=== PATIENT | male | born 1935 | race Caucasian/White ===

== ENCOUNTER → 2016-10-31 | Outpatient (REF) ==
[~2016-10-31] MED LIST: ALBU17IN INH; ALBU17IN2 INH; AMLO10TA2 PO; ATEN50TA2 PO; Aranesp SC; CELE20TA PO; CITA20TA4 PO; CITA40TA4 PO; DOXY100C PO; FLOM5CAP PO; LEVA750T PO; LEVO112T2 PO; LEVO200T4 PO; LIPI20TA PO; NAME21CA PO; NYST-6 TOP; NYST100024 TOP; PANT40TA2 PO; PERIDEX RINSE MT; POTA10TA16 PO; POTA25TA4 PO; POTA75TA2 PO; PROTPAK PO; SAVICAP PO; SENN1TAB2 PO; SERT-141 PO; SIMV40TA2 PO; TRAM37.53 PO; TYLE325T5 PO; XANA0.5T PO
== END ==
LOC: SKLAB4 10:06
PROVIDERS: ATTEND Internal Medicine
DX: R50.9 Fever, unspecified (principal); J02.9 Acute pharyngitis, unspecified

== ENCOUNTER → 2016-11-04 | Outpatient (REF) | payer MEDICARE, MEDICAID ==
[~2016-11-04] MED LIST changes: +DULC10SU2 PR; +ENEM1ENE4 PR; +ENSULIQ64 PO; +FEVE650S3 PR; +GUAIDM5UD PO; +MILKSUS PO; +MIRT1TAB PO; +SENN8.6T54 PO
--- NOTE | 2016-11-04 10:20 | REP ---
Portable chest x-ray: Semi-erect AP view. History: Fever and cough. Comparison study: September 24, 2016. Findings: The lungs are exposed at a relatively low inspiratory level similar to the prior study. No infiltrate is seen. Pleural angles are sharp. Mild cardiomegaly is observed. Pulmonary vasculature is not increased. Impression: No acute disease. Signed by Jose Maria Norman MD 11/04/2016 10:24 A
== END ==
LOC: SKLAB3 08:48
PROVIDERS: ATTEND Internal Medicine
DX: R50.9 Fever, unspecified (principal); R05 Cough

== ENCOUNTER 2016-11-07 17:01 | Inpatient (IN) | payer MEDICARE, MEDICAID ==
[~2016-11-07] VITALS: Ht 182.9 cm; Wt 76.4 kg
[~2016-11-07 17:01] MED LIST changes: -DULC10SU2 PR; -ENEM1ENE4 PR; -ENSULIQ64 PO; -FEVE650S3 PR; -GUAIDM5UD PO; -MILKSUS PO; -MIRT1TAB PO; -SENN8.6T54 PO
[2016-11-07 17:50] LABS: BASO % 0.1 % (0.0-1.0); EOS # 0.1 K/mm3 (0.0-0.50); EOS % 0.4 % (0.0-3.0); LARGE UNSTAINED CELL # 0.1 K/mm3 (0.0-0.4); LARGE UNSTAINED CELL % 0.9 % (0.0-4.0); LYMPH # 1.1 K/mm3 (1.5-4.5); LYMPH % 7.4 % (24.0-44.0); MEAN CORPUSCULAR HEMOGLOBIN 29.7 pg (27.0-33.0); MEAN CORPUSCULAR VOLUME 93.1 fl (80.0-96.0); MONO # 0.3 K/mm3 (0.0-0.8); NEUTROPHILS # 13.3 K/mm3 (1.8-7.7); NEUTROPHILS % 89.2 % (36.0-66.0); PLATELET COUNT, AUTOMATED 297 k/mm3 (150-450); WHITE BLOOD COUNT 14.9 K/mm3 (4.0-10.0)
[2016-11-07 18:01] LABS: CALCIUM LEVEL 8.6 MG/DL (8.8-10.2); CREATININE FOR GFR 1.83 MG/DL (0.70-1.30); POTASSIUM SERUM 3.7 MEQ/L (3.5-5.1)
[2016-11-07] MEDS ORDERED: ONDANSETRON 4MG/2ML VIAL (J2405) IV PRN (19:45)
--- NOTE | 2016-11-07 19:46 | REP ---
AP portable chest: 11/07/2016: Comparison: 11/04/2016, 09/24/2016. Clinical history dyspnea. Findings. Lungs are quite hypoinflated, even more so than the previous studies. Elevation of the right diaphragm compared to the left is seen. There is basilar atelectatic change along the right diaphragm. The heart size is difficult to evaluate it appears grossly unchanged from previous study and I suspect some cardiomegaly. The aorta is tortuous. The airway is intact. There are right upper quadrant clips from prior cholecystectomy. Degenerative changes are seen in the spine and shoulders. Impression: 1. Cardiomegaly without demetrius edema. 2. Low lung volumes with some atelectatic changes along the elevated right diaphragm. No definite effusion, visible infiltrate or other acute finding. Very limited portable semi-erect chest. Signed by Hieu Nolen MD 11/07/2016 08:07 P
[2016-11-07] MEDS ORDERED: FUROSEMIDE 40 MG/4 ML VIAL (J1940) As Ordered ONE (19:55)
[2016-11-07] MEDS ORDERED: MIRT1TAB PO (19:58)
[2016-11-07] MEDS ORDERED: ENSULIQ64 PO (19:58)
[2016-11-07] MEDS ORDERED: GUAIDM5UD PO (19:58)
[2016-11-07] MEDS ORDERED: AMLO10TA2 PO (20:04)
[2016-11-07] MEDS ORDERED: ENEM1ENE4 PR (20:04)
[2016-11-07] MEDS ORDERED: DULC10SU2 PR (20:04)
[2016-11-07] MEDS ORDERED: TYLE325T5 PO (20:04)
[2016-11-07] MEDS ORDERED: SENN8.6T54 PO (20:04)
[2016-11-07] MEDS ORDERED: FEVE650S3 PR (20:04)
[2016-11-07] MEDS ORDERED: MILKSUS PO (20:04)
[2016-11-07] MEDS: SENOKOT S TAB PO SCH (21:00)
[2016-11-07] MEDS ORDERED: LevoFLOXacin 250 MG in APPROPRIATE DILUENT 1 EA IV SCH (22:00)
--- NOTE | 2016-11-07 22:19 | HPE ---
DATE OF ADMISSION: 11/07/2016 PRIMARY CARE PROVIDER: Milana Luevano DO CHIEF COMPLAINT: Patient presented from [facility] for increased shortness of breath, hypoxia, cough, and lethargy. PAST MEDICAL HISTORY: 1. Hypertension. 2. Hyperlipidemia. 3. Hypothyroidism. 4. Multiple myeloma, status post donor bone transplant in 1998. 5. History of chronic urinary retention, has chronic indwelling Martin for 1 year. 6. Gastroesophageal reflux disease (GERD). 7. 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 10. Compression vertebral fractures with bilateral lower extremity weakness. 11. History of aspiration. 12. Recurrent dehydration. 13. Esophageal dysmotility. He has a percutaneous endoscopic gastrostomy (PEG) tube in place. 14. Osteoarthritis. 15. History of chronic kidney disease stage 3. 16. Dementia. 17. Hypothyroidism. 18. History of multiple falls and inability to walk. HISTORY OF PRESENT ILLNESS: This is an 81-year-old male from [facility] who has been there for 1 month after prolonged hospitalization from August to September here where he was treated for urinary tract infection, vertebral fracture, dehydration, acute kidney injury, who had been having cough for the past 4 days and also an episode of temperature of 101.5 about 4 days ago. The patient was getting cough syrup. He had a chest x-ray done 4 days ago, which did not reveal any abnormalities; however, this morning, he was noted to be hypoxic, requiring oxygen, when at baseline he does not require any. He was also lethargic and complained of shortness of breath and was having congested cough and so was sent to the emergency room for evaluation. In the emergency department, the patient was afebrile. Was oxygenating at 89 to 90% on room air. His chest x-ray showed chronically elevated right hemidiaphragm. Cardiomegaly without any edema with small lung volumes and some atelectatic changes, but x-ray was very limited in the study. The patient was also noted to have a sodium of 155 with a creatinine of 1.8, which is elevated from baseline. The patient had a BNP of 1300. The patient was diagnosed with hyponatremia, dehydration, acute kidney injury. Because of her elevated BNP, there was concern for congestive heart failure (CHF) in view of the diastolic dysfunction, and so he was also given a dose of Lasix in the emergency room. Subsequently, the patient was admitted to the hospitalist service for dehydration, metabolic encephalopathy, hyponatremia, and acute kidney injury. The patient's UA and urine culture have been ordered, but the results are not available. The patient has a white count of 14.9, there is no definite source of infection found at this point. PAST SURGICAL HISTORY: 1. Cholecystectomy 30 years ago. SOCIAL HISTORY: The patient does not smoke. Does not use recreational drugs. No history of alcohol abuse. ALLERGIES: PENICILLIN. FAMILY HISTORY: HOME MEDICATIONS: - Tylenol 650 mg per rectum every four hours as needed - Tylenol 650 mg by mouth every four hours as needed - amlodipine 10 mg daily - atenolol 75 mg daily - bisacodyl 10 mg per rectum daily as needed - Colace and Senna one tablet by mouth twice a day - Enema one daily as needed for constipation - Ensure Life liquid one twice a day - dextromethorphan 10 mL syrup every six hours as needed - Synthroid 225 mcg by mouth daily - memantine 21 mg by mouth daily - milk of magnesia 30 mL by mouth daily as needed for constipation - mirtazapine 7.5 mg at bedtime - pantoprazole 40 mg by mouth daily - sertraline 150 mg by mouth twice a day - SAVision one capsule by mouth twice a day REVIEW OF SYSTEMS: The patient is very lethargic at this point. Responds only to when in pain and then he does wake up a little bit and answers "yes," no further history can be elicited from the patient, most of the history came from review of chart and from , who is present at the bedside. The patient had an episode of fever four days ago at 101.5 maximum temperature (t-max). Since then, he has had no fever. However, he has been having cough with some expectoration going on for the past 4 days . This morning, he has been noted to be very lethargic. No history of any diarrhea or dehydration. No history of any chest pain. PHYSICAL EXAMINATION: VITAL SIGNS: Blood pressure 118/66, pulse 64, respiratory rate 20, temperature 97.8, pulse oximetry 97% on room air. GENERAL: The patient is drowsy, responding to pain and vigorous shaking. HEENT: Normocephalic, atraumatic. Dry mucous membranes. Anicteric eyes. CHEST: Coarse breath sounds present bilaterally. Decreased breath sounds on the right base. CARDIOVASCULAR: S1, S2 regular. No rub, murmur, or gallop. ABDOMEN: Soft, nontender. Bowel sounds present. Has PEG tube in place. EXTREMITIES: No edema. GENITOURINARY: The patient has a chronic indwelling Martin. LABORATORY DATA: WBC 14.9, hemoglobin 10.5, platelets 297. Sodium 155, potassium 3.7, chloride 114, bicarbonate 33, BUN 73, creatinine 1.83, glucose 166, calcium 8.6. Troponin 0.32. BNP 1300. Chest x-ray shows cardiomegaly without demetrius edema, lower lung volumes with some atelectatic changes, along with elevated right hemidiaphragm. There is no effusion or infiltrates, or any other acute findings. Very limited study. ASSESSMENT AND PLAN: This is an 81-year-old male who has been admitted to the hospitalist service for metabolic encephalopathy, hypernatremia, acute kidney injury, and dehydration. PLAN: 1. For metabolic encephalopathy, probably due to hypernatremia, we will manage hypernatremia with 5% dextrose and free water through PEG tube. 2. Hypernatremia. Possibly due to dehydration and inadequate free water intake. We will give Efudex dose and free water through PEG tube. 3. Acute kidney injury due to prerenal causes, mostly dehydration. WE will hydrate the patient. 4. Leukocytosis. Could be reactive; however, cannot rule out any underlying source of infection, either in the urine. In view of his chronic indwelling Martin, may have a urinary tract infection (UTI) or may have some infiltrates in the retrocardiac area, so we will get a CT of the chest done. If UA or CT chest is suggestive of infection, we will start the patient on antibiotic. 5. Hypothyroidism. We will continue with Synthroid. 6. Hypertension. We will continue with amlodipine and atenolol with hold parameters. 7. Dementia. We will hold sertraline, mirtazapine, and memantine at present until the patient is more awake and back to his baseline mental status. 8. Deep vein thrombosis (DVT) prophylaxis has been ordered. 9. For gastrointestinal prophylaxis, we will continue with pantoprazole. 10. Feeding. We will continue with tube feeding with free water supplementation. 11. Elevated troponin. Could be due to acute renal failure; however, we will repeat cardiac enzymes two more sets.
--- NOTE | 2016-11-08 00:20 | REPUSA ---
CLINICAL STATEMENT: Rule out pneumonia TECHNIQUE: CT of the chest was performed without intravenous contrast by obtaining contiguous axial s lices from level of the thyroid gland to level of the kidneys. Post imaging 3-D technique processing was utilized and multiplanar reformats were obtained in coronal and sagittal projections. COMPARISON: CT chest 11.06.15 FINDINGS: Lower neck: Visualized thyroid gland unremarkable. No mass or suspicious cystic lesion. Lungs / airways / pleura: There are bilateral pulmonary opacities appearing more subsegmental atelect asis in the lower lobes toward the bases, whereas more infiltrating consolidative-like opacities in t he posterior right upper and superior right lower lobes. Central and visualized peripheral airways ar e patent. Mediastinum: No mass or suspicious cystic lesion. Heart normal in size with mitral valve prosthesis a nd coronary no pericardial effusion. Thoracic aorta and pulmonary trunk normal in caliber. Lymph nodes: No enlarged adenopathy. Upper abdomen: Status post cholecystectomy. Osseous structures/Soft tissues/thoracic wall: Thoracic arthrosis with severe T6, T12 and L2 (with gaspar rrounding area) compression deformities with sclerotic changes. Multilevel moderate degenerative felix ges of the cervical and thoracic spine with disc space narrowing. No soft tissue abnormality or herni a. Line/devices: None. IMPRESSION: 1. Posterior right upper and superior right lower lobe infiltrate and consolidative opacities would b e consistent with clinical suspicion of pneumonia. 2. There are severe T6, T12 and L2 compression deformities which may be chronic although in the setti ng of recent trauma or tenderness MRI thoracic spine can be obtained for better evaluation for acute fracture.
[2016-11-08 00:59] VITALS: BP 135/71
[2016-11-08] MEDS: D5W 1,000 ML IV SCH ×2 (01:15→11:40)
--- NOTE | 2016-11-08 01:21 | EDDOCDS ---
Physician Documentation [facility] Name: Saúl Cormier Age: 81 yrs Sex: Male : 1935 Arrival Date: 11/07/2016 Time: 17:01 Bed Admit Hold Private MD: Milana Luevano E Disposition: 11/07/16 19:46 Hospitalization ordered by Lourdes Rich for Inpatient Admission. Preliminary diagnosis is Shortness of breath - Rule Out Congestive Heart Failure. - Bed requested for 4 [place]. - Status is Inpatient Admission. cz - Condition is Stable. - Problem is new. - Symptoms are unchanged. Historical: - Allergies: PENICILLINS (Rash); - Home Meds: 1. mirtazapine 7.5 mg Oral tab once daily 2. Namenda XR 21 mg oral CSpX 1 cap once daily 3. Protonix 40 mg Oral TbEC 1 tab once daily 4. Atenolol 75 mg Oral once daily 5. Sertraline 150 mg daily 6. Norvasc 10 mg Oral tab 1 tab once daily 7. Senna Plus oral tab daily 8. Levothyroxine 334 mcg Oral once daily - PMHx: Hypercholesterolemia; Hypertension; Hypothyroidism; kidney failure; Multiple Myeloma; - PSHx: Unable to obtain; - Social history: Smoking status: Patient states former smoker of tobacco. No barriers to communication noted, The patient speaks fluent Lao. - Family history: Not pertinent. - : The pt / caregiver states he / she is not on anticoagulants. Home medication list is obtained from the patient. - Exposure Risk Screening:: None identified. Vital Signs: 11/07 17:17 BP 120 / 71; Pulse 66; Resp 20; Temp 97.8(TE); Pulse Ox 90% on R/A; Weight 89.81 kg / jmk 198 lbs; Height 6 ft. (182.88 cm); 19:01 BP 119 / 69 (auto/); jp6 19:02 Pulse 62 MON; Pulse Ox 96% ; jp6 19:16 BP 130 / 74 (auto/); jp6 19:17 Pulse 62 MON; jp6 19:23 Pulse 64 MON; Pulse Ox 97% ; jp6 19:31 BP 118 / 66 (auto/); jp6 19:32 Pulse 64 MON; Pulse Ox 97% ; jp6 19:44 Pulse 62 MON; Pulse Ox 97% ; jp6 19:46 BP 131 / 70 (auto/); jp6 20:01 BP 116 / 70 (auto/); jp6 20:02 Pulse 70 MON; Pulse Ox 98% ; jp6 20:16 BP 110 / 68 (auto/); jp6 20:16 Pulse 62 MON; Pulse Ox 99% ; jp6 20:31 BP 111 / 66 (auto/); jp6 20:32 Pulse 64 MON; jp6 20:46 BP 117 / 66 (auto/); jp6 20:47 Pulse 62 MON; jp6 21:01 BP 113 / 64 (auto/); jp6 21:02 Pulse 66 MON; jp6 21:16 BP 110 / 63 (auto/); jp6 21:19 Pulse 64 MON; Pulse Ox 98% ; jp6 21:46 BP 120 / 71 (auto/); jp6 21:46 Pulse 66 MON; Pulse Ox 96% ; jp6 22:01 BP 109 / 56 (auto/); jp6 22:02 Pulse 64 MON; Pulse Ox 96% ; jp6 22:16 BP 112 / 57 (auto/); jp6 22:16 Pulse 68 MON; Pulse Ox 98% ; jp6 22:31 BP 111 / 59 (auto/); jp6 22:32 Pulse 70 MON; jp6 22:46 BP 107 / 59 (auto/); jp6 22:47 Pulse 70 MON; jp6 22:57 Pulse 70 MON; Pulse Ox 96% ; jp6 23:01 BP 118 / 66 (auto/); jp6 23:02 Pulse 74 MON; Pulse Ox 97% ; jp6 23:11 Pulse 66 MON; Pulse Ox 96% ; jp6 23:16 BP 117 / 71 (auto/); jp6 23:31 BP 101 / 59 (auto/); jp6 23:32 Pulse 66 MON; jp6 23:46 BP 99 / 57 (auto/); jp6 23:47 Pulse 64 MON; jp6 11/08 00:01 BP 102 / 62 (auto/); jp6 00:02 Pulse 62 MON; jp6 00:16 BP 118 / 64 (auto/); jp6 00:16 Pulse 66 MON; jp6 11/07 17:17 Body Mass Index 26.85 (89.81 kg, 182.88 cm) nat MDM: 11/07 17:40 Financial registration complete. gjb 17:44 Billboard Poster/Pulse Ox/q 30 min VS ordered. br1 17:44 IV Saline Lock ordered. br1 17:44 Rhythm Strip to chart ordered. br1 17:44 Undress patient appropriately for examination ordered. br1 17:45 B-Type Natiuretic Peptide Ordered. EDMS 17:45 Basic Metabolic Profile Ordered. EDMS 17:45 CBC with Diff Ordered. EDMS 17:46 Cardiac Injury Profile Ordered. EDMS 17:46 Troponin Ordered. EDMS 17:46 -Influenza A&B Rapid Antigen - Nose Ordered. EDMS 17:46 ECG WITH READING ER PHYS+CARDIAG ordered. EDMS 17:47 [facility] Payment Agreement was scanned into [employer] and attached to record. gjb 18:16 Chest, 1 View Ordered. EDMS 19:30 BED REQUEST+ADM ordered. EDMS 19:32 B-Type Natiuretic Peptide Reviewed. br1 19:32 Basic Metabolic Profile Reviewed. br1 19:32 CBC with Diff Reviewed. br1 19:32 Cardiac Injury Profile Reviewed. br1 19:32 Troponin Reviewed. br1 19:32 -Influenza A&B Rapid Antigen - Nose Reviewed. br1 19:41 Furosemide 40 mg IVP once ordered. br1 21:07 CARDIAC MARKER PANEL Ordered. EDMS 21:07 CARDIAC MARKER PANEL Ordered. EDMS 21:08 Admission / Observation Status ordered. EDMS 21:08 NPO DIET ordered. EDMS 21:11 CBC WITH DIFFERENTIAL Ordered. EDMS 21:11 BASIC METABOLIC PROFILE Ordered. EDMS 21:19 URINALYSIS Ordered. EDMS 21:19 URINE CULTURE Ordered. EDMS 21:29 CT Chest without contrast Ordered. EDMS 21:34 CARDIAC MARKER PANEL Ordered. EDMS Administered Medications: 20:00 Drug: Furosemide 40 mg [furosemide 10 mg/mL injection solution (4 mL)] Route: IVP; jp6 Site: left antecubital; Signatures: Dispatcher [employer] EDMS Julien Mccrary RN RN jmk Zecher, Calvin, RN RN cz Lopresti, Mary-Elizabeth, Head P[employer] Unit ml3 Loki George MD MD br1 Smitha Wilkinson Jessica RN jp6 The chart was reviewed and I authenticate all verbal orders and agree with the evaluation and treatment provided.Corrections: (The following items were deleted from the chart) 18:38 17:46 Chest, 2 view (PA\E\Lat)+XR ordered. EDMS EDMS :18 21:11 ARTERIAL BLOOD GAS ordered. EDMS EDMS 21:34 21:07 CARDIAC MARKER PANEL ordered. EDMS EDMS Attachments: 17:47 [facility] Payment Agreement gjb [email or web address]
--- NOTE | 2016-11-08 01:21 | EDDOCDS ---
Nurse's Notes [facility] Name: Saúl Cormier Age: 81 yrs Sex: Male : 1935 Arrival Date: 11/07/2016 Time: 17:01 Bed Admit Hold Private MD: Milana Luevano E Diagnosis: Shortness of breath-Rule Out Congestive Heart Failure Presentation: 11/07 17:12 Presenting complaint: Patient states: SOB onset this am. congested cough. without pain. [facility] Adult Sepsis Screening: The patient does not have new or worsening altered mentation. Patient has a respiratory rate of greater than or equal to 22 (1 point). Systolic blood pressure is greater than 100. Patient has a qSOFA score of 1- Negative Sepsis Screen. Suicide/Homicide risk assessment- the patient denies having any suicidal and/or homicidal ideations and does not present with any other emotional, behavioral or mental health complaints. Status: retired. Transition of care: patient was received from. 17:12 Acuity: RACHEL Level 3 [facility] 17:12 Method Of Arrival: Ambulance [facility] Triage Assessment: 17:14 General: Appears debilitated male with congested cough. alert, but poor historian. resp jmk labored and demonstrates work of breathing. Feeding tube intact to mid abd. Martin patent with cloudy urine.. Pain: Denies pain. Respiratory: Onset: The symptoms/episode began/occurred this morning, Breath sounds are coarse bilaterally. in left posterior lower lobe and right posterior lower lobe. GI: Abdomen is flat, non- distended feeding tube noted to mid abd. Historical: - Allergies: PENICILLINS (Rash); - Home Meds: 1. mirtazapine 7.5 mg Oral tab once daily 2. Namenda XR 21 mg oral CSpX 1 cap once daily 3. Protonix 40 mg Oral TbEC 1 tab once daily 4. Atenolol 75 mg Oral once daily 5. Sertraline 150 mg daily 6. Norvasc 10 mg Oral tab 1 tab once daily 7. Senna Plus oral tab daily 8. Levothyroxine 334 mcg Oral once daily - PMHx: Hypercholesterolemia; Hypertension; Hypothyroidism; kidney failure; Multiple Myeloma; - PSHx: Unable to obtain; - Social history: Smoking status: Patient states former smoker of tobacco. No barriers to communication noted, The patient speaks fluent French. - Family history: Not pertinent. - : The pt / caregiver states he / she is not on anticoagulants. Home medication list is obtained from the patient. - Exposure Risk Screening:: None identified. Screenin:32 Screening information is obtained from the patient. Fall risk: At risk due to prior [facility] history of falls. Assistance ADL's: Requires assistance with meal preparation, this assistance is provided by residence staff, bathing, assistance is provided by residence staff, dressing, assistance is provided by residence staff, toileting, assistance is provided by residence staff, ambulation, assistance is provided by residence staff, housework, assistance is provided by residence staff, medication administration, assistance is provided by residence staff. Abuse/DV Screen: The patient / caregiver reports he/she is: not in a situation that causes fear, pain or injury. Nutritional screening: No deficits noted. Advance Directives: Currently, there is no health care proxy. There is no active DNR order. There is no living will. 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 Advance directive information has not previously been placed in an [facility] medical record. home support is adequate. Assessment: 18:09 General: Appears appears debilitated. lips dry. resting with eyes closed resp regular jmk and is mouth breathing. does rouse to verbal stimuli. maintaining sat of 97% with 4 l NC.. 19:34 General: Appears in no apparent distress, comfortable, to be sleeping. Behavior is jp6 appropriate for age, cooperative. Pain: Denies pain. Neurological: No deficits noted. Level of Consciousness is obeys commands, Oriented to person. EENT: No deficits noted. Cardiovascular: Capillary refill < 3 seconds Heart tones S1 S2 present Rhythm is sinus rhythm No ectopy. Respiratory: Airway is patent Respiratory effort is even, unlabored, Breath sounds with rales inspiratory expiratory bilaterally. in right middle lobe, left lower lobe, right lower lobe, left posterior lower lobe, right posterior middle lobe and right posterior lower lobe Breath sounds with rhonchi. GI: Abdomen is flat, non- distended Bowel sounds present X 4 quads. : Martin in place Urine is cloudy. Derm: Skin is pink, warm & dry. Musculoskeletal: No deficits noted. 20:30 Reassessment: Critical care time stopped, patient has stabilized. Patient denies pain jp6 at this time. Neurological: Level of Consciousness is obeys commands, Oriented to person. Cardiovascular: Rhythm is sinus rhythm No ectopy. Respiratory: Breath sounds with rales Breath sounds with rhonchi inspiratory expiratory bilaterally. in right middle lobe, left lower lobe, right lower lobe, left posterior lower lobe, right posterior middle lobe and right posterior lower lobe. Derm: Skin is pink, warm & dry. 21:30 Reassessment: Patient appears in no apparent distress at this time. Patient denies pain jp6 at this time. General: Appears comfortable, to be sleeping. Behavior is cooperative. Neurological: Level of Consciousness is obeys commands. Cardiovascular: Rhythm is sinus rhythm No ectopy. Derm: Skin is pink, warm & dry. 22:34 Reassessment: Patient appears in no apparent distress at this time. Patient denies pain jp6 at this time. General: Behavior is appropriate for age, cooperative. Pain: Denies pain. Neurological: Level of Consciousness is obeys commands, Oriented to person. EENT: No deficits noted. Cardiovascular: Rhythm is sinus rhythm No ectopy. Respiratory: Airway is patent Respiratory effort is even, unlabored, Breath sounds with rhonchi inspiratory expiratory bilaterally. Derm: Skin is pink, warm & dry. 23:30 Reassessment: Patient appears in no apparent distress at this time. pt appears to be jp6 sleeping.Turned and repositioned.Martin catheter is patent and drng. Feeding is going at 30ml/hr.. 11/08 00:17 Reassessment: Patient appears in no apparent distress at this time. General: Appears to jp6 be sleeping. Neurological: No deficits noted. Cardiovascular: Rhythm is sinus rhythm No ectopy. Respiratory: Airway is patent Respiratory effort is even, unlabored. Derm: Skin is pink, warm & dry. Vital Signs: 11/07 17:17 BP 120 / 71; Pulse 66; Resp 20; Temp 97.8(TE); Pulse Ox 90% on R/A; Weight 89.81 kg; [facility] Height 6 ft. (182.88 cm); 19:01 BP 119 / 69 (auto/); jp6 19:02 Pulse 62 MON; Pulse Ox 96% ; jp6 19:16 BP 130 / 74 (auto/); jp6 19:17 Pulse 62 MON; jp6 19:23 Pulse 64 MON; Pulse Ox 97% ; jp6 19:31 BP 118 / 66 (auto/); jp6 19:32 Pulse 64 MON; Pulse Ox 97% ; jp6 19:44 Pulse 62 MON; Pulse Ox 97% ; jp6 19:46 BP 131 / 70 (auto/); jp6 20:01 BP 116 / 70 (auto/); jp6 20:02 Pulse 70 MON; Pulse Ox 98% ; jp6 20:16 BP 110 / 68 (auto/); jp6 20:16 Pulse 62 MON; Pulse Ox 99% ; jp6 20:31 BP 111 / 66 (auto/); jp6 20:32 Pulse 64 MON; jp6 20:46 BP 117 / 66 (auto/); jp6 20:47 Pulse 62 MON; jp6 21:01 BP 113 / 64 (auto/); jp6 21:02 Pulse 66 MON; jp6 21:16 BP 110 / 63 (auto/); jp6 21:19 Pulse 64 MON; Pulse Ox 98% ; jp6 21:46 BP 120 / 71 (auto/); jp6 21:46 Pulse 66 MON; Pulse Ox 96% ; jp6 22:01 BP 109 / 56 (auto/); jp6 22:02 Pulse 64 MON; Pulse Ox 96% ; jp6 22:16 BP 112 / 57 (auto/); jp6 22:16 Pulse 68 MON; Pulse Ox 98% ; jp6 22:31 BP 111 / 59 (auto/); jp6 22:32 Pulse 70 MON; jp6 22:46 BP 107 / 59 (auto/); jp6 22:47 Pulse 70 MON; jp6 22:57 Pulse 70 MON; Pulse Ox 96% ; jp6 23:01 BP 118 / 66 (auto/); jp6 23:02 Pulse 74 MON; Pulse Ox 97% ; jp6 23:11 Pulse 66 MON; Pulse Ox 96% ; jp6 23:16 BP 117 / 71 (auto/); jp6 23:31 BP 101 / 59 (auto/); jp6 23:32 Pulse 66 MON; jp6 23:46 BP 99 / 57 (auto/); jp6 23:47 Pulse 64 MON; jp6 11/08 00:01 BP 102 / 62 (auto/); jp6 00:02 Pulse 62 MON; jp6 00:16 BP 118 / 64 (auto/); jp6 00:16 Pulse 66 MON; jp6 11/07 17:17 Body Mass Index 26.85 (89.81 kg, 182.88 cm) [facility] Vitals: 11/07 17:17 Log In Time N/A - ambulance arrival. [facility] ED Course: 17:02 Patient visited by Carrie Shannon, External Grinder Tool. lbd 17:02 Milana Luevano is Private Physician. lbd 17:02 Patient moved to Waiting lbd 17:03 Patient moved to 5 lbd 17:06 Loki George MD is Attending Physician. br1 17:13 Triage Initiated jmk 17:32 quality assurance monitor on. Pulse ox on. jmk 17:32 Maintain field IV. Gauge & site: 18 lac. jmk 17:34 Patient visited by Loki George MD. br1 17:47 [facility] Payment Agreement was scanned into [facility] and attached to record. gjb 17:48 B-Type Natiuretic Peptide Sent. jmk 17:48 Basic Metabolic Profile Sent. jmk 17:48 CBC with Diff Sent. jmk 17:48 Cardiac Injury Profile Sent. jmk 17:48 Troponin Sent. jmk 17:50 Patient visited by Dina Segovia PCA. jlf 17:50 Patient visited by Dina Segovia PCA. jlf 17:50 EKG done. (by ED staff). Reviewed by Loki George MD. jlf 18:11 -Influenza A&B Rapid Antigen - Nose Sent. jmk 19:08 Bibi Montero,RN is Primary Nurse. jp6 19:08 Patient visited by Bibi Montero,RN. jp6 19:32 The patient / caregiver is instructed regarding the plan of care and ED course. jp6 19:32 O2 via nasal cannula \T\ 4L/min. jp6 19:46 Lourdes Rich is Hospitalizing Provider. br1 20:02 Patient moved to Admit Hold cz 20:25 Chest, 1 View Returned. EDMS 21:44 Turned to right side. Cleaned of incontinence. Linen changed. arlen 21:45 Patient visited by Belinda Thomas PCA. arlen 22:32 No procedures done that require assistance. jp6 11/08 00:40 CT Chest without contrast Returned. EDMS Administered Medications: 11/07 20:00 Drug: Furosemide 40 mg [furosemide 10 mg/mL injection solution (4 mL)] Route: IVP; jp6 Site: left antecubital; Order Results: Lab Order: B-Type Natiuretic Peptide; SPEC'M 11/07/16 17:23 Test: BRAIN NATRIURETIC PEPTIDE; Value: 1300; Range: <100; Abnormal: Above high normal; Units: PG/ML; Status: F Lab Order: Basic Metabolic Profile; SPEC'M 11/07/16 17:23 Test: GLUCOSE, FASTING; Value: 166; Range: 83-110; Abnormal: Above high normal; Units: MG/DL; Status: F Test: BLOOD UREA NITROGEN; Value: 73; Range: 7-18; Abnormal: Above high normal; Units: MG/DL; Status: F Test: CREATININE FOR GFR; Value: 1.83; Range: 0.70-1.30; Abnormal: Above high normal; Units: MG/DL; Status: F Test: GLOMERULAR FILTRATION RATE; Value: 38.0; Range: >35; Status: F Test: SODIUM LEVEL; Value: 155; Range: 136-145; Abnormal: Above high normal; Units: MEQ/L; Status: F Test: POTASSIUM SERUM; Value: 3.7; Range: 3.5-5.1; Units: MEQ/L; Status: F Test: CHLORIDE LEVEL; Value: 114; Range: 98-107; Abnormal: Above high normal; Units: MEQ/L; Status: F Test: CARBON DIOXIDE LEVEL; Value: 33; Range: 21-32; Abnormal: Above high normal; Units: MEQ/L; Status: F Test: ANION GAP; Value: 8; Range: 8-16; Units: MEQ/L; Status: F Test: CALCIUM LEVEL; Value: 8.6; Range: 8.8-10.2; Abnormal: Below low normal; Units: MG/DL; Status: F Test Note: ; Units are mL/min/1.73 m2 Chronic Kidney Disease Staging per NKF: Stage I & II GFR >=60 Normal to Mildly Decreased Stage III GFR 30-59 Moderately Decreased Stage IV GFR 15-29 Severely Decreased Stage V GFR <15 Very Little GFR Left ESRD GFR <15 on SKIVER HEEL TAP Lab Order: CBC with Diff; SPEC'M 11/07/16 17:23 Test: WHITE BLOOD COUNT; Value: 14.9; Range: 4.0-10.0; Abnormal: Above high normal; Units: K/mm3; Status: F Test: RED BLOOD COUNT; Value: 3.52; Range: 4.30-6.10; Abnormal: Below low normal; Units: M/mm3; Status: F Test: HEMOGLOBIN; Value: 10.5; Range: 14.0-18.0; Abnormal: Below low normal; Units: g/dl; Status: F Test: HEMATOCRIT; Value: 32.7; Range: 42.0-52.0; Abnormal: Below low normal; Units: %; Status: F Test: MEAN CORPUSCULAR VOLUME; Value: 93.1; Range: 80.0-96.0; Units: fl; Status: F Test: MEAN CORPUSCULAR HEMOGLOBIN; Value: 29.7; Range: 27.0-33.0; Units: pg; Status: F Test: MEAN CORPUSCULAR HGB CONC; Value: 32.0; Range: 32.0-36.5; Units: g/dl; Status: F Test: RED CELL DISTRIBUTION WIDTH; Value: 14.0; Range: 11.5-14.5; Units: %; Status: F Test: PLATELET COUNT, AUTOMATED; Value: 297; Range: 150-450; Units: k/mm3; Status: F Test: NEUTROPHILS %; Value: 89.2; Range: 36.0-66.0; Abnormal: Above high normal; Units: %; Status: F Test: LYMPH %; Value: 7.4; Range: 24.0-44.0; Abnormal: Below low normal; Units: %; Status: F Test: MONO %; Value: 2.0; Range: 0.0-5.0; Units: %; Status: F Test: EOS %; Value: 0.4; Range: 0.0-3.0; Units: %; Status: F Test: BASO %; Value: 0.1; Range: 0.0-1.0; Units: %; Status: F Test: LARGE UNSTAINED CELL %; Value: 0.9; Range: 0.0-4.0; Units: %; Status: F Test: NEUTROPHILS #; Value: 13.3; Range: 1.8-7.7; Abnormal: Above high normal; Units: K/mm3; Status: F Test: LYMPH #; Value: 1.1; Range: 1.5-4.5; Abnormal: Below low normal; Units: K/mm3; Status: F Test: MONO #; Value: 0.3; Range: 0.0-0.8; Units: K/mm3; Status: F Test: EOS #; Value: 0.1; Range: 0.0-0.50; Units: K/mm3; Status: F Test: BASO #; Value: 0.0; Range: 0.0-0.2; Units: K/mm3; Status: F Test: LARGE UNSTAINED CELL #; Value: 0.1; Range: 0.0-0.4; Units: K/mm3; Status: F Lab Order: Cardiac Injury Profile; SPEC'M 11/07/16 17:23 Test: CPK CREATINE PHOSPHOKINASE; Value: 36; Range: 39-308; Abnormal: Below low normal; Units: U/L; Status: F Test: CK-MB VALUE MASS; Value: 1.0; Range: 0.0-3.6; Units: NG/ML; Status: F Test: MB/CK RELATIVE INDEX; Value: 2.77; Range: < OR =4; Status: F Test Note: ; DIAGNOSIS CRITERIA MMB ng/ml Relative Index (RI) NON-AMI < or = 5 N/A GOODE [place]ONE > 5 < or = 4 AMI > 5 > 4 Lab Order: Troponin; SPEC'M 11/07/16 17:23 Test: TROPONIN I; Value: 0.32; Range: < 0.10; Abnormal: Above high normal; Units: NG/ML; Status: F Test Note: ; Troponin I Reference Interval for [place] LOCI: 99th Percentile= 0.00-0.045 ng/ml Risk Stratification: <= 0.10 ng/ml Decreased Risk for Adverse Clinical Events. 0.10-1.50 ng/ml Increased Risk for Adverse Clinical Events. Evaluation of additional criterion and/or repeat testing in 2-6 hours is suggested to rule out myocardial damage. >= 1.50 ng/ml Indicative of Myocardial Injury. Lab Order: -Influenza A&B Rapid Antigen - Nose; SPEC'M 11/07/16 18:08 Test: INFLUENZA A RAPID SCR by ICA; Value: INFLUENZA A RESULTS NEGATIVE; Status: F Test: INFLUENZA A RAPID SCR by ICA; Value: Comments:; Status: F Test: INFLUENZA B RAPID SCR by ICA; Value: INFLUENZA B RESULTS NEGATIVE; Status: F Test Note: ; The Influenza test is a direct rapid immunoassay for the qualitative detection of Influenza viral antigen. Cell culture (Viral Culture) testing should be considered to confirm NEGATIVE results and to assist in detecting other viruses that can provide similar clinical symptoms. Please contact the lab within 24 hours ([phone]) if confirmatory testing is desired. Lab Order: CARDIAC MARKER PANEL; SPEC'M 11/07/16 21:21 Test: CPK CREATINE PHOSPHOKINASE; Value: 32; Range: 39-308; Abnormal: Below low normal; Units: U/L; Status: F Test: CK-MB VALUE MASS; Value: 1.0; Range: 0.0-3.6; Units: NG/ML; Status: F Test: MB/CK RELATIVE INDEX; Value: 3.12; Range: < OR =4; Status: F Test: TROPONIN I; Value: 0.35; Range: < 0.10; Abnormal: Above high normal; Units: NG/ML; Status: F Test Note: ; DIAGNOSIS CRITERIA MMB ng/ml Relative Index (RI) NON-AMI < or = 5 N/A GOODE ZONE > 5 < or = 4 AMI > 5 > 4 Lab Order: URINALYSIS; SPEC'M 11/07/16 22:04 Test: APPEARANCE, URINE; Value: HAZY; Range: CLEAR; Status: F Test: COLOR, URINE; Value: YELLOW; Range: YELLOW; Status: F Test: PH,URINE; Value: 5.0; Range: 5.0-9.0; Units: UNITS; Status: F Test: SPECIFIC GRAVITY URINE AUTO; Value: 1.010; Range: 1.002-1.035; Status: F Test: PROTEIN, URINE AUTO; Value: NEGATIVE; Range: NEGATIVE; Units: mg/dL; Status: F Test: GLUCOSE, URINE (UA) AUTO; Value: NEGATIVE; Range: NEGATIVE; Units: mg/dL; Status: F Test: KETONE, URINE AUTO; Value: NEGATIVE; Range: NEGATIVE; Units: mg/dL; Status: F Test: UROBILINOGEN, URINE AUTO; Value: 0.2; Range: 0.0-2.0; Units: mg/dL; Status: F Test: BILIRUBIN, URINE AUTO; Value: NEGATIVE; Range: NEGATIVE; Status: F Test: NITRITE, URINE AUTO; Value: POSITIVE; Range: NEGATIVE; Status: F Test: LEUKOCYTE ESTERASE, URINE AUTO; Value: 2+; Range: NEGATIVE; Abnormal: Above high normal; Status: F Test: BLOOD, URINE BLOOD; Value: 1+; Range: NEGATIVE; Abnormal: Above high normal; Status: F Test: WBC, URINE AUTO; Value: 12; Range: 0-3; Abnormal: Above high normal; Units: /HPF; Status: F Test: RBC, URINE AUTO; Value: 8; Range: 0-3; Abnormal: Above high normal; Units: /HPF; Status: F Test: BACTERIA, URINE AUTO; Value: 1+; Range: NEGATIVE; Abnormal: Above high normal; Status: F Test: SQUAMOUS EPITHELIAL CELL UR AU; Value: 0; Range: 0-6; Units: /HPF; Status: F Test: MUCUS, URINE; Value: SMALL; Range: NEGATIVE; Status: F Test: HYALINE CAST, URINE AUTO; Value: 17; Range: 0-1; Units: /LPF; Status: F Test: AMORPHOUS SEDIMENT; Value: SMALL; Range: NEGATIVE; Abnormal: Above high normal; Status: F Radiology Order: Chest, 1 View Test: Chest, 1 View REASON FOR EXAMINATION: Shortness of Breath; AP portable chest: 11/07/2016:; ; Comparison: 11/04/2016, 09/24/2016.; ; Clinical history dyspnea.; ; Findings. Lungs are quite hypoinflated, even more so than the previous studies.; Elevation of the right diaphragm compared to the left is seen. There is basilar; atelectatic change along the right diaphragm. The heart size is difficult to; evaluate it appears grossly unchanged from previous study and I suspect some; cardiomegaly. The aorta is tortuous. The airway is intact. There are right; upper quadrant clips from prior cholecystectomy. Degenerative changes are seen; in the spine and shoulders.; ; Impression:; ; 1. Cardiomegaly without demetrius edema.; ; 2. Low lung volumes with some atelectatic changes along the elevated right; diaphragm. No definite effusion, visible infiltrate or other acute finding.; Very limited portable semi-erect chest.; ; ; ; ; Signed by; Hieu Nolen MD 11/07/2016 08:07 P; Radiology Order: CT Chest without contrast Test: CT Chest without contrast REASON FOR EXAMINATION: evaluate for pneumonia; ; CLINICAL STATEMENT: Rule out pneumonia; TECHNIQUE: CT of the chest was performed without intravenous contrast by obtaining contiguous axial s; lices from level of the thyroid gland to level of the kidneys. Post imaging 3-D technique processing; was utilized and multiplanar reformats were obtained in coronal and sagittal projections.; COMPARISON: CT chest 11.06.15; FINDINGS:; Lower neck: Visualized thyroid gland unremarkable. No mass or suspicious cystic lesion.; Lungs / airways / pleura: There are bilateral pulmonary opacities appearing more subsegmental atelect; asis in the lower lobes toward the bases, whereas more infiltrating consolidative-like opacities in t; he posterior right upper and superior right lower lobes. Central and visualized peripheral airways ar; e patent.; Mediastinum: No mass or suspicious cystic lesion. Heart normal in size with mitral valve prosthesis a; nd coronary no pericardial effusion. Thoracic aorta and pulmonary trunk normal in caliber.; Lymph nodes: No enlarged adenopathy.; Upper abdomen: Status post cholecystectomy.; Osseous structures/Soft tissues/thoracic wall: Thoracic arthrosis with severe T6, T12 and L2 (with gaspar; rrounding area) compression deformities with sclerotic changes. Multilevel moderate degenerative felix; ges of the cervical and thoracic spine with disc space narrowing. No soft tissue abnormality or herni; a.; Line/devices: None.; IMPRESSION:; 1. Posterior right upper and superior right lower lobe infiltrate and consolidative opacities would b; e consistent with clinical suspicion of pneumonia.; 2. There are severe T6, T12 and L2 compression deformities which may be chronic although in the setti; ng of recent trauma or tenderness MRI thoracic spine can be obtained for better evaluation for acute; fracture.; ; Outcome: 19:46 Decision to Hospitalize by Provider. br1 11/08 00:36 Discharge Assessment: Patient confused, Oriented to person, Patient unable to repeat 3 jp6 named objects, Patient able to independently bathe himself/herself with little or no assistance, to independently dress himself/herself with little or no assistance, to independently attend to toileting needs with little or no assistance, patient administered narcotics - no. The following High Risk Discharge criteria are identified: None. Admitted to Med/Surg accompanied by tech, via stretcher, with oxygen, with chart. Condition: unchanged. CT Study completed. Admission hand-off: Report Faxed Fax receipt verified by 4 juanito. Property :Personal belongings accompany Pt. 01:20 Patient left the ED. cz Signatures: Dispatcher [employer] EDMS Carrie Shannon, External Grinder Tool Unit lbd Julien Mccrary,RN RN Hema Bello, PANKAJ RN cz Loki George MD MD br1 Belinda Thomas, WIND TURBINE SHEET METAL WORKER WIND TURBINE SHEET METAL WORKER Dina Jimenez, WIND TURBINE SHEET METAL WORKER WIND TURBINE SHEET METAL WORKER Smitha Granados Jessica,RN RN jp6 [email or web address]
[2016-11-08] MEDS: VANCOMYCIN HCL 750 MG, VIAL MATE ADAPTER 1 EACH in D5W 250 ML IV SCH ×2 (03:18→11:40)
--- NOTE | 2016-11-08 04:41 | PHACANCOPD ---
PHARMACY VANCOMYCIN DOSING Pt Demographics Demographics Patient Age:81 , Weight:77.500 , Gender: male Adjusted Body Weight Date: 11/08/16, Adjusted Body Weight: [77.5] KgACTUAL WT Vancomycin Vancomycin indication: HCAP Vancomycin Target Ranges: 15-20 mcg/ml Vancomycin Load Y/N: No Load Dose Date Time Vancomycin Load Dose: Date: Time: Vancomycin Dose Date: 11/08/16. Current Vancomycin Dose: [750MG IV Q12H] Intermittent Dosing?: No Labs Labs Laboratory Tests 11/07/16 17:23 Calcium Level 8.6 L, Total Creatine Kinase 36 L, Red Blood Count 3.52 L, Mean Corpuscular Volume 93.1, Mean Corpuscular Hemoglobin 29.7, Mean Corpuscular Hemoglobin Concent 32.0, Red Cell Distribution Width 14.0, Neutrophils (%) (Auto ) 89.2 H, Lymphocytes (%) (Auto) 7.4 L, Monocytes (%) (Auto) 2.0, Eosinophils (% ) (Auto) 0.4, Basophils (%) (Auto) 0.1, Neutrophils # (Auto) 13.3 H, Lymphocytes # (Auto) 1.1 L, Monocytes # (Auto) 0.3, Eosinophils # (Auto) 0.1, Basophils # (Auto) 0.0 Micro Microbiology 11/07/16 Influenza Virus Type A Antigen - Final, Complete 11/07/16 Influenza Virus Type B Antigen - Final, Complete 11/07/16 Urine Culture, Received Pending Creatinine Clearance Date:11/08/16. Creatinine Clearance: [34.7].CALCULATED Pending Labs TROUGH ORDERED FOR 11/08@2300 Assessment and Plan Maintaining Current Dose?: Yes Reason for dose change: No Dose Change Pharmacist Note Pharmacist Note Date: 11/08/16. Pharmacist note:pATIENT W/POSSIBLE HCAP :treating w/meropenem 1 gm iv q12h& Vancomycin 750mg iv q12h(ist trough ordered for tonight @2300) Patient crcl=34.7 Will continue to monitor DENISE [facility] Nov 08, 2016 04:40
[2016-11-08 06:00] VITALS: BP 127/64
[2016-11-08] MEDS: LEVOTHYROXINE 0.112 MG TAB (112 MCG) PO SCH (06:12)
[2016-11-08 06:19] LABS: BASO % 0.1 % (0.0-1.0); EOS % 0.2 % (0.0-3.0); LARGE UNSTAINED CELL # 0.1 K/mm3 (0.0-0.4); LARGE UNSTAINED CELL % 0.4 % (0.0-4.0); LYMPH # 0.4 K/mm3 (1.5-4.5); MEAN CORPUSCULAR HEMOGLOBIN 29.8 pg (27.0-33.0); MEAN CORPUSCULAR HGB CONC 31.7 g/dl (32.0-36.5); MONO # 0.3 K/mm3 (0.0-0.8); MONO % 1.7 % (0.0-5.0); NEUTROPHILS # 19.5 K/mm3 (1.8-7.7); NEUTROPHILS % 95.7 % (36.0-66.0); PLATELET COUNT, AUTOMATED 270 k/mm3 (150-450); RED CELL DISTRIBUTION WIDTH 14.2 % (11.5-14.5); WHITE BLOOD COUNT 20.3 K/mm3 (4.0-10.0)
[2016-11-08 06:26] LABS: CALCIUM LEVEL 8.3 MG/DL (8.8-10.2); CREATININE FOR GFR 1.96 MG/DL (0.70-1.30); GLOMERULAR FILTRATION RATE 35.1 (>35); POTASSIUM SERUM 3.6 MEQ/L (3.5-5.1)
[2016-11-08] MEDS ORDERED: ENOXAPARIN 30 MG/0.3 ML SYR (J1650) SC SCH (09:00)
[2016-11-08] MEDS: amLODIPine 10 MG TAB PO SCH (09:00)
[2016-11-08] MEDS ORDERED: PANTOPRAZOLE 40MG TAB (PROTONIX) PO SCH (09:00)
[2016-11-08] MEDS: MEROPENEM INJ 1 GM in D5W MINI-BAG PLUS 100 ML IV SCH ×2 (09:10→20:05)
[2016-11-08] MEDS: SENOKOT S TAB PO SCH ×2 (09:12→20:05)
[2016-11-08] MEDS: ATENOLOL 50 MG TAB PO SCH (09:13)
[2016-11-08 14:00] VITALS: BP 113/62
[2016-11-08 15:29] VITALS: BP 120/68
[2016-11-08] MEDS: D5W/0.9% SODIUM CHLORIDE 1,000 ML IV SCH (15:34)
--- NOTE | 2016-11-08 16:13 | IPN ---
DATE: 11/08/2016 SUBJECTIVE: Today, the patient tells me that he was having some shortness of breath but he feels as though it is improving. He denies chest pain, lightheadedness, dizziness, nausea or vomiting. Other than feeling a little bit short of breath, he has no specific complaints other than increased chronic back pain. OBJECTIVE: VITAL SIGNS: Temperature 96.8, pulse 78, respiratory rate 20, blood pressure 127/64, oxygen saturation 96% on three liters nasal cannula. The patient has no oxygen requirement at his baseline. GENERAL: He is a frail, elderly, man laying flat in bed at a 60 degree angle. He does not appear to be in any acute distress. HEENT: Chronic facial asymmetry. Very dry mucous membranes. CARDIOVASCULAR: S1, S2, regular. RESPIRATORY: Actually somewhat wheezy. I do not appreciate any rales. He is actually moving air quite well. ABDOMEN: Percutaneous endoscopic gastrostomy (PEG) tube is in place, clean, dry and intact. There is no tenderness. Bowel sounds are present. EXTREMITIES: No clubbing, cyanosis, or edema. LABORATORY STUDIES: WBC 20.3 up from 14.9, hemoglobin 10.2, hematocrit 31.9. Chemistry panel: Sodium 149 improved from 155, potassium 3.6, chloride 109 down from 114, bicarbonate 31, BUN 75 up slightly from 73, creatinine 1.6 up from 1.8. The patient's baseline appears to be 1.3. The patient had several sets of cardiac enzymes which were all fairly similar at 0.32, 0.35, 0.33, 0.31. The patient has a BNP initially at the time presentation which was 1300. He received some D5 and this has dropped to 542. A urinalysis is not impressive for infection. Urine culture and blood cultures are pending. A flu swab and respiratory panel are both negative. The patient did have a CT scan of his chest which reveals posterior right upper and superior right lower infiltrate and consolidative opacities consistent with pneumonia. There are severe T6, T12, and L2 compression deformities which may be chronic. ASSESSMENT AND PLAN: This is an 81-year-old man who presented from skilled-nursing facility for increased shortness of breath, cough, and lethargy. He reportedly did have a temperature several days ago. PROBLEM LIST: 1. Shortness of breath, hypoxia, cough, and concerning CT scan findings suspicious for healthcare-associated pneumonia. The patient has been started on levofloxacin and vancomycin. At this time, his oxygen requirement has not increased and he appears to be fairly stable. His respiratory status appears to be fairly stable. I will check a methicillin-resistant Staphylococcus aureus (MRSA) screen of his nares, followup his cultures, and narrow antibiotic spectrum as appropriate. I do have concern for a possible aspiration pneumonia. There was also some suggestion that the patient's hypoxia may be related to congestive heart failure (CHF) but clinically the patient does not have distended jugular veins. He does not have rales. He does not have any peripheral edema. His brain natriuretic peptide (BNP) was elevated. However, this decreased with actually D5 administration without essentially any diuresis. Given the patient's elevated blood urea nitrogen (BUN), acute kidney injury and his significant dehydration on examination, I am actually more concerned that he is hypovolemic in the setting of sepsis, and as such I will provide him with D5 normal saline at 75 mL an hour and continue to monitor his renal function, trend his BNP, and evaluate him clinically on a daily basis. Respiratory and flu swab have both been negative. 2. Duncan stools. After my visit with the patient, staff did call and inform me that the patient did have some dark duncan stools. I will check an occult stool for blood. I will hold his pharmacological deep vein thrombosis (DVT) prophylaxis. He has already been started on some gentle IV fluids and we will trend his hemoglobin and hematocrit. I will type and screen him. In the event that it is positive for blood, he may require a gastroenterology evaluation. I will also start him on a proton pump inhibitor (PPI) IV twice a day and discontinue his oral Protonix. I will also place him nothing by mouth for the time being. 3. Hypernatremia, secondary to dehydration, improving with free water administration. 4. Acute kidney injury. As outlined above, possibly secondary to prerenal azotemia. Given his elevated BUN and his very dry mucous membranes, I will provide him with gentle normal saline with D5 and reevaluate his renal function in the morning. 5. Leukocytosis, likely secondary to pneumonia, potentially healthcare-associated versus aspiration given his history. His respiratory status appears to have stabilized for the moment. 6. Hypothyroidism. Continue with Synthroid. 7. Hypertension. He is atenolol with holding parameters. 8. Dementia. The patient is normally on sertraline, mirtazapine, and amantadine. All three of these are being held at the present time. The patient was reportedly somewhat altered at the time of arrival. At the present time when I am examining him, he is aware of the year, the month, and where he is and why he is there. I would recommend restarting in the near future. 9. History of esophageal dysmotility and inability to tolerate enough fluids by mouth. The patient is status post a percutaneous endoscopic gastrostomy (PEG) tube during his last hospitalization. 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 11. Chronic urinary retention. The patient has a suprapubic catheter and it does not seem as though he is experiencing signs or symptoms related to an active urinary tract infection at this time. 12. Troponinemia, possibly related to renal disease. It appears to be relatively stable without any trend. However, during his last admission, he did not have this. We will continue to monitor and trend it closely. He may warrant ischemic workup at some point in the outpatient setting. Should he have any acute symptoms, I would certainly repeat an EKG and cardiac enzymes. 13. DVT prophylaxis. Sequentials and thromboembolic-deterrent stockings (TEDS). No pharmacological agents secondary to possible ongoing bleeding. DISPOSITION: The patient's clinical status remains guarded at this time given his multitude of comorbidities and presentation. His is a DO NOT RESUSCITATE (DNR).
[2016-11-08 16:28] LABS: CALCIUM LEVEL 8.2 MG/DL (8.8-10.2); CREATININE FOR GFR 1.85 MG/DL (0.70-1.30); GLOMERULAR FILTRATION RATE 37.5 (>35); POTASSIUM SERUM 3.9 MEQ/L (3.5-5.1)
[2016-11-08] MEDS: PANTOPRAZOLE 40MG INJ (PROTONIX) (C9113) IV SCH ×2 (16:41→20:05)
[2016-11-08] MEDS: PERCOCET 5MG/325MG TAB PO PRN (18:27)
[2016-11-08 21:10] VITALS: BP 93/54
[2016-11-08] MEDS: NYSTATIN 100,000 UNITS/GM TOPICAL PWD 15 GM TOP SCH (22:02)
[2016-11-09] MEDS: VANCOMYCIN HCL 750 MG, VIAL MATE ADAPTER 1 EACH in D5W 250 ML IV SCH (00:55)
[2016-11-09] MEDS: D5W/0.9% SODIUM CHLORIDE 1,000 ML IV SCH (00:56)
--- NOTE | 2016-11-09 03:54 | PHACANCOPD ---
PHARMACY VANCOMYCIN DOSING Pt Demographics Demographics Patient Age:81 , Weight:77.500 , Gender: male Adjusted Body Weight Date: 11/08/16, Adjusted Body Weight: [77.5] KgACTUAL WT Vancomycin Vancomycin indication: HCAP Vancomycin Target Ranges: 15-20 mcg/ml Vancomycin Load Y/N: No Load Dose Date Time Vancomycin Load Dose: Date: Time: Vancomycin Dose Date: 11/08/16. Current Vancomycin Dose: [750MG IV Q12H] Intermittent Dosing?: No Labs Micro Microbiology 11/08/16 Blood Culture, Received Pending 11/08/16 Blood Culture, Received Pending 11/08/16 Stool Occult Blood (SKY) - Final, Complete 11/08/16 Gastrointestinal Tract Panel (PCR) - Final, Complete Enteroaggregative E.coli Clostridium Difficile A/B 11/08/16 MRSA Screen, Received Pending 11/08/16 Respiratory Virus Panel (PCR) (SKY) - Final, Complete 11/07/16 Influenza Virus Type A Antigen - Final, Complete 11/07/16 Influenza Virus Type B Antigen - Final, Complete 11/07/16 Urine Culture, Received Pending Creatinine Clearance Date:11/08/16. Creatinine Clearance: [34.7].CALCULATED Pending Labs TROUGH ORDERED FOR 11/08@2300=18.5 Assessment and Plan Maintaining Current Dose?: No Reason for dose change: Other Pharmacist Note Pharmacist Note Date: 11/09/16. Pharmacist note:11/08 Vancomycin trough reported as 18.5:scr has not improved greatly(CRCL still near 34)tROUGH IS APPROPRIATE AT 18.5 However to prevent additional accumulation,will adjust regimen to 1 Gram IV Q24H@1800: will continue to monitor Date: 11/08/16. Pharmacist note:pATIENT W/POSSIBLE HCAP :treating w/meropenem 1 gm iv q12h& Vancomycin 750mg iv q12h(ist trough ordered for tonight @2300) Patient crcl=34.7 Will continue to monitor DENISE OLIVIER PHARMACY Nov 09, 2016 03:53
[2016-11-09 05:49] LABS: BASO % 0.1 % (0.0-1.0); EOS # 0.1 K/mm3 (0.0-0.50); EOS % 0.9 % (0.0-3.0); LARGE UNSTAINED CELL # 0.1 K/mm3 (0.0-0.4); LARGE UNSTAINED CELL % 0.5 % (0.0-4.0); LYMPH % 6.7 % (24.0-44.0); MEAN CORPUSCULAR HEMOGLOBIN 29.5 pg (27.0-33.0); MEAN CORPUSCULAR HGB CONC 31.2 g/dl (32.0-36.5); MEAN CORPUSCULAR VOLUME 94.4 fl (80.0-96.0); MONO # 0.3 K/mm3 (0.0-0.8); MONO % 1.8 % (0.0-5.0); NEUTROPHILS # 13.5 K/mm3 (1.8-7.7); PLATELET COUNT, AUTOMATED 294 k/mm3 (150-450); RED CELL DISTRIBUTION WIDTH 14.1 % (11.5-14.5)
[2016-11-09 05:50] VITALS: BP 132/73
[2016-11-09 06:10] LABS: CREATININE FOR GFR 1.64 MG/DL (0.70-1.30); GLOMERULAR FILTRATION RATE 43.1 (>35); POTASSIUM SERUM 3.6 MEQ/L (3.5-5.1)
[2016-11-09] MEDS: LEVOTHYROXINE 0.112 MG TAB (112 MCG) PO SCH (06:14)
--- NOTE | 2016-11-09 07:14 | ECGEPIP ---
Stationary ECG Study [place] - ED Test Date: 2016-11-07 Pat Name: KIARA ROLLINS Department: Room: [place] [address] Gender: M Management Technician: sarah : 1935 Requested By: DORIE Jiménez Order Number: [id number] Reading MD: Adriana Maynard Measurements Intervals [place] Rate: 63 P: 13 WA: 133 QRS: -9 QRSD: 134 T: -19 QT: 480 QTc: 494 Interpretive Statements SINUS RHYTHM RIGHT BUNDLE BRANCH BLOCK SIMILAR 09/09/16 Electronically Signed On 11-09-2016 7:13:46 EST by Adriana Maynard
[2016-11-09] MEDS: metroNIDAZOLE 500 MG in APPROPRIATE DILUENT 1 EA IV SCH ×3 (07:56→21:45)
[2016-11-09] MEDS: amLODIPine 10 MG TAB PO SCH (09:00)
[2016-11-09] MEDS: MEROPENEM INJ 1 GM in D5W MINI-BAG PLUS 100 ML IV SCH ×2 (10:02→19:50)
[2016-11-09] MEDS: SENOKOT S TAB PO SCH ×2 (10:03→22:12)
[2016-11-09] MEDS: ATENOLOL 50 MG TAB PO SCH (10:03)
[2016-11-09] MEDS: D5W 1,000 ML IV SCH ×2 (10:03→21:45)
[2016-11-09] MEDS: NYSTATIN 100,000 UNITS/GM TOPICAL PWD 15 GM TOP SCH ×2 (10:04→21:45)
[2016-11-09] MEDS: PANTOPRAZOLE 40MG INJ (PROTONIX) (C9113) IV SCH ×2 (10:04→21:45)
--- NOTE | 2016-11-09 11:40 | IPNPDOC ---
Date of Service/Time 11/09/16 Progress Note SUBJECTIVE: The patient is feeling better he has very little pain in the perirectal anal area he does not know if he is having any further episodes of diarrhea or blood in his stool he tells me that his breathing was main complaint when he presented to the hospital and this is actually feeling somewhat better today OBJECTIVE: PHYSICAL EXAMINATION: VITAL SIGNS: 90% on 3 L nasal cannula otherwise Please see below. GENERAL: Frail elderly man lying in bed and 60 angle with chronic jaw deformity he is resting peacefully in no acute distress HEENT: Pupils are round reactive to light he has dry mucous membranes elevation central venous pressure CARDIOVASCULAR: Is 1 S2 regular. RESPIRATORY: Scattered rales diminished breath sounds at the bases bilaterally. ABDOMINAL: Sounds are present PEG tube is in place EXTREMITIES: Clubbing cyanosis or edema, on examination the patient's rectum and appears to be external hemorrhoids which are mildly bleeding. LABORATORY DATA: Downtrending leukocytosis mild acute anemia hemoglobin 8.6 down from 10.1 yesterday, hypernatremia sodium 149 up from 146 yesterday, improved renal function decreased BUN and creatinine, persistent troponin anemia , downtrending BNP otherwise Please see below. MICROBIOLOGY: Blood cultures from the 12th her negative urine culture from the 11th is pending a flu swab from the 11th is negative as is a respiratory PCR panel, GI PCR panel from the 12th is positive for Escherichia coli and C. difficile occult stool for blood is positive otherwise Please see below. IMAGING: [CT chest revealed posterior right upper and superior right lower lobe infiltrative consolidative opacities consistent with pneumonia as well as severe T6 T12 and L2 compression deformities which may be chronic] DVT prophylaxis ordered?: [Sequentials and teds no pharmacological agents secondary to rectal bleeding] ASSESSMENT AND PLAN: This is a [81]-year-old male with healthcare associated pneumonia C. difficile colitis/Escherichia coli colitis with rectal bleeding. Problem #1 healthcare associated pneumonia the patient has hypoxia cough reportedly a fever at his correction associated with concerning findings on CT he is currently on broad-spectrum antibiotics we'll continue to follow his cultures and they're spectrum as appropriate there is also possibility of aspiration pneumonia given his history of aspiration and esophageal dysmotility is why he is PEG tube. I do not Feel that the patient is having any dyspnea related to congestive heart failure fact appears quite dry and dehydrated the patient did receive normal saline yesterday with D5 and his renal function is improving his BNP is downtrending with improvement in his renal function and actual administration of IV fluids Problem #2 C. difficile and Escherichia coli colitis: The patient was started on IV Flagyl. Have significant leukocytosis and acute kidney injury for moderate -to-severe C. difficile infection his Escherichia coli is likely self-limited. However she may be having his GI bleeding secondary to this we'll continue to monitor his stools and output and hopes that he begins to slow nightly he is on appropriate therapy. Patient is currently on a PPI IV twice a day, will continue to monitor his H&H is somewhat downtrending today and asked that she' ll transfuse him 2 units of PRBCs of leuko-reduced irradiated blood base of his previous history of a bone marrow transplant for multiple myeloma he continues to be nothing by mouth and we are holding his tube feeds Problem #3 hypernatremia: Secondary to dehydration the patient was improving with free water restriction he was switched to D5 normal saline acute kidney injury overextending switch him back to D5 and continue to monitor daily Problem #4 acute kidney injury likely prerenal azotemia given his very dry exam is elevated BUN at this time I will hold off any further normal saline as the patient received 2 units of PRBCs today we will continue with D5 ministration continue to monitor his improving renal function. Problem #5 hypothyroidism: Continue with Synthroid Problem #6 hypertension continue with atenolol and holding parameters Problem #7 dementia: The patient normally on sertraline mirtazapine and Namenda these were held as the patient was reportedly confused at times presentation at the present time he has not been confused is not diffuse yesterday either I suspect what we are able to resume feeding the patient we can restart these medications Problem #8 esophageal dysmotility: The patient cannot take in enough fluids by mouth in addition to his dysmotility and as such he had a PEG tube placed during his last hospitalization for the time being he is nothing by mouth and we are holding tube feeds and will restart nutrition as soon as possible Problem #9 osteoporosis of the jaw: Chronic stable Problem #10 chronic urinary retention: The patient has a chronic suprapubic catheter is having any signs or symptoms of urinary tract infection at this time Problem #11 troponin anemia: Likely related to renal disease he's not had this in the past however multiple subsequent checked thus far to his hospitalization they all remain stable Problem #12 history of multiple myeloma: Continue outpatient follow-up DISPOSITION: The patient's clinical status remains guarded at this time given his multitude of comorbidities and presentation. His is a DO NOT RESUSCITATE (DNR). VS, I&O, 24H, Fishbone VS, I&O, 24H, Fishbone Vital Signs Date Time Temp Pulse Resp B/P Pulse Ox O2 Delivery O2 Flow Rate FiO2 11/09/16 09:00 80 130/72 11/09/16 05:50 97.9 24 90 Nasal Cannula 3.0 I&O- Last 24 Hours up to 6 AM 11/09/16 05:59 Intake Total 1732 ml Output Total 1475 ml Balance 257 ml Laboratory Tests 2 11/08/16 11:47: Creatine Kinase MB 1.0, Creatine Kinase MB Relative Index 3.84, Total Creatine Kinase 26L, Troponin I 0.31H 11/08/16 15:43: Anion Gap 7L, Blood Urea Nitrogen 75H, Creatinine 1.85H, Sodium Level 146H, Potassium Level 3.9, Chloride Level 105, Carbon Dioxide Level 34H, Calcium Level 8.2L, Glomerular Filtration Rate 37.5 11/08/16 22:50: Vancomycin Level Trough 18.6 11/09/16 05:32: Troponin I 0.30H, Anion Gap 6L, Blood Urea Nitrogen 65H, Creatinine 1.64H, Sodium Level 149H, Potassium Level 3.6, Chloride Level 110H, Carbon Dioxide Level 33H, Calcium Level 8.0L, Glomerular Filtration Rate 43.1, B-Type Natriuretic Peptide 351H, White Blood Count 15.0H, Red Blood Count 2.91L, Hemoglobin 8.6L, Hematocrit 27.5L, Mean Corpuscular Volume 94.4, Mean Corpuscular Hemoglobin 29.5, Mean Corpuscular Hemoglobin Concent 31.2L, Red Cell Distribution Width 14.1, Platelet Count 294, Neutrophils (%) (Auto) 90.0H, Lymphocytes (%) (Auto) 6.7L, Monocytes (%) (Auto) 1.8, Eosinophils (%) (Auto) 0.9, Basophils (%) (Auto) 0.1, Neutrophils # (Auto) 13.5H, Lymphocytes # (Auto) 1.0L, Monocytes # (Auto) 0.3, Eosinophils # (Auto) 0.1, Basophils # (Auto) 0.0, Large Unclassified Cells # 0.1, Large Unclassified Cells % 0.5 Laboratory Tests 11/08/16 15:43 Calcium Level 8.2 L 11/09/16 05:32 Calcium Level 8.0 L, Red Blood Count 2.91 L, Mean Corpuscular Volume 94.4, Mean Corpuscular Hemoglobin 29.5, Mean Corpuscular Hemoglobin Concent 31.2 L, Red Cell Distribution Width 14.1, Neutrophils (%) (Auto) 90.0 H, Lymphocytes (%) ( Auto) 6.7 L, Monocytes (%) (Auto) 1.8, Eosinophils (%) (Auto) 0.9, Basophils (% ) (Auto) 0.1, Neutrophils # (Auto) 13.5 H, Lymphocytes # (Auto) 1.0 L, Monocytes # (Auto) 0.3, Eosinophils # (Auto) 0.1, Basophils # (Auto) 0.0 Microbiology 11/08/16 Blood Culture - Preliminary, Resulted No growth after 24 hours . All specim... 11/08/16 Blood Culture - Preliminary, Resulted No growth after 24 hours . All specim... 11/08/16 Stool Occult Blood (SKY) - Final, Complete 11/08/16 Gastrointestinal Tract Panel (PCR) - Final, Complete Enteroaggregative E.coli Clostridium Difficile A/B 11/08/16 MRSA Screen, Received Pending 11/08/16 Respiratory Virus Panel (PCR) (SKY) - Final, Complete 11/07/16 Influenza Virus Type A Antigen - Final, Complete 11/07/16 Influenza Virus Type B Antigen - Final, Complete 11/07/16 Urine Culture, Received Pending RASTA ARDON MD Nov 09, 2016 11:40
[2016-11-09 14:00] VITALS: BP 99/58
[2016-11-09] MEDS: VANCOMYCIN HCL 1,000 MG, VIAL MATE ADAPTER 1 EACH in D5W 250 ML IV SCH (17:55)
[2016-11-09 20:25] VITALS: BP 135/66
--- NOTE | 2016-11-10 02:21 | EDDOCDS ---
Nurse's Notes [facility] Name: Saúl Cormier Age: 81 yrs Sex: Male : 1935 Arrival Date: 11/07/2016 Time: 17:01 Bed Admit Hold Private MD: Milana Luevano E Diagnosis: Shortness of breath-Rule Out Congestive Heart Failure Presentation: 11/07 17:12 Presenting complaint: Patient states: SOB onset this am. congested cough. without pain. [facility] Adult Sepsis Screening: The patient does not have new or worsening altered mentation. Patient has a respiratory rate of greater than or equal to 22 (1 point). Systolic blood pressure is greater than 100. Patient has a qSOFA score of 1- Negative Sepsis Screen. Suicide/Homicide risk assessment- the patient denies having any suicidal and/or homicidal ideations and does not present with any other emotional, behavioral or mental health complaints. Status: retired. Transition of care: patient was received from. 17:12 Acuity: RACHEL Level 3 [facility] 17:12 Method Of Arrival: Ambulance [facility] Triage Assessment: 17:14 General: Appears debilitated male with congested cough. alert, but poor historian. resp jmk labored and demonstrates work of breathing. Feeding tube intact to mid abd. Martin patent with cloudy urine.. Pain: Denies pain. Respiratory: Onset: The symptoms/episode began/occurred this morning, Breath sounds are coarse bilaterally. in left posterior lower lobe and right posterior lower lobe. GI: Abdomen is flat, non- distended feeding tube noted to mid abd. Historical: - Allergies: PENICILLINS (Rash); - Home Meds: 1. mirtazapine 7.5 mg Oral tab once daily 2. Namenda XR 21 mg oral CSpX 1 cap once daily 3. Protonix 40 mg Oral TbEC 1 tab once daily 4. Atenolol 75 mg Oral once daily 5. Sertraline 150 mg daily 6. Norvasc 10 mg Oral tab 1 tab once daily 7. Senna Plus oral tab daily 8. Levothyroxine 334 mcg Oral once daily - PMHx: Hypercholesterolemia; Hypertension; Hypothyroidism; kidney failure; Multiple Myeloma; - PSHx: Unable to obtain; - Social history: Smoking status: Patient states former smoker of tobacco. No barriers to communication noted, The patient speaks fluent Spanish. - Family history: Not pertinent. - : The pt / caregiver states he / she is not on anticoagulants. Home medication list is obtained from the patient. - Exposure Risk Screening:: None identified. Screenin:32 Screening information is obtained from the patient. Fall risk: At risk due to prior [facility] history of falls. Assistance ADL's: Requires assistance with meal preparation, this assistance is provided by residence staff, bathing, assistance is provided by residence staff, dressing, assistance is provided by residence staff, toileting, assistance is provided by residence staff, ambulation, assistance is provided by residence staff, housework, assistance is provided by residence staff, medication administration, assistance is provided by residence staff. Abuse/DV Screen: The patient / caregiver reports he/she is: not in a situation that causes fear, pain or injury. Nutritional screening: No deficits noted. Advance Directives: Currently, there is no health care proxy. There is no active DNR order. There is no living will. There is no Power of Marine Superintendent. Advance directive information has not previously been placed in an [facility] medical record. home support is adequate. Assessment: 18:09 General: Appears appears debilitated. lips dry. resting with eyes closed resp regular jmk and is mouth breathing. does rouse to verbal stimuli. maintaining sat of 97% with 4 l NC.. 19:34 General: Appears in no apparent distress, comfortable, to be sleeping. Behavior is jp6 appropriate for age, cooperative. Pain: Denies pain. Neurological: No deficits noted. Level of Consciousness is obeys commands, Oriented to person. EENT: No deficits noted. Cardiovascular: Capillary refill < 3 seconds Heart tones S1 S2 present Rhythm is sinus rhythm No ectopy. Respiratory: Airway is patent Respiratory effort is even, unlabored, Breath sounds with rales inspiratory expiratory bilaterally. in right middle lobe, left lower lobe, right lower lobe, left posterior lower lobe, right posterior middle lobe and right posterior lower lobe Breath sounds with rhonchi. GI: Abdomen is flat, non- distended Bowel sounds present X 4 quads. : Martin in place Urine is cloudy. Derm: Skin is pink, warm & dry. Musculoskeletal: No deficits noted. 20:30 Reassessment: Critical care time stopped, patient has stabilized. Patient denies pain jp6 at this time. Neurological: Level of Consciousness is obeys commands, Oriented to person. Cardiovascular: Rhythm is sinus rhythm No ectopy. Respiratory: Breath sounds with rales Breath sounds with rhonchi inspiratory expiratory bilaterally. in right middle lobe, left lower lobe, right lower lobe, left posterior lower lobe, right posterior middle lobe and right posterior lower lobe. Derm: Skin is pink, warm & dry. 21:30 Reassessment: Patient appears in no apparent distress at this time. Patient denies pain jp6 at this time. General: Appears comfortable, to be sleeping. Behavior is cooperative. Neurological: Level of Consciousness is obeys commands. Cardiovascular: Rhythm is sinus rhythm No ectopy. Derm: Skin is pink, warm & dry. 22:34 Reassessment: Patient appears in no apparent distress at this time. Patient denies pain jp6 at this time. General: Behavior is appropriate for age, cooperative. Pain: Denies pain. Neurological: Level of Consciousness is obeys commands, Oriented to person. EENT: No deficits noted. Cardiovascular: Rhythm is sinus rhythm No ectopy. Respiratory: Airway is patent Respiratory effort is even, unlabored, Breath sounds with rhonchi inspiratory expiratory bilaterally. Derm: Skin is pink, warm & dry. 23:30 Reassessment: Patient appears in no apparent distress at this time. pt appears to be jp6 sleeping.Turned and repositioned.Martin catheter is patent and drng. Feeding is going at 30ml/hr.. 11/08 00:17 Reassessment: Patient appears in no apparent distress at this time. General: Appears to jp6 be sleeping. Neurological: No deficits noted. Cardiovascular: Rhythm is sinus rhythm No ectopy. Respiratory: Airway is patent Respiratory effort is even, unlabored. Derm: Skin is pink, warm & dry. Vital Signs: 11/07 17:17 BP 120 / 71; Pulse 66; Resp 20; Temp 97.8(TE); Pulse Ox 90% on R/A; Weight 89.81 kg; [facility] Height 6 ft. (182.88 cm); 19:01 BP 119 / 69 (auto/); jp6 19:02 Pulse 62 MON; Pulse Ox 96% ; jp6 19:16 BP 130 / 74 (auto/); jp6 19:17 Pulse 62 MON; jp6 19:23 Pulse 64 MON; Pulse Ox 97% ; jp6 19:31 BP 118 / 66 (auto/); jp6 19:32 Pulse 64 MON; Pulse Ox 97% ; jp6 19:44 Pulse 62 MON; Pulse Ox 97% ; jp6 19:46 BP 131 / 70 (auto/); jp6 20:01 BP 116 / 70 (auto/); jp6 20:02 Pulse 70 MON; Pulse Ox 98% ; jp6 20:16 BP 110 / 68 (auto/); jp6 20:16 Pulse 62 MON; Pulse Ox 99% ; jp6 20:31 BP 111 / 66 (auto/); jp6 20:32 Pulse 64 MON; jp6 20:46 BP 117 / 66 (auto/); jp6 20:47 Pulse 62 MON; jp6 21:01 BP 113 / 64 (auto/); jp6 21:02 Pulse 66 MON; jp6 21:16 BP 110 / 63 (auto/); jp6 21:19 Pulse 64 MON; Pulse Ox 98% ; jp6 21:46 BP 120 / 71 (auto/); jp6 21:46 Pulse 66 MON; Pulse Ox 96% ; jp6 22:01 BP 109 / 56 (auto/); jp6 22:02 Pulse 64 MON; Pulse Ox 96% ; jp6 22:16 BP 112 / 57 (auto/); jp6 22:16 Pulse 68 MON; Pulse Ox 98% ; jp6 22:31 BP 111 / 59 (auto/); jp6 22:32 Pulse 70 MON; jp6 22:46 BP 107 / 59 (auto/); jp6 22:47 Pulse 70 MON; jp6 22:57 Pulse 70 MON; Pulse Ox 96% ; jp6 23:01 BP 118 / 66 (auto/); jp6 23:02 Pulse 74 MON; Pulse Ox 97% ; jp6 23:11 Pulse 66 MON; Pulse Ox 96% ; jp6 23:16 BP 117 / 71 (auto/); jp6 23:31 BP 101 / 59 (auto/); jp6 23:32 Pulse 66 MON; jp6 23:46 BP 99 / 57 (auto/); jp6 23:47 Pulse 64 MON; jp6 11/08 00:01 BP 102 / 62 (auto/); jp6 00:02 Pulse 62 MON; jp6 00:16 BP 118 / 64 (auto/); jp6 00:16 Pulse 66 MON; jp6 11/07 17:17 Body Mass Index 26.85 (89.81 kg, 182.88 cm) [facility] Vitals: 11/07 17:17 Log In Time N/A - ambulance arrival. [facility] ED Course: 17:02 Patient visited by Carrie Shannon, Manager Business Operations. lbd 17:02 Milana Luevano is Private Physician. lbd 17:02 Patient moved to Waiting lbd 17:03 Patient moved to 5 lbd 17:06 Loki George MD is Attending Physician. br1 17:13 Triage Initiated jmk 17:32 full time paramedic on. Pulse ox on. jmk 17:32 Maintain field IV. Gauge & site: 18 lac. jmk 17:34 Patient visited by Loki George MD. br1 17:47 [facility] Payment Agreement was scanned into [employer] and attached to record. gjb 17:48 B-Type Natiuretic Peptide Sent. jmk 17:48 Basic Metabolic Profile Sent. jmk 17:48 CBC with Diff Sent. jmk 17:48 Cardiac Injury Profile Sent. jmk 17:48 Troponin Sent. jmk 17:50 Patient visited by Dina Segovia PCA. jlf 17:50 Patient visited by Dina Segovia PCA. jlf 17:50 EKG done. (by ED staff). Reviewed by Loki George MD. jlf 18:11 -Influenza A&B Rapid Antigen - Nose Sent. jmk 19:08 Bibi Montero,RN is Primary Nurse. jp6 19:08 Patient visited by Bibi Montero,RN. jp6 19:32 The patient / caregiver is instructed regarding the plan of care and ED course. jp6 19:32 O2 via nasal cannula \T\ 4L/min. jp6 19:46 Lourdes Rcih is Hospitalizing Provider. br1 20:02 Patient moved to Admit Hold cz 20:25 Chest, 1 View Returned. EDMS 21:44 Turned to right side. Cleaned of incontinence. Linen changed. arlen 21:45 Patient visited by Belinda Thomas PCA. arlen 22:32 No procedures done that require assistance. jp6 01 00:40 CT Chest without contrast Returned. EDMS 11:11 T-Sheet-- Draft Copy was scanned into [employer] and attached to record. gb 11:11 ECG/EKG was scanned into [employer] and attached to record. gb 11:11 Trend VS was scanned into [employer] and attached to record. gb Administered Medications: 11/07 20:00 Drug: Furosemide 40 mg [furosemide 10 mg/mL injection solution (4 mL)] Route: IVP; jp6 Site: left antecubital; Attachments: 11:11 Trend VS gb Order Results: Lab Order: B-Type Natiuretic Peptide; SPEC'M 11/07/16 17:23 Test: BRAIN NATRIURETIC PEPTIDE; Value: 1300; Range: <100; Abnormal: Above high normal; Units: PG/ML; Status: F Lab Order: Basic Metabolic Profile; SPEC'M 11/07/16 17:23 Test: GLUCOSE, FASTING; Value: 166; Range: 83-110; Abnormal: Above high normal; Units: MG/DL; Status: F Test: BLOOD UREA NITROGEN; Value: 73; Range: 7-18; Abnormal: Above high normal; Units: MG/DL; Status: F Test: CREATININE FOR GFR; Value: 1.83; Range: 0.70-1.30; Abnormal: Above high normal; Units: MG/DL; Status: F Test: GLOMERULAR FILTRATION RATE; Value: 38.0; Range: >35; Status: F Test: SODIUM LEVEL; Value: 155; Range: 136-145; Abnormal: Above high normal; Units: MEQ/L; Status: F Test: POTASSIUM SERUM; Value: 3.7; Range: 3.5-5.1; Units: MEQ/L; Status: F Test: CHLORIDE LEVEL; Value: 114; Range: 98-107; Abnormal: Above high normal; Units: MEQ/L; Status: F Test: CARBON DIOXIDE LEVEL; Value: 33; Range: 21-32; Abnormal: Above high normal; Units: MEQ/L; Status: F Test: ANION GAP; Value: 8; Range: 8-16; Units: MEQ/L; Status: F Test: CALCIUM LEVEL; Value: 8.6; Range: 8.8-10.2; Abnormal: Below low normal; Units: MG/DL; Status: F Test Note: ; Units are mL/min/1.73 m2 Chronic Kidney Disease Staging per NKF: Stage I & II GFR >=60 Normal to Mildly Decreased Stage III GFR 30-59 Moderately Decreased Stage IV GFR 15-29 Severely Decreased Stage V GFR <15 Very Little GFR Left ESRD GFR <15 on DRUG SAFETY PHYSICIAN Lab Order: CBC with Diff; SPEC'M 11/07/16 17:23 Test: WHITE BLOOD COUNT; Value: 14.9; Range: 4.0-10.0; Abnormal: Above high normal; Units: K/mm3; Status: F Test: RED BLOOD COUNT; Value: 3.52; Range: 4.30-6.10; Abnormal: Below low normal; Units: M/mm3; Status: F Test: HEMOGLOBIN; Value: 10.5; Range: 14.0-18.0; Abnormal: Below low normal; Units: g/dl; Status: F Test: HEMATOCRIT; Value: 32.7; Range: 42.0-52.0; Abnormal: Below low normal; Units: %; Status: F Test: MEAN CORPUSCULAR VOLUME; Value: 93.1; Range: 80.0-96.0; Units: fl; Status: F Test: MEAN CORPUSCULAR HEMOGLOBIN; Value: 29.7; Range: 27.0-33.0; Units: pg; Status: F Test: MEAN CORPUSCULAR HGB CONC; Value: 32.0; Range: 32.0-36.5; Units: g/dl; Status: F Test: RED CELL DISTRIBUTION WIDTH; Value: 14.0; Range: 11.5-14.5; Units: %; Status: F Test: PLATELET COUNT, AUTOMATED; Value: 297; Range: 150-450; Units: k/mm3; Status: F Test: NEUTROPHILS %; Value: 89.2; Range: 36.0-66.0; Abnormal: Above high normal; Units: %; Status: F Test: LYMPH %; Value: 7.4; Range: 24.0-44.0; Abnormal: Below low normal; Units: %; Status: F Test: MONO %; Value: 2.0; Range: 0.0-5.0; Units: %; Status: F Test: EOS %; Value: 0.4; Range: 0.0-3.0; Units: %; Status: F Test: BASO %; Value: 0.1; Range: 0.0-1.0; Units: %; Status: F Test: LARGE UNSTAINED CELL %; Value: 0.9; Range: 0.0-4.0; Units: %; Status: F Test: NEUTROPHILS #; Value: 13.3; Range: 1.8-7.7; Abnormal: Above high normal; Units: K/mm3; Status: F Test: LYMPH #; Value: 1.1; Range: 1.5-4.5; Abnormal: Below low normal; Units: K/mm3; Status: F Test: MONO #; Value: 0.3; Range: 0.0-0.8; Units: K/mm3; Status: F Test: EOS #; Value: 0.1; Range: 0.0-0.50; Units: K/mm3; Status: F Test: BASO #; Value: 0.0; Range: 0.0-0.2; Units: K/mm3; Status: F Test: LARGE UNSTAINED CELL #; Value: 0.1; Range: 0.0-0.4; Units: K/mm3; Status: F Lab Order: Cardiac Injury Profile; [facility]' 11/07/16 17:23 Test: CPK CREATINE PHOSPHOKINASE; Value: 36; Range: 39-308; Abnormal: Below low normal; Units: U/L; Status: F Test: CK-MB VALUE MASS; Value: 1.0; Range: 0.0-3.6; Units: NG/ML; Status: F Test: MB/CK RELATIVE INDEX; Value: 2.77; Range: < OR =4; Status: F Test Note: ; DIAGNOSIS CRITERIA MMB ng/ml Relative Index (RI) NON-AMI < or = 5 N/A GOODE ZONE > 5 < or = 4 AMI > 5 > 4 Lab Order: Troponin; SPEC'M 11/07/16 17:23 Test: TROPONIN I; Value: 0.32; Range: < 0.10; Abnormal: Above high normal; Units: NG/ML; Status: F Test Note: ; Troponin I Reference Interval for apiOmat LOCI: 99th Percentile= 0.00-0.045 ng/ml Risk Stratification: <= 0.10 ng/ml Decreased Risk for Adverse Clinical Events. 0.10-1.50 ng/ml Increased Risk for Adverse Clinical Events. Evaluation of additional criterion and/or repeat testing in 2-6 hours is suggested to rule out myocardial damage. >= 1.50 ng/ml Indicative of Myocardial Injury. Lab Order: -Influenza A&B Rapid Antigen - Nose; SPEC'M 11/07/16 18:08 Test: INFLUENZA A RAPID SCR by ICA; Value: INFLUENZA A RESULTS NEGATIVE; Status: F Test: INFLUENZA A RAPID SCR by ICA; Value: Comments:; Status: F Test: INFLUENZA B RAPID SCR by ICA; Value: INFLUENZA B RESULTS NEGATIVE; Status: F Test Note: ; The Influenza test is a direct rapid immunoassay for the qualitative detection of Influenza viral antigen. Cell culture (Viral Culture) testing should be considered to confirm NEGATIVE results and to assist in detecting other viruses that can provide similar clinical symptoms. Please contact the lab within 24 hours ([phone] if confirmatory testing is desired. Lab Order: CARDIAC MARKER PANEL; SPEC'M 11/07/16 21:21 Test: CPK CREATINE PHOSPHOKINASE; Value: 32; Range: 39-308; Abnormal: Below low normal; Units: U/L; Status: F Test: CK-MB VALUE MASS; Value: 1.0; Range: 0.0-3.6; Units: NG/ML; Status: F Test: MB/CK RELATIVE INDEX; Value: 3.12; Range: < OR =4; Status: F Test: TROPONIN I; Value: 0.35; Range: < 0.10; Abnormal: Above high normal; Units: NG/ML; Status: F Test Note: ; DIAGNOSIS CRITERIA MMB ng/ml Relative Index (RI) NON-AMI < or = 5 N/A GOODE ZONE > 5 < or = 4 AMI > 5 > 4 Lab Order: URINALYSIS; SPEC'M 11/07/16 22:04 Test: APPEARANCE, URINE; Value: HAZY; Range: CLEAR; Status: F Test: COLOR, URINE; Value: YELLOW; Range: YELLOW; Status: F Test: PH,URINE; Value: 5.0; Range: 5.0-9.0; Units: UNITS; Status: F Test: SPECIFIC GRAVITY URINE AUTO; Value: 1.010; Range: 1.002-1.035; Status: F Test: PROTEIN, URINE AUTO; Value: NEGATIVE; Range: NEGATIVE; Units: mg/dL; Status: F Test: GLUCOSE, URINE (UA) AUTO; Value: NEGATIVE; Range: NEGATIVE; Units: mg/dL; Status: F Test: KETONE, URINE AUTO; Value: NEGATIVE; Range: NEGATIVE; Units: mg/dL; Status: F Test: UROBILINOGEN, URINE AUTO; Value: 0.2; Range: 0.0-2.0; Units: mg/dL; Status: F Test: BILIRUBIN, URINE AUTO; Value: NEGATIVE; Range: NEGATIVE; Status: F Test: NITRITE, URINE AUTO; Value: POSITIVE; Range: NEGATIVE; Status: F Test: LEUKOCYTE ESTERASE, URINE AUTO; Value: 2+; Range: NEGATIVE; Abnormal: Above high normal; Status: F Test: BLOOD, URINE BLOOD; Value: 1+; Range: NEGATIVE; Abnormal: Above high normal; Status: F Test: WBC, URINE AUTO; Value: 12; Range: 0-3; Abnormal: Above high normal; Units: /HPF; Status: F Test: RBC, URINE AUTO; Value: 8; Range: 0-3; Abnormal: Above high normal; Units: /HPF; Status: F Test: BACTERIA, URINE AUTO; Value: 1+; Range: NEGATIVE; Abnormal: Above high normal; Status: F Test: SQUAMOUS EPITHELIAL CELL UR AU; Value: 0; Range: 0-6; Units: /HPF; Status: F Test: MUCUS, URINE; Value: SMALL; Range: NEGATIVE; Status: F Test: HYALINE CAST, URINE AUTO; Value: 17; Range: 0-1; Units: /LPF; Status: F Test: AMORPHOUS SEDIMENT; Value: SMALL; Range: NEGATIVE; Abnormal: Above high normal; Status: F Radiology Order: Chest, 1 View Test: Chest, 1 View REASON FOR EXAMINATION: Shortness of Breath; AP portable chest: 11/07/2016:; ; Comparison: 11/04/2016, 09/24/2016.; ; Clinical history dyspnea.; ; Findings. Lungs are quite hypoinflated, even more so than the previous studies.; Elevation of the right diaphragm compared to the left is seen. There is basilar; atelectatic change along the right diaphragm. The heart size is difficult to; evaluate it appears grossly unchanged from previous study and I suspect some; cardiomegaly. The aorta is tortuous. The airway is intact. There are right; upper quadrant clips from prior cholecystectomy. Degenerative changes are seen; in the spine and shoulders.; ; Impression:; ; 1. Cardiomegaly without demetrius edema.; ; 2. Low lung volumes with some atelectatic changes along the elevated right; diaphragm. No definite effusion, visible infiltrate or other acute finding.; Very limited portable semi-erect chest.; ; ; ; ; Signed by; Hieu Nolen MD 11/07/2016 08:07 P; Radiology Order: CT Chest without contrast Test: CT Chest without contrast REASON FOR EXAMINATION: evaluate for pneumonia; ; CLINICAL STATEMENT: Rule out pneumonia; TECHNIQUE: CT of the chest was performed without intravenous contrast by obtaining contiguous axial s; lices from level of the thyroid gland to level of the kidneys. Post imaging 3-D technique processing; was utilized and multiplanar reformats were obtained in coronal and sagittal projections.; COMPARISON: CT chest 11.06.15; FINDINGS:; Lower neck: Visualized thyroid gland unremarkable. No mass or suspicious cystic lesion.; Lungs / airways / pleura: There are bilateral pulmonary opacities appearing more subsegmental atelect; asis in the lower lobes toward the bases, whereas more infiltrating consolidative-like opacities in t; he posterior right upper and superior right lower lobes. Central and visualized peripheral airways ar; e patent.; Mediastinum: No mass or suspicious cystic lesion. Heart normal in size with mitral valve prosthesis a; nd coronary no pericardial effusion. Thoracic aorta and pulmonary trunk normal in caliber.; Lymph nodes: No enlarged adenopathy.; Upper abdomen: Status post cholecystectomy.; Osseous structures/Soft tissues/thoracic wall: Thoracic arthrosis with severe T6, T12 and L2 (with gaspar; rrounding area) compression deformities with sclerotic changes. Multilevel moderate degenerative felix; ges of the cervical and thoracic spine with disc space narrowing. No soft tissue abnormality or herni; a.; Line/devices: None.; IMPRESSION:; 1. Posterior right upper and superior right lower lobe infiltrate and consolidative opacities would b; e consistent with clinical suspicion of pneumonia.; 2. There are severe T6, T12 and L2 compression deformities which may be chronic although in the setti; ng of recent trauma or tenderness MRI thoracic spine can be obtained for better evaluation for acute; fracture.; ; Outcome: 11/07 19:46 Decision to Hospitalize by Provider. br1 01/12 00:36 Discharge Assessment: Patient confused, Oriented to person, Patient unable to repeat 3 jp6 named objects, Patient able to independently bathe himself/herself with little or no assistance, to independently dress himself/herself with little or no assistance, to independently attend to toileting needs with little or no assistance, patient administered narcotics - no. The following High Risk Discharge criteria are identified: None. Admitted to Med/Surg accompanied by tech, via stretcher, with oxygen, with chart. Condition: unchanged. CT Study completed. Admission hand-off: Report Faxed Fax receipt verified by 4 juanito. Property :Personal belongings accompany Pt. 01:20 Patient left the ED. cz Signatures: Dispatcher [employer] EDMS Carrie Shannon, Manager Business Operations Unit lbd Julien Mccrary,RN RN Hema Bello, PANKAJ RN [place], Reg Reg Loki Pena MD MD br1 Belinda Thomas, UMBRELLA TIPPER HAND UMBRELLA TIPPER HAND Dina Jimenez, UMBRELLA TIPPER HAND UMBRELLA TIPPER HAND Smitha Granados Jessica,RN RN jp6 Chart Complete STEPHANIE
--- NOTE | 2016-11-10 02:21 | EDDOCDS ---
Physician Documentation [facility] Name: Saúl Cormier Age: 81 yrs Sex: Male : 1935 Arrival Date: 11/07/2016 Time: 17:01 Bed Admit Hold Private MD: Milana Luevano E Disposition: 11/07/16 19:46 Hospitalization ordered by Lourdes Rich for Inpatient Admission. Preliminary diagnosis is Shortness of breath - Rule Out Congestive Heart Failure. - Bed requested for 4 [place]. - Status is Inpatient Admission. cz - Condition is Stable. - Problem is new. - Symptoms are unchanged. Historical: - Allergies: PENICILLINS (Rash); - Home Meds: 1. mirtazapine 7.5 mg Oral tab once daily 2. Namenda XR 21 mg oral CSpX 1 cap once daily 3. Protonix 40 mg Oral TbEC 1 tab once daily 4. Atenolol 75 mg Oral once daily 5. Sertraline 150 mg daily 6. Norvasc 10 mg Oral tab 1 tab once daily 7. Senna Plus oral tab daily 8. Levothyroxine 334 mcg Oral once daily - PMHx: Hypercholesterolemia; Hypertension; Hypothyroidism; kidney failure; Multiple Myeloma; - PSHx: Unable to obtain; - Social history: Smoking status: Patient states former smoker of tobacco. No barriers to communication noted, The patient speaks fluent Israeli. - Family history: Not pertinent. - : The pt / caregiver states he / she is not on anticoagulants. Home medication list is obtained from the patient. - Exposure Risk Screening:: None identified. Vital Signs: 11/07 17:17 BP 120 / 71; Pulse 66; Resp 20; Temp 97.8(TE); Pulse Ox 90% on R/A; Weight 89.81 kg / jmk 198 lbs; Height 6 ft. (182.88 cm); 19:01 BP 119 / 69 (auto/); jp6 19:02 Pulse 62 MON; Pulse Ox 96% ; jp6 19:16 BP 130 / 74 (auto/); jp6 19:17 Pulse 62 MON; jp6 19:23 Pulse 64 MON; Pulse Ox 97% ; jp6 19:31 BP 118 / 66 (auto/); jp6 19:32 Pulse 64 MON; Pulse Ox 97% ; jp6 19:44 Pulse 62 MON; Pulse Ox 97% ; jp6 19:46 BP 131 / 70 (auto/); jp6 20:01 BP 116 / 70 (auto/); jp6 20:02 Pulse 70 MON; Pulse Ox 98% ; jp6 20:16 BP 110 / 68 (auto/); jp6 20:16 Pulse 62 MON; Pulse Ox 99% ; jp6 20:31 BP 111 / 66 (auto/); jp6 20:32 Pulse 64 MON; jp6 20:46 BP 117 / 66 (auto/); jp6 20:47 Pulse 62 MON; jp6 21:01 BP 113 / 64 (auto/); jp6 21:02 Pulse 66 MON; jp6 21:16 BP 110 / 63 (auto/); jp6 21:19 Pulse 64 MON; Pulse Ox 98% ; jp6 21:46 BP 120 / 71 (auto/); jp6 21:46 Pulse 66 MON; Pulse Ox 96% ; jp6 22:01 BP 109 / 56 (auto/); jp6 22:02 Pulse 64 MON; Pulse Ox 96% ; jp6 22:16 BP 112 / 57 (auto/); jp6 22:16 Pulse 68 MON; Pulse Ox 98% ; jp6 22:31 BP 111 / 59 (auto/); jp6 22:32 Pulse 70 MON; jp6 22:46 BP 107 / 59 (auto/); jp6 22:47 Pulse 70 MON; jp6 22:57 Pulse 70 MON; Pulse Ox 96% ; jp6 23:01 BP 118 / 66 (auto/); jp6 23:02 Pulse 74 MON; Pulse Ox 97% ; jp6 23:11 Pulse 66 MON; Pulse Ox 96% ; jp6 23:16 BP 117 / 71 (auto/); jp6 23:31 BP 101 / 59 (auto/); jp6 23:32 Pulse 66 MON; jp6 23:46 BP 99 / 57 (auto/); jp6 23:47 Pulse 64 MON; jp6 11/08 00:01 BP 102 / 62 (auto/); jp6 00:02 Pulse 62 MON; jp6 00:16 BP 118 / 64 (auto/); jp6 00:16 Pulse 66 MON; jp6 11/07 17:17 Body Mass Index 26.85 (89.81 kg, 182.88 cm) nat MDM: 11/07 17:40 Financial registration complete. gjb 17:44 Gasket Supervisor/Pulse Ox/q 30 min VS ordered. br1 17:44 IV Saline Lock ordered. br1 17:44 Rhythm Strip to chart ordered. br1 17:44 Undress patient appropriately for examination ordered. br1 17:45 B-Type Natiuretic Peptide Ordered. EDMS 17:45 Basic Metabolic Profile Ordered. EDMS 17:45 CBC with Diff Ordered. EDMS 17:46 Cardiac Injury Profile Ordered. EDMS 17:46 Troponin Ordered. EDMS 17:46 -Influenza A&B Rapid Antigen - Nose Ordered. EDMS 17:46 ECG WITH READING ER PHYS+CARDIAG ordered. EDMS 17:47 [place] Payment Agreement was scanned into [employer] and attached to record. gjb 18:16 Chest, 1 View Ordered. EDMS 19:30 BED REQUEST+ADM ordered. EDMS 19:32 B-Type Natiuretic Peptide Reviewed. br1 19:32 Basic Metabolic Profile Reviewed. br1 19:32 CBC with Diff Reviewed. br1 19:32 Cardiac Injury Profile Reviewed. br1 19:32 Troponin Reviewed. br1 19:32 -Influenza A&B Rapid Antigen - Nose Reviewed. br1 19:41 Furosemide 40 mg IVP once ordered. br1 21:07 CARDIAC MARKER PANEL Ordered. EDMS 21:07 CARDIAC MARKER PANEL Ordered. EDMS 21:08 Admission / Observation Status ordered. EDMS 21:08 NPO DIET ordered. EDMS 21:11 CBC WITH DIFFERENTIAL Ordered. EDMS 21:11 BASIC METABOLIC PROFILE Ordered. EDMS 21:19 URINALYSIS Ordered. EDMS 21:19 URINE CULTURE Ordered. EDMS 21:29 CT Chest without contrast Ordered. EDMS 21:34 CARDIAC MARKER PANEL Ordered. EDMS 0112 11:11 T-Sheet-- Draft Copy was scanned into [employer] and attached to record. gb 11:11 ECG/EKG was scanned into [employer] and attached to record. gb 11:11 Trend VS was scanned into [employer] and attached to record. gb Administered Medications: 11/07 20:00 Drug: Furosemide 40 mg [furosemide 10 mg/mL injection solution (4 mL)] Route: IVP; jp6 Site: left antecubital; Signatures: Dispatcher [employer] EDMS Julien MccraryRN RN Hema Bello RN RN [place], Reg Reg gb Verna LewisTiffRizwana, Underwater Roboticist Unit ml3 Loki George MD MD br1 Smitha Wilkinson gjb Bibi Montero RN jp6 The chart was reviewed and I authenticate all verbal orders and agree with the evaluation and treatment provided.Corrections: (The following items were deleted from the chart) 18:38 17:46 Chest, 2 view (PA\E\Lat)+XR ordered. EDMS EDMS 21:18 21:11 ARTERIAL BLOOD GAS ordered. EDMS EDMS 21:34 21:07 CARDIAC MARKER PANEL ordered. EDMS EDMS Attachments: 17:47 [place] gjb 11/08 11:11 T-Sheet-- Draft Copy gb 11:11 ECG/EKG Chart Complete MTDD
--- NOTE | 2016-11-10 02:21 | EDDOCDS ---
Physician Documentation [facility] Name: Saúl Cormier Age: 81 yrs Sex: Male : 1935 Arrival Date: 11/07/2016 Time: 17:01 Bed Admit Hold Private MD: Milana Luevano E Disposition: 11/07/16 19:46 Hospitalization ordered by Lourdes Rich for Inpatient Admission. Preliminary diagnosis is Shortness of breath - Rule Out Congestive Heart Failure. - Bed requested for 4 [place]. - Status is Inpatient Admission. cz - Condition is Stable. - Problem is new. - Symptoms are unchanged. Historical: - Allergies: PENICILLINS (Rash); - Home Meds: 1. mirtazapine 7.5 mg Oral tab once daily 2. Namenda XR 21 mg oral CSpX 1 cap once daily 3. Protonix 40 mg Oral TbEC 1 tab once daily 4. Atenolol 75 mg Oral once daily 5. Sertraline 150 mg daily 6. Norvasc 10 mg Oral tab 1 tab once daily 7. Senna Plus oral tab daily 8. Levothyroxine 334 mcg Oral once daily - PMHx: Hypercholesterolemia; Hypertension; Hypothyroidism; kidney failure; Multiple Myeloma; - PSHx: Unable to obtain; - Social history: Smoking status: Patient states former smoker of tobacco. No barriers to communication noted, The patient speaks fluent Iraqi. - Family history: Not pertinent. - : The pt / caregiver states he / she is not on anticoagulants. Home medication list is obtained from the patient. - Exposure Risk Screening:: None identified. Vital Signs: 11/07 17:17 BP 120 / 71; Pulse 66; Resp 20; Temp 97.8(TE); Pulse Ox 90% on R/A; Weight 89.81 kg / jmk 198 lbs; Height 6 ft. (182.88 cm); 19:01 BP 119 / 69 (auto/); jp6 19:02 Pulse 62 MON; Pulse Ox 96% ; jp6 19:16 BP 130 / 74 (auto/); jp6 19:17 Pulse 62 MON; jp6 19:23 Pulse 64 MON; Pulse Ox 97% ; jp6 19:31 BP 118 / 66 (auto/); jp6 19:32 Pulse 64 MON; Pulse Ox 97% ; jp6 19:44 Pulse 62 MON; Pulse Ox 97% ; jp6 19:46 BP 131 / 70 (auto/); jp6 20:01 BP 116 / 70 (auto/); jp6 20:02 Pulse 70 MON; Pulse Ox 98% ; jp6 20:16 BP 110 / 68 (auto/); jp6 20:16 Pulse 62 MON; Pulse Ox 99% ; jp6 20:31 BP 111 / 66 (auto/); jp6 20:32 Pulse 64 MON; jp6 20:46 BP 117 / 66 (auto/); jp6 20:47 Pulse 62 MON; jp6 21:01 BP 113 / 64 (auto/); jp6 21:02 Pulse 66 MON; jp6 21:16 BP 110 / 63 (auto/); jp6 21:19 Pulse 64 MON; Pulse Ox 98% ; jp6 21:46 BP 120 / 71 (auto/); jp6 21:46 Pulse 66 MON; Pulse Ox 96% ; jp6 22:01 BP 109 / 56 (auto/); jp6 22:02 Pulse 64 MON; Pulse Ox 96% ; jp6 22:16 BP 112 / 57 (auto/); jp6 22:16 Pulse 68 MON; Pulse Ox 98% ; jp6 22:31 BP 111 / 59 (auto/); jp6 22:32 Pulse 70 MON; jp6 22:46 BP 107 / 59 (auto/); jp6 22:47 Pulse 70 MON; jp6 22:57 Pulse 70 MON; Pulse Ox 96% ; jp6 23:01 BP 118 / 66 (auto/); jp6 23:02 Pulse 74 MON; Pulse Ox 97% ; jp6 23:11 Pulse 66 MON; Pulse Ox 96% ; jp6 23:16 BP 117 / 71 (auto/); jp6 23:31 BP 101 / 59 (auto/); jp6 23:32 Pulse 66 MON; jp6 23:46 BP 99 / 57 (auto/); jp6 23:47 Pulse 64 MON; jp6 11/08 00:01 BP 102 / 62 (auto/); jp6 00:02 Pulse 62 MON; jp6 00:16 BP 118 / 64 (auto/); jp6 00:16 Pulse 66 MON; jp6 11/07 17:17 Body Mass Index 26.85 (89.81 kg, 182.88 cm) nat MDM: 11/07 17:40 Financial registration complete. gjb 17:44 Nozzleman/Pulse Ox/q 30 min VS ordered. br1 17:44 IV Saline Lock ordered. br1 17:44 Rhythm Strip to chart ordered. br1 17:44 Undress patient appropriately for examination ordered. br1 17:45 B-Type Natiuretic Peptide Ordered. EDMS 17:45 Basic Metabolic Profile Ordered. EDMS 17:45 CBC with Diff Ordered. EDMS 17:46 Cardiac Injury Profile Ordered. EDMS 17:46 Troponin Ordered. EDMS 17:46 -Influenza A&B Rapid Antigen - Nose Ordered. EDMS 17:46 ECG WITH READING ER PHYS+CARDIAG ordered. EDMS 17:47 [facility] Payment Agreement was scanned into [employer] and attached to record. gjb 18:16 Chest, 1 View Ordered. EDMS 19:30 BED REQUEST+ADM ordered. EDMS 19:32 B-Type Natiuretic Peptide Reviewed. br1 19:32 Basic Metabolic Profile Reviewed. br1 19:32 CBC with Diff Reviewed. br1 19:32 Cardiac Injury Profile Reviewed. br1 19:32 Troponin Reviewed. br1 19:32 -Influenza A&B Rapid Antigen - Nose Reviewed. br1 19:41 Furosemide 40 mg IVP once ordered. br1 21:07 CARDIAC MARKER PANEL Ordered. EDMS 21:07 CARDIAC MARKER PANEL Ordered. EDMS 21:08 Admission / Observation Status ordered. EDMS 21:08 NPO DIET ordered. EDMS 21:11 CBC WITH DIFFERENTIAL Ordered. EDMS 21:11 BASIC METABOLIC PROFILE Ordered. EDMS 21:19 URINALYSIS Ordered. EDMS 21:19 URINE CULTURE Ordered. EDMS 21:29 CT Chest without contrast Ordered. EDMS 21:34 CARDIAC MARKER PANEL Ordered. EDMS 0112 11:11 T-Sheet-- Draft Copy was scanned into [employer] and attached to record. gb 11:11 ECG/EKG was scanned into [employer] and attached to record. gb 11:11 Trend VS was scanned into [employer] and attached to record. gb Administered Medications: 11/07 20:00 Drug: Furosemide 40 mg [furosemide 10 mg/mL injection solution (4 mL)] Route: IVP; jp6 Site: left antecubital; Signatures: Dispatcher [employer] EDMS Julien MccraryRN RN Hema Bello RN RN [place], Reg Reg gb Verna LewisTiffRizwana, Family Specialist Unit ml3 Loki George MD MD br1 Smitha Wilkinson gjb Bibi Montero RN jp6 The chart was reviewed and I authenticate all verbal orders and agree with the evaluation and treatment provided.Corrections: (The following items were deleted from the chart) 18:38 17:46 Chest, 2 view (PA\E\Lat)+XR ordered. EDMS EDMS 21:18 21:11 ARTERIAL BLOOD GAS ordered. EDMS EDMS 21:34 21:07 CARDIAC MARKER PANEL ordered. EDMS EDMS Attachments: 17:47 [facility] [place] Payment Agreement gjb 11/08 11:11 T-Sheet-- Draft Copy gb 11:11 ECG/EKG Chart Complete MTDD
[2016-11-10] MEDS: metroNIDAZOLE 500 MG in APPROPRIATE DILUENT 1 EA IV SCH ×3 (05:51→21:11)
[2016-11-10] MEDS: LEVOTHYROXINE 0.112 MG TAB (112 MCG) PO SCH (05:51)
[2016-11-10 05:55] VITALS: BP 144/72
[2016-11-10 06:49] LABS: BASO % 0.1 % (0.0-1.0); EOS # 0.3 K/mm3 (0.0-0.50); EOS % 2.4 % (0.0-3.0); LARGE UNSTAINED CELL # 0.1 K/mm3 (0.0-0.4); LARGE UNSTAINED CELL % 0.7 % (0.0-4.0); LYMPH # 0.7 K/mm3 (1.5-4.5); LYMPH % 5.6 % (24.0-44.0); MEAN CORPUSCULAR HEMOGLOBIN 29.1 pg (27.0-33.0); MEAN CORPUSCULAR HGB CONC 32.3 g/dl (32.0-36.5); MEAN CORPUSCULAR VOLUME 90.1 fl (80.0-96.0); MONO # 0.2 K/mm3 (0.0-0.8); MONO % 1.6 % (0.0-5.0); NEUTROPHILS # 10.9 K/mm3 (1.8-7.7); NEUTROPHILS % 89.6 % (36.0-66.0); PLATELET COUNT, AUTOMATED 224 k/mm3 (150-450); RED CELL DISTRIBUTION WIDTH 14.9 % (11.5-14.5); WHITE BLOOD COUNT 12.1 K/mm3 (4.0-10.0)
[2016-11-10 07:13] LABS: ANION GAP 9 MEQ/L (8-16); BLOOD UREA NITROGEN 42 MG/DL (7-18); CALCIUM LEVEL 8.1 MG/DL (8.8-10.2); CARBON DIOXIDE LEVEL 30 MEQ/L (21-32); CHLORIDE LEVEL 110 MEQ/L (98-107); CREATININE FOR GFR 1.17 MG/DL (0.70-1.30); GLOMERULAR FILTRATION RATE > 60.0 (>35); GLUCOSE, FASTING 133 MG/DL (83-110); POTASSIUM SERUM 3.6 MEQ/L (3.5-5.1); SODIUM LEVEL 149 MEQ/L (136-145)
[2016-11-10] MEDS: amLODIPine 10 MG TAB PO SCH (09:00)
[2016-11-10 09:30] VITALS: BP 130/60
[2016-11-10] MEDS: MEROPENEM INJ 1 GM in D5W MINI-BAG PLUS 100 ML IV SCH ×2 (10:05→20:21)
[2016-11-10] MEDS: SENOKOT S TAB PO SCH ×2 (11:54→21:11)
[2016-11-10] MEDS: ATENOLOL 50 MG TAB PO SCH (11:54)
[2016-11-10] MEDS: PANTOPRAZOLE 40MG INJ (PROTONIX) (C9113) IV SCH ×2 (11:55→21:11)
[2016-11-10] MEDS: NYSTATIN 100,000 UNITS/GM TOPICAL PWD 15 GM TOP SCH ×2 (11:56→21:12)
[2016-11-10 14:45] VITALS: BP 128/62
[2016-11-10] MEDS: D5W 1,000 ML IV SCH ×2 (15:35→20:46)
--- NOTE | 2016-11-10 15:57 | IPNPDOC ---
Date/Time Seen The patient was seen on 11/10/16 at 15:52. Progress Note SUBJECTIVE: The patient is feeling better he tells me that his breathing is easier that the pain in his bottom is easier he cannot recall if he is had any further bloody bowel movements. Otherwise denies chest pain shortness of breath and lightheadedness dizziness nausea or vomiting h OBJECTIVE: PHYSICAL EXAMINATION: VITAL SIGNS: 97% on 3 L nasal cannula otherwise Please see below. GENERAL: Very Frail elderly man lying in bed and 60 angle with chronic jaw deformity he is resting peacefully in no acute distress HEENT: Pupils are round reactive to light he has dry mucous membranes elevation central venous pressure CARDIOVASCULAR: s1 S2 regular. RESPIRATORY: Scattered rales diminished breath sounds at the bases bilaterally. ABDOMINAL: Sounds are present PEG tube is in place EXTREMITIES: No Clubbing cyanosis or edema LABORATORY DATA: Downtrending leukocytosis hemoglobin stable over last 24 hours , hypernatremia sodium 149 stable, improved renal function decreased BUN and creatinine, persistent troponin otherwise Please see below. MICROBIOLOGY: Blood cultures from the 12th her negative urine culture from the th is pending a flu swab from the th is negative as is a respiratory PCR panel, GI PCR panel from the 12th is positive for Escherichia coli and C. difficile occult stool for blood is positive otherwise Please see below. IMAGING: CT chest revealed posterior right upper and superior right lower lobe infiltrative consolidative opacities consistent with pneumonia as well as severe T6 T12 and L2 compression deformities which may be chronic DVT prophylaxis ordered?: Sequentials and teds no pharmacological agents secondary to rectal bleeding ASSESSMENT AND PLAN: This is a 81-year-old male with healthcare associated pneumonia C. difficile colitis/Escherichia coli colitis with rectal bleeding. Problem #1 healthcare associated pneumonia the patient has hypoxia cough reportedly a fever at his residential associated with concerning findings on CT he is currently on broad-spectrum antibiotics we'll continue to follow his cultures and narrow spectrum as appropriate there is also possibility of aspiration pneumonia given his history of aspiration and esophageal dysmotility which is why he is PEG tube. I do not Feel that the patient is having any dyspnea related to congestive heart failure fact appears quite dry and dehydrated the patient did receive normal saline yesterday with D5 and his renal function is improving Problem #2 C. difficile and Escherichia coli colitis: The patient was started on IV Flagyl. Have significant leukocytosis and acute kidney injury for moderate -to-severe C. difficile infection his Escherichia coli is likely self-limited. However she may be having his GI bleeding secondary to this we'll continue to monitor his stools and output and hopes that he begins to slow now that he is on appropriate therapy. Patient is currently on a PPI IV twice a day, will continue to monitor his H&H which has been stable since transfusion. If stable again tomorrow with no further evidence of bleeding would likely consider restarting tube feeds at a slower rate Problem #3 hypernatremia: Secondary to dehydration the patient was improving with free water is D5 will be titrated up today and continue to monitor daily Problem #4 acute kidney injury likely prerenal azotemia given his very dry exam is elevated BUN. Essentially resolved after normal saline and 2 units of PRBCs transfused Problem #5 hypothyroidism: Continue with Synthroid Problem #6 hypertension continue with atenolol and holding parameters Problem #7 dementia: The patient normally on sertraline mirtazapine and Namenda these were held as the patient was reportedly confused at times presentation at the present time he has not been confused is not diffuse yesterday either I suspect what we are able to resume feeding the patient we can restart these medications Problem #8 esophageal dysmotility: The patient cannot take in enough fluids by mouth in addition to his dysmotility and as such he had a PEG tube placed during his last hospitalization for the time being he is nothing by mouth and we are holding tube feeds and will restart nutrition as soon as possible Problem #9 osteoporosis of the jaw: Chronic stable Problem #10 chronic urinary retention: The patient has a chronic suprapubic catheter is having any signs or symptoms of urinary tract infection at this time Problem #11 troponin equivocal: Likely related to renal disease he's not had this in the past however multiple subsequent checked thus far to his hospitalization they all remain stable Problem #12 history of multiple myeloma: Continue outpatient follow-up DISPOSITION: The patient's clinical status remains guarded at this time given his multitude of comorbidities and presentation. His is a DO NOT RESUSCITATE (DNR). VS, I&O, 24H, Fishbone VS, I&O, 24H, Fishbone Vital Signs Date Time Temp Pulse Resp B/P Pulse Ox O2 Delivery O2 Flow Rate FiO2 11/10/16 14:45 93.3 56 18 128/62 97 Nasal Cannula 3.0 I&O- Last 24 Hours up to 6 AM 11/10/16 06:00 Intake Total 975 ml Output Total 1075 ml Balance -100 ml Laboratory Tests 2 11/10/16 05:58: Anion Gap 9, B-Type Natriuretic Peptide 544H, White Blood Count 12.1H, Red Blood Count 3.56L, Hemoglobin 10.4L, Hematocrit 32.1L, Mean Corpuscular Volume 90.1, Mean Corpuscular Hemoglobin 29.1, Mean Corpuscular Hemoglobin Concent 32.3 , Red Cell Distribution Width 14.9H, Platelet Count 224, Neutrophils (%) (Auto) 89.6H, Lymphocytes (%) (Auto) 5.6L, Monocytes (%) (Auto) 1.6, Eosinophils (%) ( Auto) 2.4, Basophils (%) (Auto) 0.1, Neutrophils # (Auto) 10.9H, Lymphocytes # ( Auto) 0.7L, Monocytes # (Auto) 0.2, Eosinophils # (Auto) 0.3, Basophils # (Auto ) 0.0, Blood Urea Nitrogen 42H, Creatinine 1.17, Sodium Level 149H, Potassium Level 3.6, Chloride Level 110H, Carbon Dioxide Level 30, Calcium Level 8.1L, Glomerular Filtration Rate > 60.0, Large Unclassified Cells # 0.1, Large Unclassified Cells % 0.7 Laboratory Tests 11/09/16 16:54 11/09/16 21:35 11/10/16 05:58 Calcium Level 8.1 L, Red Blood Count 3.56 L, Mean Corpuscular Volume 90.1, Mean Corpuscular Hemoglobin 29.1, Mean Corpuscular Hemoglobin Concent 32.3, Red Cell Distribution Width 14.9 H, Neutrophils (%) (Auto) 89.6 H, Lymphocytes (%) (Auto ) 5.6 L, Monocytes (%) (Auto) 1.6, Eosinophils (%) (Auto) 2.4, Basophils (%) ( Auto) 0.1, Neutrophils # (Auto) 10.9 H, Lymphocytes # (Auto) 0.7 L, Monocytes # (Auto) 0.2, Eosinophils # (Auto) 0.3, Basophils # (Auto) 0.0 Microbiology 11/08/16 Blood Culture - Preliminary, Resulted No Growth after 48 hours. All Specime... 11/08/16 Blood Culture - Preliminary, Resulted No Growth after 48 hours. All Specime... 11/08/16 Stool Occult Blood (SKY) - Final, Complete 11/08/16 Gastrointestinal Tract Panel (PCR) - Final, Complete Enteroaggregative E.coli Clostridium Difficile A/B 11/08/16 MRSA Screen - Final, Complete 11/08/16 Respiratory Virus Panel (PCR) (SKY) - Final, Complete 11/07/16 Influenza Virus Type A Antigen - Final, Complete 11/07/16 Influenza Virus Type B Antigen - Final, Complete 11/07/16 Urine Culture - Final, Complete Pseudomonas Aeruginosa RATSA ARDON MD Nov 10, 2016 15:57
[2016-11-10] MEDS: VANCOMYCIN HCL 1,000 MG, VIAL MATE ADAPTER 1 EACH in D5W 250 ML IV SCH (18:06)
[2016-11-10 20:50] VITALS: BP_SYST 11; BP_SYST 111; BP_DIAS 60
[2016-11-11] MEDS: metroNIDAZOLE 500 MG in APPROPRIATE DILUENT 1 EA IV SCH ×3 (05:44→22:47)
[2016-11-11] MEDS: LEVOTHYROXINE 0.112 MG TAB (112 MCG) PO SCH (05:44)
[2016-11-11] MEDS: D5W 1,000 ML IV SCH (05:44)
[2016-11-11 06:00] VITALS: BP 134/74
[2016-11-11 06:32] LABS: BASO % 0.2 % (0.0-1.0); EOS # 0.2 K/mm3 (0.0-0.50); EOS % 2.5 % (0.0-3.0); LARGE UNSTAINED CELL # 0.1 K/mm3 (0.0-0.4); LYMPH # 0.7 K/mm3 (1.5-4.5); LYMPH % 6.3 % (24.0-44.0); MEAN CORPUSCULAR HGB CONC 32.2 g/dl (32.0-36.5); MEAN CORPUSCULAR VOLUME 90.2 fl (80.0-96.0); MONO # 0.3 K/mm3 (0.0-0.8); MONO % 2.8 % (0.0-5.0); NEUTROPHILS # 8.9 K/mm3 (1.8-7.7); NEUTROPHILS % 87.2 % (36.0-66.0); PLATELET COUNT, AUTOMATED 199 k/mm3 (150-450); RED CELL DISTRIBUTION WIDTH 14.3 % (11.5-14.5); WHITE BLOOD COUNT 10.2 K/mm3 (4.0-10.0)
[2016-11-11 06:48] LABS: BLOOD UREA NITROGEN 30 MG/DL (7-18); CALCIUM LEVEL 7.7 MG/DL (8.8-10.2); CARBON DIOXIDE LEVEL 28 MEQ/L (21-32); CHLORIDE LEVEL 104 MEQ/L (98-107); CREATININE FOR GFR 1.07 MG/DL (0.70-1.30); GLOMERULAR FILTRATION RATE > 60.0 (>35); GLUCOSE, FASTING 134 MG/DL (83-110)
[2016-11-11 06:52] LABS: ANION GAP 9 MEQ/L (8-16); POTASSIUM SERUM 3.5 MEQ/L (3.5-5.1)
[2016-11-11 06:53] LABS: SODIUM LEVEL 141 MEQ/L (136-145)
--- NOTE | 2016-11-11 09:20 | REP ---
Clinical: Right upper extremity swelling. Technique: Real time aguirre scale and color Doppler evaluation using linear high frequency transducer. Findings: Ultrasound examination of the right upper extremity deep venous structures including jugular, subclavian, axillary, brachial, basilic, and cephalic veins demonstrate normal color flow and Doppler wave patterns without evidence for deep venous thrombosis. Impression: Negative examination. No evidence for deep venous thrombosis. Signed by Ross Taylor MD 11/11/2016 09:11 A
[2016-11-11] MEDS: amLODIPine 10 MG TAB PO SCH (09:55)
[2016-11-11] MEDS: SENOKOT S TAB PO SCH ×2 (09:55→21:00)
[2016-11-11] MEDS: ATENOLOL 50 MG TAB PO SCH (09:55)
[2016-11-11] MEDS: PANTOPRAZOLE 40MG INJ (PROTONIX) (C9113) IV SCH ×2 (09:56→21:15)
[2016-11-11] MEDS: MEROPENEM INJ 1 GM in D5W MINI-BAG PLUS 100 ML IV SCH ×2 (09:56→21:15)
[2016-11-11] MEDS: NYSTATIN 100,000 UNITS/GM TOPICAL PWD 15 GM TOP SCH ×2 (09:56→21:15)
--- NOTE | 2016-11-11 11:13 | IPNPDOC ---
Date/Time Seen The patient was seen on 11/11/16 at 11:05. Progress Note SUBJECTIVE: The patient is feeling better he denies any blood in the stool he tells me he is not having any pain in his bottom anymore, breathing is easier but he still has a persistent cough he denies chest pain nausea vomiting or any diarrhea OBJECTIVE: PHYSICAL EXAMINATION: VITAL SIGNS: 97% on 3 L nasal cannula otherwise Please see below. GENERAL: Very Frail elderly man lying in bed and 60 angle with chronic jaw deformity he is resting peacefully in no acute distress HEENT: Pupils are round reactive to light he has dry mucous membranes elevation central venous pressure CARDIOVASCULAR: s1 S2 regular. RESPIRATORY: Scattered rales diminished breath sounds at the bases bilaterally. ABDOMINAL: Sounds are present PEG tube is in place EXTREMITIES: No Clubbing cyanosis or edema LABORATORY DATA: Downtrending leukocytosis hemoglobin stable over last 48 hours , improved renal function decreased BUN and creatinine, persistent troponin otherwise Please see below. MICROBIOLOGY: Blood cultures from the 12th her negative urine culture from the th is pending a flu swab from the th is negative as is a respiratory PCR panel, GI PCR panel from the 12th is positive for Escherichia coli and C. difficile occult stool for blood is positive otherwise Please see below. IMAGING: CT chest revealed posterior right upper and superior right lower lobe infiltrative consolidative opacities consistent with pneumonia as well as severe T6 T12 and L2 compression deformities which may be chronic DVT prophylaxis ordered?: Sequentials and teds no pharmacological agents secondary to rectal bleeding ASSESSMENT AND PLAN: This is a 81-year-old male with healthcare associated pneumonia C. difficile colitis/Escherichia coli colitis with rectal bleeding. Problem #1 healthcare associated pneumonia the patient was hypoxic and had cough reportedly and fever at his fpc associated with concerning findings on CT he is currently on broad-spectrum antibiotics we'll continue to follow his cultures and narrow spectrum as appropriate there is also possibility of aspiration pneumonia given his history of aspiration and esophageal dysmotility which is why he is PEG tube. will continue with current Abx Problem #2 C. difficile and Escherichia coli colitis: The patient was started on IV Flagyl. He did have significant leukocytosis and acute kidney injury for [id number] C. difficile infection his Escherichia coli is likely self- limited. However she may be having his GI bleeding secondary to this we'll continue to monitor his stools and output and hopes that he begins to slow now that he is on appropriate therapy. Patient is currently on a PPI IV twice a day , will continue to monitor his H&H which has been stable since transfusion. Plan to restart tube feeds tomorrow Problem #3 hypernatremia: Resolved Problem #4 acute kidney injury likely prerenal azotemia given his very dry exam is elevated BUN. Essentially resolved after normal saline and 2 units of PRBCs transfused Problem #5 hypothyroidism: Continue with Synthroid Problem #6 hypertension continue with atenolol and holding parameters Problem #7 dementia: The patient normally on sertraline mirtazapine and Namenda these were held as the patient was reportedly confused at times presentation at the present time he has not been confused is not diffuse yesterday either I suspect what we are able to resume feeding the patient we can restart these medications Problem #8 esophageal dysmotility: The patient cannot take in enough fluids by mouth in addition to his dysmotility and as such he had a PEG tube placed during his last hospitalization for the time being he is nothing by mouth and we are holding tube feeds and will restart nutrition as soon as possible Problem #9 osteoporosis of the jaw: Chronic stable Problem #10 chronic urinary retention: The patient has a chronic suprapubic catheter is having any signs or symptoms of urinary tract infection at this time Problem #11 troponin equivocal: Likely related to renal disease he's not had this in the past however multiple subsequent checked thus far to his hospitalization they all remain stable Problem #12 history of multiple myeloma: Continue outpatient follow-up DISPOSITION: The patient's clinical status remains guarded at this time given his multitude of comorbidities frailty and presentation. His is a DO NOT RESUSCITATE (DNR). VS, I&O, 24H, Fishbone VS, I&O, 24H, Fishbone Vital Signs Date Time Temp Pulse Resp B/P Pulse Ox O2 Delivery O2 Flow Rate FiO2 11/11/16 09:55 60 124/62 11/11/16 09:55 Nasal Cannula 3.0 11/11/16 06:00 96.7 16 96 I&O- Last 24 Hours up to 6 AM 11/11/16 06:00 Intake Total 2050 ml Output Total 1050 ml Balance 1000 ml Laboratory Tests 2 11/11/16 06:05: Anion Gap 9, B-Type Natriuretic Peptide 459H, White Blood Count 10.2H, Red Blood Count 3.46L, Hemoglobin 10.1L, Hematocrit 31.2L, Mean Corpuscular Volume 90.2, Mean Corpuscular Hemoglobin 29.0, Mean Corpuscular Hemoglobin Concent 32.2 , Red Cell Distribution Width 14.3, Platelet Count 199, Neutrophils (%) (Auto) 87.2H, Lymphocytes (%) (Auto) 6.3L, Monocytes (%) (Auto) 2.8, Eosinophils (%) ( Auto) 2.5, Basophils (%) (Auto) 0.2, Neutrophils # (Auto) 8.9H, Lymphocytes # ( Auto) 0.7L, Monocytes # (Auto) 0.3, Eosinophils # (Auto) 0.2, Basophils # (Auto ) 0.0, Blood Urea Nitrogen 30H, Creatinine 1.07, Sodium Level 141#, Potassium Level 3.5, Chloride Level 104, Carbon Dioxide Level 28, Calcium Level 7.7L, Glomerular Filtration Rate > 60.0, Large Unclassified Cells # 0.1, Large Unclassified Cells % 1.0 Laboratory Tests 11/10/16 18:49 11/11/16 06:05 Calcium Level 7.7 L, Red Blood Count 3.46 L, Mean Corpuscular Volume 90.2, Mean Corpuscular Hemoglobin 29.0, Mean Corpuscular Hemoglobin Concent 32.2, Red Cell Distribution Width 14.3, Neutrophils (%) (Auto) 87.2 H, Lymphocytes (%) (Auto) 6.3 L, Monocytes (%) (Auto) 2.8, Eosinophils (%) (Auto) 2.5, Basophils (%) (Auto ) 0.2, Neutrophils # (Auto) 8.9 H, Lymphocytes # (Auto) 0.7 L, Monocytes # (Auto ) 0.3, Eosinophils # (Auto) 0.2, Basophils # (Auto) 0.0 Microbiology 11/08/16 Blood Culture - Preliminary, Resulted No Growth after 72 hours. All specime... 11/08/16 Blood Culture - Preliminary, Resulted No Growth after 72 hours. All specime... 11/08/16 Stool Occult Blood (SKY) - Final, Complete 11/08/16 Gastrointestinal Tract Panel (PCR) - Final, Complete Enteroaggregative E.coli Clostridium Difficile A/B 11/08/16 MRSA Screen - Final, Complete 11/08/16 Respiratory Virus Panel (PCR) (SKY) - Final, Complete 11/07/16 Influenza Virus Type A Antigen - Final, Complete 11/07/16 Influenza Virus Type B Antigen - Final, Complete 11/07/16 Urine Culture - Final, Complete Pseudomonas Aeruginosa RASTA ARDON MD Nov 11, 2016 11:12
[2016-11-11 14:00] VITALS: BP 110/62
[2016-11-11] MEDS: VANCOMYCIN HCL 1,000 MG, VIAL MATE ADAPTER 1 EACH in D5W 250 ML IV SCH (18:15)
[2016-11-11 22:00] VITALS: BP 128/60
[2016-11-12] MEDS: metroNIDAZOLE 500 MG in APPROPRIATE DILUENT 1 EA IV SCH ×2 (05:44→14:48)
[2016-11-12] MEDS: LEVOTHYROXINE 0.112 MG TAB (112 MCG) PO SCH (05:44)
[2016-11-12 06:00] VITALS: BP 155/85
[2016-11-12 06:07] LABS: BASO % 0.1 % (0.0-1.0); EOS # 0.2 K/mm3 (0.0-0.50); EOS % 1.9 % (0.0-3.0); LARGE UNSTAINED CELL # 0.1 K/mm3 (0.0-0.4); LYMPH # 0.6 K/mm3 (1.5-4.5); LYMPH % 5.6 % (24.0-44.0); MEAN CORPUSCULAR HEMOGLOBIN 29.4 pg (27.0-33.0); MEAN CORPUSCULAR HGB CONC 32.6 g/dl (32.0-36.5); MEAN CORPUSCULAR VOLUME 90.1 fl (80.0-96.0); MONO # 0.3 K/mm3 (0.0-0.8); MONO % 2.5 % (0.0-5.0); NEUTROPHILS # 10.1 K/mm3 (1.8-7.7); NEUTROPHILS % 88.9 % (36.0-66.0); PLATELET COUNT, AUTOMATED 205 k/mm3 (150-450); WHITE BLOOD COUNT 11.4 K/mm3 (4.0-10.0)
[2016-11-12 06:09] LABS: ANION GAP 7 MEQ/L (8-16); BLOOD UREA NITROGEN 25 MG/DL (7-18); CARBON DIOXIDE LEVEL 31 MEQ/L (21-32); CHLORIDE LEVEL 103 MEQ/L (98-107); CREATININE FOR GFR 1.14 MG/DL (0.70-1.30); GLOMERULAR FILTRATION RATE > 60.0 (>35); GLUCOSE, FASTING 128 MG/DL (83-110); POTASSIUM SERUM 3.5 MEQ/L (3.5-5.1); SODIUM LEVEL 141 MEQ/L (136-145)
[2016-11-12] MEDS: SENOKOT S TAB PO SCH ×2 (09:00→20:18)
[2016-11-12] MEDS: MEROPENEM INJ 1 GM in D5W MINI-BAG PLUS 100 ML IV SCH ×2 (10:12→20:18)
[2016-11-12] MEDS: NYSTATIN 100,000 UNITS/GM TOPICAL PWD 15 GM TOP SCH ×2 (10:13→20:19)
[2016-11-12] MEDS: ATENOLOL 50 MG TAB PO SCH (10:13)
[2016-11-12] MEDS: PANTOPRAZOLE 40MG INJ (PROTONIX) (C9113) IV SCH ×2 (10:13→20:18)
[2016-11-12] MEDS: amLODIPine 10 MG TAB PO SCH (10:13)
--- NOTE | 2016-11-12 14:45 | IPNPDOC ---
Date/Time Seen The patient was seen on 11/12/16 at 14:39. Progress Note SUBJECTIVE: The patient is feeling better he tells me that his breathing is improved he is tells me that he has not had any diarrhea at this time OBJECTIVE: PHYSICAL EXAMINATION: VITAL SIGNS: 90% on room air otherwise Please see below. GENERAL: Very Frail elderly man lying in bed and 60 angle with chronic jaw deformity he is resting peacefully in no acute distress HEENT: Pupils are round reactive to light he has dry mucous membranes elevation central venous pressure CARDIOVASCULAR: s1 S2 regular. RESPIRATORY: Scattered rales diminished breath sounds at the bases bilaterally. ABDOMINAL: Sounds are present PEG tube is in place EXTREMITIES: No Clubbing cyanosis or edema LABORATORY DATA: Mild leukocytosis hemoglobin stable over last 48 hour, Please see below. MICROBIOLOGY: Blood cultures from the 12th her negative urine culture from the th is pending a flu swab from the th is negative as is a respiratory PCR panel, GI PCR panel from the 12th is positive for Escherichia coli and C. difficile occult stool for blood is positive. The patient has urine culture positive for Pseudomonas from the th but this is likely chronic colonization otherwise Please see below. IMAGING: CT chest revealed posterior right upper and superior right lower lobe infiltrative consolidative opacities consistent with pneumonia as well as severe T6 T12 and L2 compression deformities which may be chronic DVT prophylaxis ordered?: Sequentials and teds no pharmacological agents secondary to rectal bleeding ASSESSMENT AND PLAN: This is a 81-year-old male with healthcare associated pneumonia C. difficile colitis/Escherichia coli colitis with rectal bleeding. Problem #1 healthcare associated pneumonia the patient was hypoxic had cough and fever at his half-way associated with concerning findings on CT. he is currently on broad-spectrum antibiotics which he'll likely be narrowed in the coming days there is also possibility of aspiration pneumonia given his history of aspiration and esophageal dysmotility which is why he is PEG tube. Will continue with current Abx. His hypoxia is essentially resolved Problem #2 C. difficile and Escherichia coli colitis: The patient was started on IV Flagyl. He did have significant leukocytosis and acute kidney injury for moderate C. difficile infection, his Escherichia coli is likely self-limited. GI bleeding secondary to this we'll continue to monitor his stools and output and hopes that he begins to slow now that he is on appropriate therapy. I did attempt to restart the patient on tube feeds however he did begin having diarrhea which was previously resolving and as such I will hold. Patient is currently on a PPI IV twice a day, will continue to monitor his H&H which has been stable since transfusion. Problem #3 hypernatremia: Resolved Problem #4 acute kidney injury likely prerenal azotemia given his very dry exam is elevated BUN. Essentially resolved after normal saline and 2 units of PRBCs transfused Problem #5 hypothyroidism: Continue with Synthroid Problem #6 hypertension continue with atenolol and holding parameters Problem #7 dementia: The patient normally on sertraline mirtazapine and Namenda these were held as the patient was reportedly confused at times presentation at the present time he has not been confused is not diffuse yesterday either I suspect what we are able to resume feeding the patient we can restart these medications Problem #8 esophageal dysmotility: The patient cannot take in enough fluids by mouth in addition to his dysmotility and as such he had a PEG tube placed during his last hospitalization for the time being he is nothing by mouth and we are holding tube feeds and will restart nutrition as soon as possible Problem #9 osteoporosis of the jaw: Chronic stable Problem #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 His is a DO NOT RESUSCITATE (DNR). VS, I&O, 24H, Fishbone VS, I&O, 24H, Fishbone Vital Signs Date Time Temp Pulse Resp B/P Pulse Ox O2 Delivery O2 Flow Rate FiO2 11/12/16 09:00 Nasal Cannula 1.0 11/12/16 06:00 96.7 71 21 155/85 90 I&O- Last 24 Hours up to 6 AM 11/12/16 06:00 Intake Total 1175 ml Output Total 1275 ml Balance -100 ml Laboratory Tests 2 11/11/16 16:54: Vancomycin Level Trough 19.5 11/12/16 05:25: Anion Gap 7L, White Blood Count 11.4H, Red Blood Count 3.82L, Hemoglobin 11.2L, Hematocrit 34.5L, Mean Corpuscular Volume 90.1, Mean Corpuscular Hemoglobin 29.4 , Mean Corpuscular Hemoglobin Concent 32.6, Red Cell Distribution Width 14.0, Platelet Count 205, Neutrophils (%) (Auto) 88.9H, Lymphocytes (%) (Auto) 5.6L, Monocytes (%) (Auto) 2.5, Eosinophils (%) (Auto) 1.9, Basophils (%) (Auto) 0.1, Neutrophils # (Auto) 10.1H, Lymphocytes # (Auto) 0.6L, Monocytes # (Auto) 0.3, Eosinophils # (Auto) 0.2, Basophils # (Auto) 0.0, Blood Urea Nitrogen 25H, Creatinine 1.14, Sodium Level 141, Potassium Level 3.5, Chloride Level 103, Carbon Dioxide Level 31, Calcium Level 8.0L, Glomerular Filtration Rate > 60.0, Large Unclassified Cells # 0.1, Large Unclassified Cells % 1.0 Laboratory Tests 11/12/16 05:25 Calcium Level 8.0 L, Red Blood Count 3.82 L, Mean Corpuscular Volume 90.1, Mean Corpuscular Hemoglobin 29.4, Mean Corpuscular Hemoglobin Concent 32.6, Red Cell Distribution Width 14.0, Neutrophils (%) (Auto) 88.9 H, Lymphocytes (%) (Auto) 5.6 L, Monocytes (%) (Auto) 2.5, Eosinophils (%) (Auto) 1.9, Basophils (%) (Auto ) 0.1, Neutrophils # (Auto) 10.1 H, Lymphocytes # (Auto) 0.6 L, Monocytes # ( Auto) 0.3, Eosinophils # (Auto) 0.2, Basophils # (Auto) 0.0 Microbiology 11/08/16 Blood Culture - Preliminary, Resulted No Growth after 72 hours. All specime... 11/08/16 Blood Culture - Preliminary, Resulted No Growth after 72 hours. All specime... 11/08/16 Stool Occult Blood (SKY) - Final, Complete 11/08/16 Gastrointestinal Tract Panel (PCR) - Final, Complete Enteroaggregative E.coli Clostridium Difficile A/B 1/12/17 MRSA Screen - Final, Complete 11/08/16 Respiratory Virus Panel (PCR) (SKY) - Final, Complete 11/07/16 Influenza Virus Type A Antigen - Final, Complete 11/07/16 Influenza Virus Type B Antigen - Final, Complete 11/07/16 Urine Culture - Final, Complete Pseudomonas Aeruginosa RASTA ARDON MD Nov 12, 2016 14:45
[2016-11-12] MEDS: FIDAXOMICIN 200 MG TAB (DIFICID) PO SCH (20:18)
[2016-11-12 22:00] VITALS: BP 131/72
[2016-11-13] MEDS: LEVOTHYROXINE 0.112 MG TAB (112 MCG) PO SCH (05:38)
[2016-11-13 06:00] VITALS: BP 125/67
[2016-11-13 06:45] LABS: BASO % 0.4 % (0.0-1.0); EOS # 0.3 K/mm3 (0.0-0.50); EOS % 3.1 % (0.0-3.0); LARGE UNSTAINED CELL # 0.2 K/mm3 (0.0-0.4); LARGE UNSTAINED CELL % 1.7 % (0.0-4.0); LYMPH # 0.7 K/mm3 (1.5-4.5); LYMPH % 8.4 % (24.0-44.0); MEAN CORPUSCULAR HGB CONC 32.3 g/dl (32.0-36.5); MONO # 0.3 K/mm3 (0.0-0.8); MONO % 3.2 % (0.0-5.0); NEUTROPHILS # 7.4 K/mm3 (1.8-7.7); NEUTROPHILS % 83.2 % (36.0-66.0); PLATELET COUNT, AUTOMATED 217 k/mm3 (150-450); RED CELL DISTRIBUTION WIDTH 14.1 % (11.5-14.5); WHITE BLOOD COUNT 8.8 K/mm3 (4.0-10.0)
[2016-11-13 06:55] LABS: ANION GAP 9 MEQ/L (8-16); BLOOD UREA NITROGEN 21 MG/DL (7-18); CALCIUM LEVEL 7.9 MG/DL (8.8-10.2); CARBON DIOXIDE LEVEL 29 MEQ/L (21-32); CHLORIDE LEVEL 104 MEQ/L (98-107); CREATININE FOR GFR 0.93 MG/DL (0.70-1.30); GLOMERULAR FILTRATION RATE > 60.0 (>35); GLUCOSE, FASTING 99 MG/DL (83-110); POTASSIUM SERUM 3.2 MEQ/L (3.5-5.1); SODIUM LEVEL 142 MEQ/L (136-145)
[2016-11-13] MEDS ORDERED: POTASSIUM CHLORIDE 10 MEQ SR TABLET PO ONE (09:00)
[2016-11-13] MEDS: NYSTATIN 100,000 UNITS/GM TOPICAL PWD 15 GM TOP SCH ×2 (09:00→20:00)
[2016-11-13] MEDS: SENOKOT S TAB PO SCH ×2 (09:47→20:01)
[2016-11-13] MEDS: amLODIPine 10 MG TAB PO SCH (09:48)
[2016-11-13] MEDS: MEROPENEM INJ 1 GM in D5W MINI-BAG PLUS 100 ML IV SCH ×2 (09:48→20:01)
[2016-11-13] MEDS: FIDAXOMICIN 200 MG TAB (DIFICID) PO SCH ×2 (09:48→20:01)
[2016-11-13] MEDS: ATENOLOL 50 MG TAB PO SCH (09:49)
[2016-11-13] MEDS: PANTOPRAZOLE 40MG INJ (PROTONIX) (C9113) IV SCH ×2 (09:49→20:01)
--- NOTE | 2016-11-13 12:24 | IPN ---
DATE OF SERVICE: 11/13/2016 This is an 81-year-old seen at bedside resting comfortably. He denies any complaint. No chest pain. No shortness of breath. No nausea or vomiting. OBJECTIVE: Temperature 96.0, pulse 66, respiratory rate 18, blood pressure 125/67, SpO2 is 93% on room air. GENERAL: The patient appears to be in no acute distress. He is alert and oriented, pleasant talk to. HEENT: Head is atraumatic, normocephalic. Eyes: Pupils equal, round, reactive to light and accommodation. Throat clear. LUNGS: Clear. HEART: Regular rate and rhythm. ABDOMEN: Soft. EXTREMITIES: No edema. No calf tenderness. LABORATORY DATA: White count 8.8, hemoglobin 10.8, platelets are 217,000. Sodium is 142, potassium 3.2, which we will supplement, chloride 104, bicarbonate 29, anion gap 9, BUN is 21, creatinine 0.93, glucose 99, magnesium 2.0. ASSESSMENT AND PLAN: 1. Healthcare-associated pneumonia with hypoxic respiratory failure, cough, fever. Currently on broad-spectrum antibiotics. Does have a history of aspiration, esophageal dysmotility. Continues with percutaneous endoscopic gastrostomy tube. His feedings have been held for the time being since he has had some loose stool. His hypoxia has resolved. Will continue antibiotics and de-escalating the next 24-48 hours. 2. Clostridium (C) difficile colitis, history of E. Colitis. He is currently on Dificid. We will continue to watch his output. We are holding tube feedings for the time being, but we will go ahead and do intravenous (IV) fluids to make sure he does not get dehydrated. 3. Prior gastrointestinal (GI) bleed. Will continue to monitor hemoglobin and hematocrit (H and H). He did receive a transfusion right after he was admitted. Continue on proton pump inhibitor (PPI) IV twice daily. Once he resumes his percutaneous endoscopic gastrostomy tube feedings will switch to proton pump inhibitor (PPI) per percutaneous endoscopic gastrostomy tube. 4. Hypernatremia, resolved. 5. Acute kidney injury, most likely prerenal. Will continue to follow his renal panel. 6. Hypothyroidism. Continue Synthroid. 7. Hypertension. Continue atenolol with hold parameters. 8. Dementia. Stable on sertraline, mirtazapine and Namenda. He does not appear to be suicidal. No audiovisual hallucinations. 9. Esophageal dysmotility. Again, has percutaneous endoscopic gastrostomy tube in place. Feedings are on hold. Will resume nutritional supplementation the next 24-48 hours once his stool has lessened. 10. Osteoporosis of the jaw, stable. 11. Chronic urinary retention. Chronic suprapubic catheter in place. He does not seem to have any signs or symptoms of urinary tract infection. He did have Pseudomonas on a previous culture, but this was felt to be related to chronic colonization. 12. Troponin elevation/equivocal, likely related to renal disease and no further elevation during hospitalization. 13. Prior history of multiple myeloma. Continue outpatient followup. If he requires any further blood transfusions, will need to be radiated blood cells. DISPOSITION: His clinical status remains guarded due to his multiple comorbidities. DO NOT RESUSCITATE/DO NOT INTUBATE. He did have some slight hypokalemia, which we supplemented today, and will see how he does over the next 24-48 hours.
[2016-11-13 14:00] VITALS: BP 123/66
[2016-11-13] MEDS: NS 1,000 ML IV SCH (15:04)
[2016-11-13 22:00] VITALS: BP 110/80
[2016-11-14] MEDS: NS 1,000 ML IV SCH (01:35)
[2016-11-14] MEDS: LEVOTHYROXINE 0.112 MG TAB (112 MCG) PO SCH (05:51)
[2016-11-14 06:00] VITALS: BP 132/70
[2016-11-14 06:19] LABS: ANION GAP 10 MEQ/L (8-16); BLOOD UREA NITROGEN 16 MG/DL (7-18); CALCIUM LEVEL 7.8 MG/DL (8.8-10.2); CARBON DIOXIDE LEVEL 27 MEQ/L (21-32); CHLORIDE LEVEL 108 MEQ/L (98-107); CREATININE FOR GFR 0.83 MG/DL (0.70-1.30); GLOMERULAR FILTRATION RATE > 60.0 (>35); GLUCOSE, FASTING 74 MG/DL (83-110); POTASSIUM SERUM 3.6 MEQ/L (3.5-5.1); SODIUM LEVEL 145 MEQ/L (136-145)
[2016-11-14 06:21] LABS: BASO # 0.1 K/mm3 (0.0-0.2); BASO % 0.8 % (0.0-1.0); EOS # 0.3 K/mm3 (0.0-0.50); EOS % 3.6 % (0.0-3.0); LARGE UNSTAINED CELL # 0.1 K/mm3 (0.0-0.4); LARGE UNSTAINED CELL % 1.4 % (0.0-4.0); LYMPH # 1.3 K/mm3 (1.5-4.5); MEAN CORPUSCULAR HEMOGLOBIN 28.3 pg (27.0-33.0); MEAN CORPUSCULAR HGB CONC 30.7 g/dl (32.0-36.5); MONO # 0.4 K/mm3 (0.0-0.8); MONO % 4.5 % (0.0-5.0); NEUTROPHILS % 76.8 % (36.0-66.0); PLATELET COUNT, AUTOMATED 251 k/mm3 (150-450); WHITE BLOOD COUNT 9.2 K/mm3 (4.0-10.0)
[2016-11-14] MEDS: SENOKOT S TAB PO SCH ×2 (07:22→20:30)
[2016-11-14] MEDS: amLODIPine 10 MG TAB PO SCH (10:03)
[2016-11-14] MEDS: FIDAXOMICIN 200 MG TAB (DIFICID) PO SCH ×2 (10:03→20:29)
[2016-11-14] MEDS: ATENOLOL 50 MG TAB PO SCH (10:04)
[2016-11-14] MEDS: NYSTATIN 100,000 UNITS/GM TOPICAL PWD 15 GM TOP SCH ×2 (10:04→20:30)
--- NOTE | 2016-11-14 10:49 | IPN ---
DATE: 11/14/2016 81-year-old gentleman seen at bedside resting comfortably. Denies any chest pain, shortness breath, abdominal pain, nausea or vomiting. Tried to restart his tube feedings today. His IV did infiltrate and having difficulty with access Will go ahead and get a PICC line started on him. OBJECTIVE: Temperature 96.4, pulse 70, respiratory rate is 20, blood pressure (BP) 132/70, and SpO2 is 92% on room air. General: The patient appears to be in no acute distress. He is alert, oriented, and pleasant talk to. HEENT: Unremarkable. Lungs: Clear. Heart: Regular rate and rhythm. Abdomen: Soft. He does have some slightly hyperactive bowel sounds, but no rebound tenderness. Extremitie: No edema. No calf tenderness. LABORATORY DATA: White count 9.2, hemoglobin 11.1 and platelets 251,000. Sodium 145, potassium 3.6, chloride 108, bicarb 27, anion gap 10, BUN 16, creatinine 0.83, glucose 84. Again, his GI panel previously did show enteroaggregative E-coli and C difficile. ASSESSMENT AND PLAN: 1. Healthcare associated pneumonia with hypoxic respiratory failure, cough and fever. Broad-spectrum antibiotics two more days to achieve ten days of therapy. Continues with aspiration precautions. Hypoxia has resolved. 2. Clostridium difficile colitis with E-Coli. Continue on Dificid. 3. Nutrition. Will plan on restarting his tube feedings today since his loose stools were decreased to one time yesterday. 4. Prior history of GI bleed. Will continue to monitor his hemoglobin and hematocrit (H and H) which is stable. He received a transfusion upon admission and has not required any further transfusions. We do have him on a proton pump inhibitor (PPI), which will be switched to per PEG tube once he is tolerating his feedings. 5. Hypernatremia, resolved. 6. Acute kidney injury, likely prerenal and is back to baseline. Will continue to follow. 7. Hypothyroidism. Continue Synthroid. 8. Hypertension. Continue atenolol with hold parameters. 9. Dementia. Appears to be stable. Continue Sertraline, mirtazapine and Namenda. 10. Esophageal dysmotility with aspiration risk. Will attempt to resume his tube feedings today with Glucerna and free water as before. 11. Osteoporosis of the jaw. Stable. 12. Chronic urinary retention, suprapubic catheter in place. Will continue to follow. Previous culture of Pseudomonas that was felt to be chronic colonization. 13. Troponin elevation and equivocal, likely related to renal disease. No further elevation during hospitalization. 14. Prior history of multiple myeloma. Can followup outpatient. No further blood transfusions have been needed; however, if he does require further, will need to be irradiated blood cells. DISPOSITION: Clinical status is guarded. He does have multiple comorbidities. He remains DO NOT RESUSCITATE/DO NOT INTUBATE (DNR/DNI). However, he does appear to be showing some slight improvement each day. He will likely need to continue with Dificid through this weekend. Continue to monitor electrolytes as well as renal function. He most likely will be here through the weekend and return to [facility] on Saturday.
[2016-11-14] MEDS: PANTOPRAZOLE 40MG INJ (PROTONIX) (C9113) IV SCH ×2 (12:07→20:30)
[2016-11-14] MEDS: MEROPENEM INJ 1 GM in D5W MINI-BAG PLUS 100 ML IV SCH ×2 (12:07→20:30)
[2016-11-14 15:00] VITALS: BP 132/68
--- NOTE | 2016-11-14 17:39 | REP ---
Procedure: PICC line insertion with Mike-Saul The procedure was performed under the direct supervision of Dr. Norman. The risks and benefits of the procedure were explained to the patient and informed consent was obtained. The right basilic vein was localized using ultrasound guidance. The skin was prepped and draped in a sterile fashion. 2% lidocaine was used as a local anesthetic. Using ultrasound guidance the basilic vein was cannulated and a 0.018 guidewire was inserted and advanced to the SVC using fluoroscopic guidance. The needle was removed and a 5.5 [place] dilator and peel-away sheath was inserted over the guide wire. A 5.5 [place] dual lumen catheter was cut to length of 40 cm. The dilator was removed and the catheter was inserted over the guide wire with the tip ending in the SVC. The peel-away sheath was removed and the catheter was flushed with heparinized saline as per Hospital protocol. The catheter was affixed to the skin and a sterile dressing was applied. The the patient tolerated the procedure well and there were no immediate complications. 1.1 minutes of fluoro time was utilized for this procedure. Reviewed by PA Vargas 11/14/2016 03:55 PSigned by Jose Maria Norman MD 11/14/2016 05:29 P
[2016-11-14] MEDS: SODIUM CHLORIDE 0.9% INJ 10 ML SYR IV SCH (18:56)
[2016-11-14 22:00] VITALS: BP 148/74
[2016-11-15 06:00] VITALS: BP 133/77
[2016-11-15] MEDS: LEVOTHYROXINE 0.112 MG TAB (112 MCG) PO SCH (06:06)
[2016-11-15] MEDS: SODIUM CHLORIDE 0.9% INJ 10 ML SYR IV SCH ×2 (07:38→18:03)
[2016-11-15 08:18] LABS: ANION GAP 7 MEQ/L (8-16); BLOOD UREA NITROGEN 15 MG/DL (7-18); CALCIUM LEVEL 7.8 MG/DL (8.8-10.2); CARBON DIOXIDE LEVEL 30 MEQ/L (21-32); CHLORIDE LEVEL 103 MEQ/L (98-107); CREATININE FOR GFR 0.88 MG/DL (0.70-1.30); GLOMERULAR FILTRATION RATE > 60.0 (>35); GLUCOSE, FASTING 109 MG/DL (83-110); POTASSIUM SERUM 3.5 MEQ/L (3.5-5.1); SODIUM LEVEL 140 MEQ/L (136-145)
[2016-11-15 08:55] LABS: MEAN CORPUSCULAR HEMOGLOBIN 28.4 pg (27.0-33.0); MEAN CORPUSCULAR HGB CONC 31.5 g/dl (32.0-36.5); MEAN CORPUSCULAR VOLUME 90.1 fl (80.0-96.0); RED CELL DISTRIBUTION WIDTH 14.9 % (11.5-14.5); WHITE BLOOD COUNT 10.1 K/mm3 (4.0-10.0)
[2016-11-15] MEDS: amLODIPine 10 MG TAB PO SCH (09:00)
[2016-11-15] MEDS: FIDAXOMICIN 200 MG TAB (DIFICID) PO SCH ×2 (09:44→20:04)
[2016-11-15] MEDS: PANTOPRAZOLE 40MG INJ (PROTONIX) (C9113) IV SCH ×2 (09:44→20:04)
[2016-11-15] MEDS: MEROPENEM INJ 1 GM in D5W MINI-BAG PLUS 100 ML IV SCH ×2 (09:47→20:05)
[2016-11-15] MEDS: NYSTATIN 100,000 UNITS/GM TOPICAL PWD 15 GM TOP SCH ×2 (09:48→20:05)
[2016-11-15] MEDS: ATENOLOL 50 MG TAB PO SCH (09:48)
[2016-11-15 14:00] VITALS: BP_SYST 138; BP_SYST 186; BP_DIAS 82; BP_DIAS 84
--- NOTE | 2016-11-15 14:05 | IPN ---
DATE: 11/15/2016 81-year-old male seen at bedside, resting comfortably. Denies chest pain, shortness of breath, productive sputum, cough or hemoptysis. Feels that his bowel movements have slowed down with his Clostridium (C) difficile and he has resumed his tube feedings. OBJECTIVE: Temperature 98.4, pulse 72, respiratory rate 22, blood pressure 133/77, SpO2 is 91% on room air. GENERAL: The patient appears to be in no acute distress. He is alert, oriented, pleasant. HEENT: Unremarkable. LUNGS: Clear. HEART: Regular rate and rhythm. ABDOMEN: Soft. EXTREMITIES: No edema. No calf tenderness. LABORATORY DATA: White count 10.1, hemoglobin 11.0, platelets are 269, sodium 140, potassium 3.5, chloride 103, bicarbonate 30, anion gap 7, BUN is 15, creatinine 0.88, glucose 109. He did have a PICC line placed yesterday due to difficulty with peripheral access. ASSESSMENT/PLAN: 1. Healthcare-associated pneumonia with hypoxic respiratory failure, cough, fever. Broad-spectrum antibiotics for the next day or so. We will plan on discontinuing after tomorrow. His hypoxia has resolved. He continues on room air. 2. Clostridium (C) difficile colitis with associated Escherichia (E) coli. Continue on Dificid. He does appear to be improving. 3. Nutrition. Tube feeds have been restarted at the previous feeding rates as well as free water. His bowel movements have begun to normalize. Will continue to follow. 4. Prior history of gastrointestinal (GI) bleed. His hemoglobin and hematocrit remained stable. He did not require any further blood transfusions other than the one time upon admission. Will continue on proton pump inhibitor (PPI) which we will switch to per PEG tube. 5. Hypernatremia, resolved. 6. Acute kidney injury, back to baseline. 7. Hypothyroidism. Continue on Synthroid. 8. Hypertension. Continue with atenolol with hold parameters. 9. Dementia, stable. Continue with sertraline, mirtazapine, and Namenda. 10. Esophageal dysmotility with aspiration risk. Continue with his tube feedings. 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 12. Chronic urinary retention with suprapubic catheter in place. Previous culture of Pseudomonas, this is likely chronic colonization since he is asymptomatic. 13. Troponin with slight elevation, equivocal, related most likely to renal disease. No further elevation during hospitalization. No chest pain or cardiac symptoms. 14. Prior history of multiple myeloma. Can followup with his providers as an outpatient. He did not require any further blood transfusions. If he should, we will need to make sure that they are irradiated blood cells. DISPOSITION: Clinical status long-term is guarded. He does have multiple comorbidities. His advanced directives states he is DO NOT RESUSCITATE/DO NOT INTUBATE. Likely will need to continue through the weekend on and most likely will be ready for discharge to [facility] on Saturday.
[2016-11-15 22:00] VITALS: BP 140/72
[2016-11-16] MEDS: LEVOTHYROXINE 0.112 MG TAB (112 MCG) PO SCH (05:33)
[2016-11-16] MEDS: SODIUM CHLORIDE 0.9% INJ 10 ML SYR IV SCH ×2 (05:34→17:40)
[2016-11-16 06:00] VITALS: BP 130/58
[2016-11-16 06:02] LABS: MEAN CORPUSCULAR HEMOGLOBIN 29.1 pg (27.0-33.0); MEAN CORPUSCULAR HGB CONC 32.6 g/dl (32.0-36.5); MEAN CORPUSCULAR VOLUME 89.1 fl (80.0-96.0); RED CELL DISTRIBUTION WIDTH 14.3 % (11.5-14.5)
[2016-11-16 06:25] LABS: ANION GAP 8 MEQ/L (8-16); BLOOD UREA NITROGEN 14 MG/DL (7-18); CARBON DIOXIDE LEVEL 31 MEQ/L (21-32); CHLORIDE LEVEL 103 MEQ/L (98-107); CREATININE FOR GFR 0.82 MG/DL (0.70-1.30); GLOMERULAR FILTRATION RATE > 60.0 (>35); GLUCOSE, FASTING 115 MG/DL (83-110); POTASSIUM SERUM 3.6 MEQ/L (3.5-5.1); SODIUM LEVEL 142 MEQ/L (136-145)
[2016-11-16] MEDS: amLODIPine 10 MG TAB PO SCH (09:00)
[2016-11-16] MEDS: MEROPENEM INJ 1 GM in D5W MINI-BAG PLUS 100 ML IV SCH ×2 (09:14→20:21)
[2016-11-16] MEDS: FIDAXOMICIN 200 MG TAB (DIFICID) PO SCH ×2 (09:14→20:20)
[2016-11-16] MEDS: PANTOPRAZOLE 40MG INJ (PROTONIX) (C9113) IV SCH (09:15)
[2016-11-16] MEDS: ATENOLOL 50 MG TAB PO SCH (09:15)
[2016-11-16] MEDS: NYSTATIN 100,000 UNITS/GM TOPICAL PWD 15 GM TOP SCH ×2 (09:15→20:21)
[2016-11-16 14:00] VITALS: BP 136/58
--- NOTE | 2016-11-16 14:05 | IPN ---
DATE: 11/16/2016 81-year-old gentleman seen at bedside. No overnight issues reported. He is resting comfortably. He has had three bowel movements yesterday and one so far this morning and they do appear to be more formed, according to the nurses. No chest pain, nausea, vomiting. No abdominal pain. OBJECTIVE: Temperature 96.5, pulse 75, respiratory rate 23, blood pressure 130/58, SpO2 is 93% on room air. GENERAL: The patient appears to be in no acute distress. He is alert and oriented. HEENT: Unremarkable. LUNGS: Clear. HEART: Regular rate and rhythm. ABDOMEN: Soft. Percutaneous endoscopic gastrostomy (PEG) tube is patent. EXTREMITIES: Trace edema. No calf tenderness. LABORATORY DATA: White count is 8.0, hemoglobin 11.3, platelets are 284,000. Sodium 142, potassium 3.6, chloride 103, bicarbonate 31, anion gap 8, BUN 14, creatinine is 0.82, glucose 115. ASSESSMENT/PLAN 1. Healthcare-associated pneumonia with hypoxic respiratory failure, cough, fever. Broad-spectrum antibiotics finished tomorrow. We will discontinue after that. He is doing well on room air. 2. Clostridium (C.) difficile colitis. We will go ahead and add on Bacid. Probiotics added to the Dificid, which he will finish this coming Saturday. 3. Nutrition. Continue tube feeds. There was some question, since he was on Glucerna, which had been recommended previously by the dietitian; however, there is no underlying history of diabetes. We will discontinue fingersticks. 4. Prior history of GI bleeds. No further issues. He has not required blood transfusions. We will continue to keep an eye on this. I did change him to Prevacid daily, which could be given through his PEG tube. 5. Hypernatremia, resolved. 6. Acute kidney injury, at baseline. 7. Hypothyroidism. Continue Synthroid. 8. Hypertension. Atenolol with hold parameters. 9. Dementia, stable on sertraline, mirtazapine, and Namenda 10. Esophageal dysmotility with aspiration risk. 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 12. Chronic urinary retention. Tube feed with catheter in place, appears to be doing well, possible Pseudomonas colonization. He is asymptomatic. 13. Elevated troponin on admission, likely related to renal disease and acute kidney injury. No chest pain. No cardiac symptoms. 14. Prior history of multiple myeloma. Follows up as an outpatient. He has not required any further blood transfusion. Should he need a transfusion in the future, it should be radiated blood cells. 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 He does have multiple comorbidities. Advance directives are on chart. He is DO NOT RESUSCITATE/DO NOT INTUBATE. He will likely be here through the weekend until he finishes his Dificid and we will anticipate discharge to [facility] on Saturday.
[2016-11-16] MEDS: LACTOBACILLUS ACIDOPHILUS CAP (BACID) PEG SCH (15:31)
[2016-11-16] MEDS: PERCOCET 5MG/325MG TAB PO PRN (20:20)
[2016-11-16 22:00] VITALS: BP 111/69
[2016-11-16] MEDS: SODIUM CHLORIDE 0.9% INJ 10 ML SYR IV PRN (22:54)
[2016-11-17] MEDS: PERCOCET 5MG/325MG TAB PO PRN ×3 (00:26→15:28)
[2016-11-17] MEDS: SODIUM CHLORIDE 0.9% INJ 10 ML SYR IV SCH ×2 (05:32→17:21)
[2016-11-17] MEDS: LEVOTHYROXINE 0.112 MG TAB (112 MCG) PO SCH (05:32)
[2016-11-17 06:00] VITALS: BP 149/71
[2016-11-17 06:07] LABS: MEAN CORPUSCULAR HEMOGLOBIN 29.2 pg (27.0-33.0); MEAN CORPUSCULAR HGB CONC 32.5 g/dl (32.0-36.5); MEAN CORPUSCULAR VOLUME 89.9 fl (80.0-96.0); RED CELL DISTRIBUTION WIDTH 14.2 % (11.5-14.5); WHITE BLOOD COUNT 6.8 K/mm3 (4.0-10.0)
[2016-11-17 06:29] LABS: ANION GAP 7 MEQ/L (8-16); BLOOD UREA NITROGEN 15 MG/DL (7-18); CALCIUM LEVEL 7.9 MG/DL (8.8-10.2); CARBON DIOXIDE LEVEL 33 MEQ/L (21-32); CHLORIDE LEVEL 102 MEQ/L (98-107); CREATININE FOR GFR 0.85 MG/DL (0.70-1.30); GLOMERULAR FILTRATION RATE > 60.0 (>35); GLUCOSE, FASTING 112 MG/DL (83-110); POTASSIUM SERUM 3.7 MEQ/L (3.5-5.1); SODIUM LEVEL 142 MEQ/L (136-145)
[2016-11-17] MEDS: LANSOPRAZOLE SUSPENSION 30 MG/10 ML ORAL SYRINGE (FIRST-LANSOPRAZOLE) FT SCH (09:03)
[2016-11-17] MEDS: LACTOBACILLUS ACIDOPHILUS CAP (BACID) PEG SCH (09:03)
[2016-11-17] MEDS: FIDAXOMICIN 200 MG TAB (DIFICID) PO SCH ×2 (09:03→20:58)
[2016-11-17] MEDS: amLODIPine 10 MG TAB PO SCH (09:03)
[2016-11-17] MEDS: ATENOLOL 50 MG TAB PO SCH (09:03)
[2016-11-17] MEDS: MEROPENEM INJ 1 GM in D5W MINI-BAG PLUS 100 ML IV SCH ×2 (09:04→20:58)
[2016-11-17] MEDS: NYSTATIN 100,000 UNITS/GM TOPICAL PWD 15 GM TOP SCH ×2 (09:04→20:58)
--- NOTE | 2016-11-17 09:36 | IPN ---
DATE: 11/17/2016 81-year-old seen at bedside resting comfortably. No overnight issues related. He denies chest pain, shortness of breath. No nausea, vomiting. OBJECTIVE: Temperature is 96.4, pulse 63, respiratory rate 18, blood pressure 149/71, SpO2 is 91% on room air. GENERAL: He is alert. HEENT: Unremarkable. LUNGS: Clear. HEART: Regular rate and rhythm. ABDOMEN: Soft. EXTREMITIES: No edema. No calf tenderness. LABORATORY DATA: White count 6.8, hemoglobin 11.1, platelets 269. Sodium is 142, potassium 3.7, chloride 102, bicarb 33, anion gap 7, BUN is 15, creatinine 0.85, glucose 112. ASSESSMENT/PLAN: 1. Healthcare associated pneumonia. He did have some hypoxia. He does appear to be doing much better. He finishes his meropenem today. Will continue to see how he does clinically through the weekend. 2. C. difficile colitis. I did add on Bacid yesterday. Continue Dificid and this should be finished Saturday and ready for discharge. 3. Nutrition. Continue tube feeds. He appears to be tolerating them well. 4. Anemia for which he did require a one time transfusion. His hemoglobin and hematocrit has been stable since then. It is likely related to history of gastrointestinal (GI) bleeds. Will continue on Prevacid per PEG tube. 5. Hypernatremia resolved. 6. Acute kidney injury at baseline. 7. Hypothyroidism. Continue Synthroid. 8. Hypertension stable. Continue blood pressure medications with hold parameters. 9. Dementia. Stable on sertraline, mirtazapine and Namenda. 10. Esophageal dysmotility with aspiration risk. Continues with PEG tube feedings. 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 12. Chronic urinary retention. He does have a suprapubic catheter in place. Possible Pseudomonas colonization. He remains asymptomatic. 13. Elevated troponin on admission. No chest pain. No cardiac related issues. Likely, this was related to his acute kidney injury and renal disease. It has trended downward. 14. History of multiple myeloma. Can followup outpatient. If he does require any further blood transfusions this will need to be by radiated blood cells. DISPOSITION: Long-term is guarded due to his multiple comorbidities and aspiration risk. He remains DO NOT RESUSCITATE/DO NOT INTUBATE. Will continue treatment of C. difficile with Dificid through the weekend. Anticipate discharge to [facility] on Saturday.
[2016-11-17 14:00] VITALS: BP 142/72
[2016-11-17] MEDS: SODIUM CHLORIDE 0.9% INJ 10 ML SYR IV PRN (21:53)
[2016-11-17 22:00] VITALS: BP 140/70
[2016-11-18] MEDS: SODIUM CHLORIDE 0.9% INJ 10 ML SYR IV SCH ×2 (05:36→18:06)
[2016-11-18] MEDS: LEVOTHYROXINE 0.112 MG TAB (112 MCG) PO SCH (05:37)
[2016-11-18 05:58] LABS: MEAN CORPUSCULAR HEMOGLOBIN 29.7 pg (27.0-33.0); MEAN CORPUSCULAR HGB CONC 31.8 g/dl (32.0-36.5); MEAN CORPUSCULAR VOLUME 93.3 fl (80.0-96.0); RED CELL DISTRIBUTION WIDTH 15.3 % (11.5-14.5); WHITE BLOOD COUNT 10.4 K/mm3 (4.0-10.0)
[2016-11-18 06:00] VITALS: BP 130/85
[2016-11-18 06:17] LABS: ANION GAP 6 MEQ/L (8-16); BLOOD UREA NITROGEN 16 MG/DL (7-18); CALCIUM LEVEL 8.1 MG/DL (8.8-10.2); CARBON DIOXIDE LEVEL 33 MEQ/L (21-32); CHLORIDE LEVEL 104 MEQ/L (98-107); CREATININE FOR GFR 0.82 MG/DL (0.70-1.30); GLOMERULAR FILTRATION RATE > 60.0 (>35); GLUCOSE, FASTING 120 MG/DL (83-110); POTASSIUM SERUM 3.9 MEQ/L (3.5-5.1); SODIUM LEVEL 143 MEQ/L (136-145)
[2016-11-18] MEDS: amLODIPine 10 MG TAB PO SCH (08:39)
[2016-11-18] MEDS: ATENOLOL 50 MG TAB PO SCH (09:00)
[2016-11-18] MEDS: FIDAXOMICIN 200 MG TAB (DIFICID) PO SCH ×2 (09:00→20:36)
[2016-11-18] MEDS: MEROPENEM INJ 1 GM in D5W MINI-BAG PLUS 100 ML IV SCH (09:00)
[2016-11-18] MEDS: LANSOPRAZOLE SUSPENSION 30 MG/10 ML ORAL SYRINGE (FIRST-LANSOPRAZOLE) FT SCH (09:00)
[2016-11-18] MEDS: NYSTATIN 100,000 UNITS/GM TOPICAL PWD 15 GM TOP SCH ×2 (09:00→20:37)
[2016-11-18] MEDS: LACTOBACILLUS ACIDOPHILUS CAP (BACID) PEG SCH (09:00)
[2016-11-18 14:00] VITALS: BP 140/60
[2016-11-18] MEDS ORDERED: POLYVINYL ALCOHOL OPHTH SOLN 15 ML(LIQUITEARS) OU PRN (17:00)
--- NOTE | 2016-11-18 17:11 | IPNPDOC ---
Assessment/Plan Date Seen The patient was seen on 11/18/16. Problems Problems: (1) HCAP (healthcare-associated pneumonia) Status: Acute Problem Text: leukocytosis of 20.3 on admission, which has now resolved; now s/ p 10 days of IV merrem; blood cultures negative (2) UTI (urinary tract infection) Status: Acute Problem Text: Ucx grew PSA; now s/p merrem treatment (3) C. difficile diarrhea Status: Acute Problem Text: currently on dificid, which was started on 11/12/16; will need 10 days of treatment; continue bacid (4) Metabolic encephalopathy Status: Resolved Problem Text: likely multifactorial (hypernatremia, multiple infections); initially held dementia meds but will now restart as his mental status is at baseline (5) Esophageal dysmotility Status: Chronic Problem Text: uses PEG for feeding secondary to aspiration risk (6) JOVAN (acute kidney injury) Status: Acute Problem Text: Cr was 1.83 on admission; H&P reports hx of CKD stage 3, however , Cr has now returned to <1 (7) Hypernatremia Status: Acute Problem Text: Na 155 on admission; now resolved and Na WNL (8) Elevated troponin Status: Acute Problem Text: likely secondary to demand ischemia from dehydration and hypernatremia, coupled with JOVAN; no chest pain; trop peaked at 0.35 and now trending down (9) Anemia Status: Chronic Problem Text: baseline Hgb is in 10-11s; trended down to mid 8s and received 2u PRBCs on 11/09/16; Hgb now stable at baseline (10) HTN (hypertension) Status: Chronic Problem Text: continue home norvasc and atenolol (11) Hypothyroidism Status: Chronic Problem Text: continue home synthroid (12) 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 Events since last encounter reports itchy eyes Pulmonary: Denies: Cough Cardiovascular: Denies: Chest Pain Objective Physical Examination General Exam: Positive: Alert, Cooperative, No Acute Distress Eye Exam: Positive: EOMI ENT Exam: Positive: Atraumatic Neck Exam: Positive: Supple Chest Exam: Positive: Clear to auscultation, Normal air movement Heart Exam: Positive: Rate Normal, Regular Rhythm Abdomen Exam: Positive: Soft, Negative: Tenderness Extremity Exam: Positive: Normal pulses, Negative: Edema Neuro Exam: Positive: Normal Speech Psych Exam: Positive: Mental status NL, Oriented x 3 Vital Signs/I&O Vital Signs Date Time Temp Pulse Resp B/P Pulse Ox O2 Delivery O2 Flow Rate FiO2 11/18/16 09:00 Room Air 11/18/16 09:00 66 130/85 11/18/16 06:00 96.5 16 93 11/12/16 09:00 1.0 I&O- Last 24 Hours up to 6 AM 11/18/16 06:00 Intake Total 877 ml Output Total 2050 ml Balance -1173 ml Laboratory Data Labs 24H Laboratory Tests 2 11/18/16 05:44: Anion Gap 6L, Blood Urea Nitrogen 16, Creatinine 0.82, Sodium Level 143, Potassium Level 3.9, Chloride Level 104, Carbon Dioxide Level 33H, Calcium Level 8.1L, Glomerular Filtration Rate > 60.0 CBC/BMP Laboratory Tests 11/18/16 05:44 Calcium Level 8.1 L, Red Blood Count 3.91 L, Mean Corpuscular Volume 93.3, Mean Corpuscular Hemoglobin 29.7, Mean Corpuscular Hemoglobin Concent 31.8 L, Red Cell Distribution Width 15.3 H Microbiology Microbiology 11/08/16 Blood Culture - Final, Complete NO GROWTH AFTER 5 DAYS 11/08/16 Blood Culture - Final, Complete NO GROWTH AFTER 5 DAYS 11/08/16 Stool Occult Blood (SKY) - Final, Complete 11/08/16 Gastrointestinal Tract Panel (PCR) - Final, Complete Enteroaggregative E.coli Clostridium Difficile A/B 11/08/16 MRSA Screen - Final, Complete 11/08/16 Respiratory Virus Panel (PCR) (SKY) - Final, Complete TONY ESTES Nov 18, 2016 17:11
[2016-11-18] MEDS: MIRTAZAPINE 7.5MG PER 1/2 TABLET PO SCH (20:36)
[2016-11-18 22:00] VITALS: BP 148/70
[2016-11-19] MEDS: LEVOTHYROXINE 0.112 MG TAB (112 MCG) PO SCH (05:36)
[2016-11-19] MEDS: SODIUM CHLORIDE 0.9% INJ 10 ML SYR IV SCH ×2 (05:37→17:43)
[2016-11-19 06:00] VITALS: BP 132/78
[2016-11-19 06:09] LABS: MEAN CORPUSCULAR HEMOGLOBIN 29.3 pg (27.0-33.0); MEAN CORPUSCULAR HGB CONC 32.4 g/dl (32.0-36.5); MEAN CORPUSCULAR VOLUME 90.2 fl (80.0-96.0); RED CELL DISTRIBUTION WIDTH 14.4 % (11.5-14.5); WHITE BLOOD COUNT 8.6 K/mm3 (4.0-10.0)
[2016-11-19 06:21] LABS: ANION GAP 6 MEQ/L (8-16); BLOOD UREA NITROGEN 16 MG/DL (7-18); CALCIUM LEVEL 8.2 MG/DL (8.8-10.2); CARBON DIOXIDE LEVEL 33 MEQ/L (21-32); CHLORIDE LEVEL 103 MEQ/L (98-107); GLOMERULAR FILTRATION RATE > 60.0 (>35); GLUCOSE, FASTING 113 MG/DL (83-110); MAGNESIUM LEVEL 2.2 MG/DL (1.8-2.4); POTASSIUM SERUM 3.8 MEQ/L (3.5-5.1); SODIUM LEVEL 142 MEQ/L (136-145)
[2016-11-19] MEDS: LANSOPRAZOLE SUSPENSION 30 MG/10 ML ORAL SYRINGE (FIRST-LANSOPRAZOLE) FT SCH (09:26)
[2016-11-19] MEDS: amLODIPine 10 MG TAB PO SCH (09:27)
[2016-11-19] MEDS: LACTOBACILLUS ACIDOPHILUS CAP (BACID) PEG SCH (09:27)
[2016-11-19 09:28] VITALS: BP 132/78
[2016-11-19] MEDS: SERTRALINE HCL 50 MG TAB PO SCH (09:28)
[2016-11-19] MEDS: FIDAXOMICIN 200 MG TAB (DIFICID) PO SCH ×2 (09:28→20:54)
[2016-11-19] MEDS: ATENOLOL 50 MG TAB PO SCH (09:28)
[2016-11-19] MEDS: NYSTATIN 100,000 UNITS/GM TOPICAL PWD 15 GM TOP SCH ×2 (09:29→20:54)
[2016-11-19] MEDS: PERCOCET 5MG/325MG TAB PO PRN (12:05)
[2016-11-19 14:00] VITALS: BP 142/70
--- NOTE | 2016-11-19 16:21 | IPNPDOC ---
Assessment/Plan Date Seen The patient was seen on 11/19/16. Problems Problems: (1) HCAP (healthcare-associated pneumonia) Status: Acute Problem Text: leukocytosis of 20.3 on admission, which has now resolved; now s/ p 10 days of IV merrem; blood cultures negative (2) UTI (urinary tract infection) Status: Acute Problem Text: Ucx grew PSA; now s/p merrem treatment (3) C. difficile diarrhea Status: Acute Problem Text: currently on dificid, which was started on 11/12/16; will need 10 days of treatment; continue bacid (4) Metabolic encephalopathy Status: Resolved Problem Text: likely multifactorial (hypernatremia, multiple infections); initially held dementia meds but will now restart as his mental status is at baseline (5) Esophageal dysmotility Status: Chronic Problem Text: uses PEG for feeding secondary to aspiration risk (6) JOVAN (acute kidney injury) Status: Acute Problem Text: Cr was 1.83 on admission; H&P reports hx of CKD stage 3, however , Cr has now returned to <1 (7) Hypernatremia Status: Acute Problem Text: Na 155 on admission; now resolved and Na WNL (8) Elevated troponin Status: Acute Problem Text: likely secondary to demand ischemia from dehydration and hypernatremia, coupled with JOVAN; no chest pain; trop peaked at 0.35 and now trending down (9) Anemia Status: Chronic Problem Text: baseline Hgb is in 10-11s; trended down to mid 8s and received 2u PRBCs on 11/09/16; Hgb now stable at baseline (10) HTN (hypertension) Status: Chronic Problem Text: continue home norvasc and atenolol (11) Hypothyroidism Status: Chronic Problem Text: continue home synthroid (12) Multiple myeloma Status: Chronic Problem Text: s/p transplant in 1998 (13) Urinary retention Status: Chronic Problem Text: has had a chronic indwelling angel for over 1 year (14) GERD (gastroesophageal reflux disease) Status: Chronic Problem Text: continue home PPI (15) History of osteonecrosis Status: Chronic Problem Text: of the jaw; stable (16) Dementia Status: Chronic Problem Text: continue home sertraline and mirtazapime; namenda not on formulary so currently holding Plan / VTE VTE Prophylaxis Ordered?: Yes (SCDs) Disposition stable for discharge, however, [facility] cannot accept him while still on dificid; needs to complete a 10 day course started on 11/12/16 Subjective Review of Systems CC/HPI The patient is a 81-year-old male admitted with a reason for visit of CHF. Events since last encounter no complaints other than being tired Cardiovascular: Denies: Chest Pain Gastrointestinal: Denies: Vomiting Objective Physical Examination General Exam: Positive: Alert, Cooperative, No Acute Distress Eye Exam: Positive: EOMI ENT Exam: Positive: Atraumatic, Mucous membr. moist/pink Neck Exam: Positive: Supple Chest Exam: Positive: Clear to auscultation, Normal air movement Heart Exam: Positive: Rate Normal, Regular Rhythm Abdomen Exam: Positive: Normal bowel sounds, Soft, Negative: Tenderness Extremity Exam: Positive: Normal pulses, Negative: Edema Neuro Exam: Positive: Normal Speech Psych Exam: Positive: Mental status NL, Oriented x 3 Vital Signs/I&O Vital Signs Date Time Temp Pulse Resp B/P Pulse Ox O2 Delivery O2 Flow Rate FiO2 11/19/16 14:00 96.0 56 18 142/70 96 Room Air I&O- Last 24 Hours up to 6 AM 11/19/16 06:00 Intake Total 686 ml Output Total 3300 ml Balance -2614 ml Laboratory Data Labs 24H Laboratory Tests 2 11/19/16 05:52: Anion Gap 6L, Blood Urea Nitrogen 16, Creatinine 0.80, Sodium Level 142, Potassium Level 3.8, Chloride Level 103, Carbon Dioxide Level 33H, Calcium Level 8.2L, Glomerular Filtration Rate > 60.0, Magnesium Level 2.2 CBC/BMP Laboratory Tests 11/19/16 05:52 Calcium Level 8.2 L, Red Blood Count 4.02 L, Mean Corpuscular Volume 90.2, Mean Corpuscular Hemoglobin 29.3, Mean Corpuscular Hemoglobin Concent 32.4, Red Cell Distribution Width 14.4 TONY ESTES Nov 19, 2016 16:21
[2016-11-19] MEDS: MIRTAZAPINE 7.5MG PER 1/2 TABLET PO SCH (20:54)
[2016-11-19 22:00] VITALS: BP 130/72
[2016-11-20] MEDS: LEVOTHYROXINE 0.112 MG TAB (112 MCG) PO SCH (05:45)
[2016-11-20] MEDS: SODIUM CHLORIDE 0.9% INJ 10 ML SYR IV SCH (05:46)
[2016-11-20 06:00] VITALS: BP 138/69
[2016-11-20 06:12] LABS: MEAN CORPUSCULAR HEMOGLOBIN 29.1 pg (27.0-33.0); MEAN CORPUSCULAR HGB CONC 32.5 g/dl (32.0-36.5); MEAN CORPUSCULAR VOLUME 89.8 fl (80.0-96.0); RED CELL DISTRIBUTION WIDTH 14.4 % (11.5-14.5); WHITE BLOOD COUNT 9.5 K/mm3 (4.0-10.0)
[2016-11-20 06:31] LABS: ANION GAP 6 MEQ/L (8-16); BLOOD UREA NITROGEN 19 MG/DL (7-18); CALCIUM LEVEL 8.3 MG/DL (8.8-10.2); CARBON DIOXIDE LEVEL 32 MEQ/L (21-32); CHLORIDE LEVEL 103 MEQ/L (98-107); CREATININE FOR GFR 0.88 MG/DL (0.70-1.30); GLOMERULAR FILTRATION RATE > 60.0 (>35); GLUCOSE, FASTING 111 MG/DL (83-110); MAGNESIUM LEVEL 2.2 MG/DL (1.8-2.4); POTASSIUM SERUM 4.1 MEQ/L (3.5-5.1); SODIUM LEVEL 141 MEQ/L (136-145)
[2016-11-20] MEDS: amLODIPine 10 MG TAB PO SCH (09:42)
[2016-11-20] MEDS: LANSOPRAZOLE SUSPENSION 30 MG/10 ML ORAL SYRINGE (FIRST-LANSOPRAZOLE) FT SCH (09:42)
[2016-11-20] MEDS: LACTOBACILLUS ACIDOPHILUS CAP (BACID) PEG SCH (09:42)
[2016-11-20] MEDS: SERTRALINE HCL 50 MG TAB PO SCH (09:42)
[2016-11-20] MEDS: ATENOLOL 50 MG TAB PO SCH (09:42)
[2016-11-20] MEDS: FIDAXOMICIN 200 MG TAB (DIFICID) PO SCH (09:43)
[2016-11-20] MEDS: NYSTATIN 100,000 UNITS/GM TOPICAL PWD 15 GM TOP SCH (09:43)
[2016-11-20] MEDS: PERCOCET 5MG/325MG TAB PO PRN (09:43)
[2016-11-20] MEDS ORDERED: FIRS3SUS FT (10:20)
[2016-11-20] MEDS ORDERED: DIFI200T PO (10:20)
[2016-11-20] MEDS ORDERED: RISATAB3 PEG (10:20)
[2016-11-20] MEDS ORDERED: NYST10PW TOP (10:20)
--- NOTE | 2016-11-20 15:25 | DSES ---
DATE OF ADMISSION: 11/07/2016 DATE OF DISCHARGE: 11/20/2016 PRIMARY CARE PROVIDER: Dr. Milana Luevano DISCHARGE DIAGNOSES: 1. Clostridium (C) difficile colitis. 2. Urinary tract infection with Pseudomonas. 3. Healthcare-associated pneumonia, treated. 4. Metabolic encephalopathy. 5. Esophageal dysmotility, has a percutaneous endoscopic gastrostomy (PEG) tube in place. 6. Acute kidney injury, resolved. 7. Hypernatremia, resolved. 8. Secondary elevation of troponin, resolved. 9. Chronic anemia. 10. Hypertension. 11. Hypothyroidism. 12. History of multiple myeloma status post bone marrow transplant in 1998. 13. Chronic urinary retention, has indwelling Martin for over one year. 14. Gastroesophageal reflux disease (GERD). 15. History of osteonecrosis of the jaw, stable. 16. Dementia. 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 18. Compression vertebral fractures with bilateral lower extremity weakness and inability to ambulate. DISCHARGE MEDICATIONS: - Dificid 200 mg by mouth twice a day - lansoprazole 30 mg through PEG tube - Nystatin powder twice a day - probiotic two tablets daily - acetaminophen 650 mg per rectum every four hours as needed - acetaminophen 650 mg by mouth every four hours as needed - amlodipine 10 mg daily - atenolol 75 mg daily - Dulcolax 10 mg per rectum daily as needed - enema one daily as needed - guaifenesin-dextromethorphan 10 mL by mouth every six hours as needed for cough - Synthroid 224 mcg by mouth daily - memantine hydrochloride XR 21 mg by mouth daily - milk of magnesia 30 mL by mouth daily as needed for constipation - mirtazapine 7.5 mg by mouth at bedtime - sertraline 150 mg by mouth daily - Ensure Enlive one liquid by mouth twice a day HOSPITAL COURSE: This is an 81-year-old male from [facility] who was getting rehabilitation there after a prolonged hospitalization from August 2016 to September 2016, who was sent to the emergency room for fever, cough, and hypoxia. The patient was found to have healthcare-associated pneumonia and was started on treatment with meropenem and vancomycin. The patient has a chronic Martin for chronic urinary retention and was also found to have urinary tract infection with Pseudomonas which was treated with the meropenem. The patient responded well to treatment for pneumonia and urinary tract infection (UTI). However, the hospital course was complicated by development of Clostridium (C) difficile diarrhea, so the patient was started on Dificid to which he has responded with resolution of diarrhea. The patient also had acute kidney injury on admission which resolved with hydration in the hospital. The patient was continued on his feeding through percutaneous endoscopic gastrostomy (PEG) tube. At present, the patient is functionally at his baseline with stable vital signs and going to be [facility]. PHYSICAL EXAMINATION: VITAL SIGNS: Temperature 97, pulse 70, respiratory rate 18, blood pressure 138/69, pulse oximetry 95% on room air. GENERAL: Patient awake, alert and oriented times two, laying down in bed, in no acute distress. HEENT: Normocephalic, atraumatic. Moist mucous membranes. Anicteric eyes. CHEST: Bibasilar crackles. CARDIOVASCULAR: S1, S2, regular. ABDOMEN: Soft, nontender, bowel sounds present. Percutaneous endoscopic gastrostomy (PEG) tube in position and Martin in place. EXTREMITIES: No edema. LABORATORY DATA: WBC 9.5, hemoglobin 11.9, platelets 293. Sodium 141, potassium 4.1, chloride 103, bicarbonate 32, BUN 19, creatinine 0.8, glucose 111, calcium 8.3, magnesium 2.2. Urine culture showed Pseudomonas. Stool culture showed Clostridium difficile as well as enteroaggregative E. coli. Flu was negative. Respiratory viral panel was negative. Stool for occult blood was positive. DISPOSITION: The patient is discharged to [facility]. DISCHARGE INSTRUCTIONS: Patient to followup with primary care provider within one week. Feed through percutaneous endoscopic gastrostomy (PEG) tube. Activity as tolerated.
== END 2016-11-20 11:43 | DRG 193 ==
LOC: M ED 17:01 → M ED INP 19:37 → M MSPAV 11-08 00:59
PROVIDERS: ADMIT Internal Medicine Nephrology; ATTEND Internal Medicine Nephrology
PROC: 30233N1 Transfusion of Nonautologous Red Blood Cells into Peripheral Vein, Percutaneous Approach (ICD-10-PCS; principal; 2016-11-09)
PROC: 02HV33Z Insertion of Infusion Device into Superior Vena Cava, Percutaneous Approach (ICD-10-PCS; 2016-11-11)
DX: J18.9 Pneumonia, unspecified organism (principal); J96.01 Acute respiratory failure with hypoxia; G93.41 Metabolic encephalopathy; E87.0 Hyperosmolality and hypernatremia; N17.9 Acute kidney failure, unspecified; A04.7 Enterocolitis due to Clostridium difficile; N39.0 Urinary tract infection, site not specified; M87.88 Other osteonecrosis, other site; K62.5 Hemorrhage of anus and rectum; Z66 Do not resuscitate; J32.0 Chronic maxillary sinusitis; N18.3 Chronic kidney disease, stage 3 (moderate); M27.40 Unspecified cyst of jaw; M84.48XD Pathological fracture, other site, subsequent encounter for fracture with routine healing; K22.4 Dyskinesia of esophagus; B96.5 Pseudomonas (aeruginosa) (mallei) (pseudomallei) as the cause of diseases classified elsewhere; B96.20 Unspecified Escherichia coli [E. coli] as the cause of diseases classified elsewhere; R79.89 Other specified abnormal findings of blood chemistry; D64.9 Anemia, unspecified; I12.9 Hypertensive chronic kidney disease with stage 1 through stage 4 chronic kidney disease, or unspecified chronic kidney disease; E03.9 Hypothyroidism, unspecified; K21.9 Gastro-esophageal reflux disease without esophagitis; F03.90 Unspecified dementia, unspecified severity, without behavioral disturbance, psychotic disturbance, mood disturbance, and anxiety; R33.9 Retention of urine, unspecified; Z79.899 Other long term (current) drug therapy; Z91.81 History of falling; Z90.49 Acquired absence of other specified parts of digestive tract; Z88.0 Allergy status to penicillin; Z93.1 Gastrostomy status; Z85.79 Personal history of other malignant neoplasms of lymphoid, hematopoietic and related tissues

== ENCOUNTER 2017-01-09 13:11 | Inpatient (IN) | payer MEDICARE, MEDICAID ==
[~2017-01-09] VITALS: Ht 175.3 cm; Wt 78.4 kg
[~2017-01-09 13:11] MED LIST changes: -ALBU83IN INH; -LANS30CA PO; -MOUKOT60 MT; -OSMOLIQ7 EN; -OSMOLIQ7 PO; -RISATAB3 EN
[2017-01-09] MEDS ORDERED: OSMOLIQ7 PO (13:29)
[2017-01-09] MEDS ORDERED: NS 500 ML IV ONE (13:30)
[2017-01-09] MEDS: FUROSEMIDE 40 MG/4 ML VIAL (J1940) IV ONE ×2 (13:39→16:14)
[2017-01-09 13:47] LABS: ABG HCO3 31.3 MEQ/L (22.0-26.0); ABG PARTIAL PRESSURE O2 131.4 mmHg (75.0-100.0); ABG STANDARD HCO3 26.2 MEQ/L (22.0-26.0); ABG TOTAL CO2 33.6 MEQ/L (23.0-31.0)
[2017-01-09 13:50] LABS: ABG PARTIAL PRESSURE CO2 76.7 mmHg (35.0-45.0); ABG pH (ARTERIAL) 7.228 UNITS (7.350-7.450)
[2017-01-09 14:01] LABS: ALBUMIN 2.9 GM/DL (3.2-5.2); ALKALINE PHOSPHATASE 131 U/L (45-117); ALT/SGPT 53 U/L (12-78); ANION GAP 7 MEQ/L (8-16); AST/SGOT 42 U/L (15-37); BILIRUBIN,DIRECT < 0.1 MG/DL (0.0-0.2); BILIRUBIN,TOTAL 0.2 MG/DL (0.2-1.0); BLOOD UREA NITROGEN 58 MG/DL (7-18); CALCIUM LEVEL 8.7 MG/DL (8.8-10.2); CARBON DIOXIDE LEVEL 33 MEQ/L (21-32); CHLORIDE LEVEL 105 MEQ/L (98-107); CREATININE FOR GFR 1.52 MG/DL (0.70-1.30); GLOMERULAR FILTRATION RATE 47.1 (>35); GLUCOSE, FASTING 131 MG/DL (83-110); POTASSIUM SERUM 4.6 MEQ/L (3.5-5.1); SODIUM LEVEL 145 MEQ/L (136-145); TOTAL PROTEIN 7.7 GM/DL (6.4-8.2)
[2017-01-09 14:02] LABS: MEAN CORPUSCULAR HEMOGLOBIN 29.1 pg (27.0-33.0); MEAN CORPUSCULAR HGB CONC 30.4 g/dl (32.0-36.5); MEAN CORPUSCULAR VOLUME 95.9 fl (80.0-96.0); PLATELET COUNT, AUTOMATED 279 k/mm3 (150-450); RED CELL DISTRIBUTION WIDTH 14.8 % (11.5-14.5); WHITE BLOOD COUNT 14.8 K/mm3 (4.0-10.0)
[2017-01-09 14:44] LABS: BANDS 6 % (< 11); BASOPHILS 1 % (0-4); HYPOCHROMASIA 1+
[2017-01-09 14:55] LABS: ABG BASE EXCESS 1.7 (-2.0-2.0); ABG HCO3 30.1 MEQ/L (22.0-26.0); ABG PARTIAL PRESSURE O2 137.4 mmHg (75.0-100.0); ABG TOTAL CO2 32.2 MEQ/L (23.0-31.0); ABG pH (ARTERIAL) 7.261 UNITS (7.350-7.450)
[2017-01-09 14:56] LABS: ABG PARTIAL PRESSURE CO2 68.5 mmHg (35.0-45.0)
[2017-01-09] MEDS ORDERED: FUROSEMIDE 40 MG/4 ML VIAL (J1940) IV ONE (15:00)
--- NOTE | 2017-01-09 15:11 | REP ---
NONCONTRAST BRAIN CT: HISTORY: Decreased mental status. Comparison head CT study is from October 03, 2016. CT FINDINGS: Digital lateral electrical installer radiograph is unremarkable. Bony calvarium is intact. No skull fracture or bony destructive lesion is seen. There is moderate vascular calcification in the distal carotid arteries bilaterally. There is some mucosal thickening in the left maxillary sinus. The paranasal sinuses are otherwise clear. No intraorbital abnormality is appreciated. There is moderate diffuse cerebral atrophy. Small vessel atherosclerotic low density areas are seen in the periventricular white matter. There is concordant ventricular enlargement. There is some punctate physiologic calcification of the basal ganglia bilaterally as before. There is no evidence of intracranial hemorrhage. No mass, infarct, extra-axial fluid collection, or midline shift is seen. IMPRESSION: Moderate diffuse cerebral atrophy and small vessel changes as before. No acute intracranial abnormality. Vascular calcification. Signed by Jose Maria Norman MD 01/09/2017 06:19 P
[2017-01-09] MEDS ORDERED: RISATAB3 EN (15:33)
[2017-01-09] MEDS ORDERED: OSMOLIQ7 EN ×2 (15:33→15:36)
[2017-01-09] MEDS ORDERED: ALBU83IN INH (15:39)
[2017-01-09] MEDS ORDERED: MOUKOT60 MT (15:39)
[2017-01-09] MEDS ORDERED: LANS30CA PO (15:42)
[2017-01-09] MEDS ORDERED: VANCOMYCIN HCL 1,000 MG, VIAL MATE ADAPTER 1 EACH in D5W 250 ML IV ONE (16:45)
[2017-01-09] MEDS ORDERED: AZTREONAM 1 GM in D5W MINI-BAG PLUS 50 ML IV SCH (16:45)
[2017-01-09] MEDS ORDERED: ONDANSETRON 4MG/2ML VIAL (J2405) IV PRN (17:00)
--- NOTE | 2017-01-09 17:34 | ECGEPIP ---
Stationary ECG Study [facility] - ED Test Date: 2017-01-09 Pat Name: KIARA ROLLINS Department: Room: - Gender: M Card Hand: day : 1935 Requested By: ROXANNA Jamison Order Number: [id number] Reading MD: Gonzalo Mcdermott Measurements Intervals [place] Rate: 60 P: 20 NV: 148 QRS: -18 QRSD: 134 T: -15 QT: 467 QTc: 468 Interpretive Statements SINUS RHYTHM RIGHT BUNDLE BRANCH BLOCK SIMILAR TO 11/07/16 Electronically Signed On 01-09-2017 17:34:15 EDT by Gonzalo Mcdermott
[2017-01-09] MEDS ORDERED: SALIVA SUBSTITUTE(MOUTHKOTE) BTL MT PRN (17:45)
--- NOTE | 2017-01-09 18:07 | HPE ---
DATE OF ADMISSION: 01/09/2017 This is a patient of Dr. Cormier and [facility]. At [facility] he sees Dr. Luevano. CHIEF COMPLAINT: Hypoxia, syncope. SUMMARY OF PRESENTATION: This is an 81-year-old resident of [facility], who apparently was in his normal state of health 3 days ago. He had gone to some sort of music show and was awake, laughing, and clapping. Today during physical therapy he had decreased oxygen level and decreased level of responsiveness. Was apparently relatively sudden in onset. He was brought to the emergency department for evaluation and was found to be hypoxic and hypercapnic. The thought was he may have been fluid overloaded. He was given Lasix. I was called to admit. PAST MEDICAL HISTORY: Notable for: 1. Hypertension. 2. Hyperlipidemia. 3. Hypothyroidism. 4. Multiple myeloma, status post donor bone marrow transplant. 5. 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 6. Gastroesophageal reflux disease (GERD). 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 9. Compression fractures. 10. Bilateral lower extremity weakness. 11. History of chronic aspiration with percutaneous endoscopic gastrostomy (PEG) tube. 12. History of dehydration. 13. Esophageal dysmotility. 14. Osteoarthritis. 15. Chronic kidney disease, stage III. 16. Dementia. 17. History of multiple falls and inability to walk. PAST SURGICAL HISTORY: Notable for cholecystectomy. SOCIAL HISTORY: The patient is a resident of [facility] and has an attentive family. ALLERGIES: He has an allergy to PENICILLIN. FAMILY HISTORY: Unremarkable due to advanced age. MEDICATIONS: At the [facility] include: - Tylenol as needed - albuterol four times a day - Norvasc 10 mg daily - atenolol 50 mg daily - Dulcolax 10 mg as needed - enema as needed - Synthroid 112 mcg two tablets daily - milk of magnesia as needed - mirtazapine 7.5 mg in the evening - probiotic daily - saliva substitute - sertraline 150 mg daily - Prevacid 30 mg daily - Namenda XR 20 mg daily - Osmolite feeds REVIEW OF SYSTEMS: Is not meaningful obtainable in this patient. Temperature is 96.6, pulse 59, respiratory rate 24, blood pressure 129/77, 97% on bilevel positive airway pressure (BiPAP). Intake and output notable for a negative fluid balance of -150. He has had 150 mL of urine output with one dose of intravenous (IV) Lasix. He is responsive to pain and localizing. He is otherwise not following commands. Head is normocephalic. He has seemingly poor dentition. Mucous membranes are dry and cracked. Neck is supple. No cervical or supraclavicular adenopathy. There is elevation of jugular venous pulse (JVP) without hepatojugular reflux. Breathing is symmetrically diminished with poor inspiratory effort. Heart is distant sounding. Normal S1, S2. Is not tachycardic. Abdomen soft, doughy, nontender. Hypoactive bowel sounds. There is trace bilateral lower extremity edema. His feet are dry. He appears to be moving all four extremities. White cell count 14.8, hemoglobin 10.5, and platelets of 279. BUN 58, creatinine 1.52. Lactic acid 0.9. Calcium is 8.7. AST 42, ALT 53, alkaline phosphatase 131. BNP is 1160. Albumin 2.9. Blood gas was 7.22, 76, 131 with a bicarbonate of 31. Repeated to 7.26, 68, 137, and a bicarbonate of 30. There is no EKG for me to review. Chest x-ray is poor inspiratory effort. Head CT shows no acute abnormality. Chest CT is pending. ASSESSMENT: This is an 81-year-old with sudden-onset hypoxic hypercapnic respiratory failure. Patient will require 2-midnight hospital stay and admission to the intensive care unit (ICU). PLAN: 1. Respiratory. Patient continues on bilevel positive airway pressure (BiPAP). He does have pauses in his breathing during my evaluation. I had a discussion with the patient's family at bedside about their wishes. There are unsure about his wishes regarding intubation, as that portion of his DO NOT RESUSCITATE form is not available to us. Although he is DO NOT RESUSCITATE, we are unsure about his intubation wishes. Plan to discuss with the family. Underlying cause of his respiratory failure is unclear. Possible aspiration event is considered. Possible infectious etiology is also considered, as his bands are 6% and his neutrophils are 82, showing a left shift. I have ordered repeat blood cultures, a urinalysis (UA), urine culture. The urine is curdish and milky. Patient is started on aztreonam, which he has previously tolerated, and vancomycin. 2. Patient has history of hypertension. I believe that hypotension will be the problem with this stay. He does have an echocardiogram from 2016, which shows grade 1 diastolic dysfunction with normal left ventricular systolic function. I do not believe that he is in decompensated heart failure at this time. Even though his BNP is elevated, that may be an issue with is renal failure. Will get a CT scan of his chest to further elucidate any process that may be going on in his chest at the moment. 3. Patient has history of aspiration and esophageal dysmotility. Has a PEG tube. Will withhold feeds for now. Will hydrate him and will give his medicines through his PEG tube as we are able. 4. Patient has history of dementia and is a resident of [facility]. 5. Patient is DO NOT RESUSCITATE. 6. Deep vein thrombosis (DVT) prophylaxis is ordered in the form of heparin. 7. This patient's condition is grave.
--- NOTE | 2017-01-09 18:56 | REP ---
CT CHEST WITHOUT CONTRAST: 01/09/2017: Comparison: Portable chest 01/09/2017, CT chest 11/07/2016. Clinical history: Hypoxia. Evaluate for pneumonia or other. History of myeloma and renal failure. Unable to obtain surgical history. We do know about a prior stem cell transplant. Technique: Noncontrast CT with coronal and sagittal reconstructions provided. Findings: There are again noted to be extensive areas of consolidation in the right lower lobe less in the left lower lobe but still significant with air bronchograms and consolidative opacity. Underlying COPD and fibrosis. Patchy perihilar atelectasis or infiltrate noted. Stranding densities to the hilum with consolidated atelectasis which could certainly obscure a lung or hilar lesion on either side. The extent of the infiltrate in the right base is slightly less than the Tracy study but is more consolidated than on the left, it is slightly more extensive and more consolidated. Some scattered patchy atelectatic changes in the mid and upper lung zones are as before. Trachea and central airways maintained patency. Cardiomegaly with left atrial enlargement. Heavily calcified mitral annulus noted. There are also calcifications of the aortic valve plane and coronary calcifications along with calcifications in the ascending arch and descending aorta ectasia and tortuosity of the aorta without aneurysm noted. A tortuous aorta displaces the trachea towards the right, but no pathologically sized mediastinal, hilar, axillary or supraclavicular adenopathy. Bone windows show severe osteoporosis, mottling, and compression of multiple levels of the thoracic kyphosis. All of this unchanged from previous study consistent with his known myeloma. I do not see other fractures or destructive lesions. In the upper abdomen there is colonic interposition between the anterior abdominal wall and liver as well as the dome of the diaphragm and liver. This is a normal variation. Clips from prior cholecystectomy are seen. Adrenal glands are normal. There is moderate retained stool in the abdominal portion of the colon. Impression:1. Again seen are bilateral lower lobe infiltrates right greater than left without gross effusion and with patchy areas of atelectasis or infiltrate. Elevated right diaphragm. Air bronchograms are seen in both. Whether this is aspiration or chronic atelectasis with pneumonia, uncertain. 2. Cardiomegaly with left atrial and ventricular enlargement, calcified mitral annulus, tortuous calcified aorta with ectasia but no aneurysm, all stable. 3. Thoracic kyphosis and multiple compression fractures scattered throughout the thoracic spine with demineralization related to the patient's known myeloma. Signed by Hieu Nolen MD 01/09/2017 07:14 P
[2017-01-09] MEDS: NS 1,000 ML IV SCH (19:48)
[2017-01-09 20:00] VITALS: BP 97/58
[2017-01-09] MEDS: HEPARIN SOD (PORCINE) 5000 UNITS/ML VIAL SQ SCH (20:55)
[2017-01-09] MEDS: AZTREONAM 1 GM in D5W MINI-BAG PLUS 50 ML IV SCH (20:55)
[2017-01-09 21:15] LABS: TRIPLE PHOSPHATE CRYSTALS LARGE
[2017-01-09 22:00] VITALS: BP 114/58
[2017-01-10] VITALS (14 sets, daily range): BP systolic 99–134; BP diastolic 55–70; O2SAT 93–95
[2017-01-10] MEDS: AZTREONAM 1 GM in D5W MINI-BAG PLUS 50 ML IV SCH ×3 (04:21→19:20)
[2017-01-10 05:23] LABS: MEAN CORPUSCULAR HEMOGLOBIN 29.9 pg (27.0-33.0); MEAN CORPUSCULAR VOLUME 93.3 fl (80.0-96.0); RED CELL DISTRIBUTION WIDTH 15.2 % (11.5-14.5); WHITE BLOOD COUNT 10.2 K/mm3 (4.0-10.0)
[2017-01-10 05:39] LABS: ALBUMIN 2.4 GM/DL (3.2-5.2); ALBUMIN/GLOBULIN RATIO 0.55 (1.00-1.93); BILIRUBIN,TOTAL 0.2 MG/DL (0.2-1.0); CALCIUM LEVEL 8.3 MG/DL (8.8-10.2); CREATININE FOR GFR 1.65 MG/DL (0.70-1.30); GLOMERULAR FILTRATION RATE 42.8 (>35); MAGNESIUM LEVEL 3.1 MG/DL (1.8-2.4); POTASSIUM SERUM 3.1 MEQ/L (3.5-5.1); TOTAL PROTEIN 6.8 GM/DL (6.4-8.2)
[2017-01-10] MEDS ORDERED: POTASSIUM CHLORIDE 10% LIQ 20 MEQ/15 ML UDC PO ONE (06:15)
[2017-01-10 06:16] LABS: ABG BASE EXCESS 3.7 (-2.0-2.0); ABG HCO3 28.8 MEQ/L (22.0-26.0); ABG PARTIAL PRESSURE O2 71.4 mmHg (75.0-100.0); ABG STANDARD HCO3 27.7 MEQ/L (22.0-26.0); ABG TOTAL CO2 30.2 MEQ/L (23.0-31.0); ABG pH (ARTERIAL) 7.414 UNITS (7.350-7.450)
[2017-01-10] MEDS: LEVOTHYROXINE 0.112 MG TAB (112 MCG) GT SCH (06:27)
[2017-01-10] MEDS: KCL 10MEQ IN 100ML SWI (KRUN) 10 MEQ in APPROPRIATE DILUENT 1 EA IV SCH ×4 (06:27→08:36)
[2017-01-10] MEDS: NS 1,000 ML IV SCH (08:36)
[2017-01-10] MEDS: HEPARIN SOD (PORCINE) 5000 UNITS/ML VIAL SQ SCH ×2 (09:31→21:00)
[2017-01-10] MEDS: LANSOPRAZOLE SUSPENSION 30 MG/10 ML ORAL SYRINGE (FIRST-LANSOPRAZOLE) GT SCH (09:32)
[2017-01-10] MEDS: LACTOBACILLUS ACIDOPHILUS CAP (BACID) GT SCH (09:32)
[2017-01-10] MEDS: SERTRALINE HCL 50 MG TAB GT SCH (09:32)
[2017-01-10] MEDS ORDERED: POTASSIUM CHLORIDE 10% LIQ 20 MEQ/15 ML UDC GT ONE (11:45)
[2017-01-10] MEDS ORDERED: D5W 1,000 ML IV SCH (11:45)
[2017-01-10 16:27] LABS: CALCIUM LEVEL 7.7 MG/DL (8.8-10.2); CREATININE FOR GFR 1.72 MG/DL (0.70-1.30); GLOMERULAR FILTRATION RATE 40.8 (>35); POTASSIUM SERUM 3.8 MEQ/L (3.5-5.1)
[2017-01-10] MEDS: ALBUTEROL SULFATE 2.5 MG/0.5 ML INH NEB SOLN NEB PRN ×2 (18:24→22:05)
--- NOTE | 2017-01-10 19:18 | IPN ---
DATE: 01/10/2017 Mr. Cormier is much more awake and interactive this morning. He denied complaints of pain, chest pain, shortness of breath. He says he is very thirsty and would like a glass of water, of course he does not take anything orally. Temperature 99.6, pulse 72, respiratory rate 28, blood pressure 117/61, 94% on 3 liters nasal cannula. Intake and output notable for a positive fluid balance of 25 yesterday and 840 thus far today. Urine output is 330 since overnight. Weight 84.4 kg with a body mass index of 27.5. He is awake and appropriately interactive, seems to remember me from previous encounters, his is at bedside. Head is normocephalic. Mucous membranes are dry. Neck is supple. He has poor dentition. Breathing is symmetrically diminished with some coarse upper airway sounds noted. I:E ratio is 1:3. Heart is distant sounding, normal S1, S2. He is not tachycardic. Abdomen is soft, doughy, and nontender to deep palpation. White cell count 10.2, hemoglobin 9.6, and platelets of 192. Sodium 148, potassium 3.1, chloride 108, carbon dioxide 29, BUN 74, creatinine 1.65, up from 1.52. Blood and urine cultures are pending. My assessment is as follows: This is an 81-year-old who presented with acute hypercapnic respiratory failure most likely related to underlying infectious cause. Plan will be as follows: 1. Respiratory. Patient is off bilevel positive airway pressure (BiPAP) for now. I believe he may require BiPAP again tonight. He does have a DO NOT RESUSCITATE with a proviso that he would trial BiPAP as needed. The possibility of an aspiration event is likely. Aspiration precautions have been followed. He will need some free water as he is hypernatremic. Will repeat labs this afternoon and then monitor for improvement. Will continue to monitor his urine output which appears to be adequate at the moment and we will repeat labs this afternoon and continue with intravenous (IV) fluid. For now, I have switched it to 5% dextrose in water (D5W) as his blood pressure is reasonably stable. 2. Patient has history of hypertension and a history of grade 1 diastolic dysfunction with normal left ventricular systolic function. This appears to be compensated. 3. Patient has history of aspiration and esophageal dysmotility. Continue to use percutaneous endoscopic gastrostomy (PEG) tube. 4. Patient has history of dementia and is a resident of [facility]. 5. Patient is DO NOT RESUSCITATE with a trial of intubation. 6. Patient has appropriate deep venous thrombosis (DVT) prophylaxis. 7. sepsis in the setting of poss aspiration pneumoia or gram neg pna MTDD
[2017-01-11] VITALS (17 sets, daily range): BP systolic 104–137; BP diastolic 58–79; O2SAT 96–97
[2017-01-11] MEDS ORDERED: D5W/0.45% SODIUM CHLORIDE 1,000 ML IV SCH (01:45)
[2017-01-11] MEDS: VANCOMYCIN ORAL SOL 250MG/5ML ORAL SYRINGE PO SCH ×2 (02:41→06:00)
[2017-01-11] MEDS: AZTREONAM 1 GM in D5W MINI-BAG PLUS 50 ML IV SCH (04:34)
[2017-01-11 05:27] LABS: MEAN CORPUSCULAR HEMOGLOBIN 29.6 pg (27.0-33.0); MEAN CORPUSCULAR HGB CONC 30.9 g/dl (32.0-36.5); MEAN CORPUSCULAR VOLUME 95.9 fl (80.0-96.0); WHITE BLOOD COUNT 8.8 K/mm3 (4.0-10.0)
[2017-01-11 05:44] LABS: ALBUMIN 2.3 GM/DL (3.2-5.2); ALBUMIN/GLOBULIN RATIO 0.52 (1.00-1.93); BILIRUBIN,TOTAL 0.2 MG/DL (0.2-1.0); CREATININE FOR GFR 1.62 MG/DL (0.70-1.30); GLOMERULAR FILTRATION RATE 43.8 (>35); MAGNESIUM LEVEL 3.1 MG/DL (1.8-2.4); POTASSIUM SERUM 3.6 MEQ/L (3.5-5.1); TOTAL PROTEIN 6.7 GM/DL (6.4-8.2)
[2017-01-11] MEDS: LEVOTHYROXINE 0.112 MG TAB (112 MCG) GT SCH (06:45)
[2017-01-11] MEDS: HEPARIN SOD (PORCINE) 5000 UNITS/ML VIAL SQ SCH ×2 (09:00→21:26)
[2017-01-11] MEDS: SERTRALINE HCL 50 MG TAB GT SCH (09:54)
[2017-01-11] MEDS: LANSOPRAZOLE SUSPENSION 30 MG/10 ML ORAL SYRINGE (FIRST-LANSOPRAZOLE) GT SCH (09:54)
[2017-01-11] MEDS: LACTOBACILLUS ACIDOPHILUS CAP (BACID) GT SCH (09:54)
[2017-01-11] MEDS: D5W 1,000 ML IV SCH ×2 (09:55→20:18)
[2017-01-11] MEDS: cefTRIAXone SOD 1 GM in D5W MINI-BAG PLUS 50 ML IV SCH ×2 (10:10→21:26)
[2017-01-11] MEDS: VANCOMYCIN ORAL SOL 250MG/5ML ORAL SYRINGE PEG SCH ×2 (12:58→17:40)
[2017-01-11 16:27] LABS: CALCIUM LEVEL 8.2 MG/DL (8.8-10.2); CREATININE FOR GFR 1.32 MG/DL (0.70-1.30); GLOMERULAR FILTRATION RATE 55.4 (>35); POTASSIUM SERUM 2.5 MEQ/L (3.5-5.1)
--- NOTE | 2017-01-11 16:45 | REP ---
AP PORTABLE CHEST: 01/09/2017 at 01:46 PM. Comparison: Portable chest 01/09/2017, CT chest 11/07/2016. Clinical history: Dyspnea and cough. Findings: Very poor inflation. The mandible not there is a right apex. No gross effusion on the left. There is patchy infiltrate or atelectasis and elevated right diaphragm again seen. Colonic interposition between the dome of the diaphragm and liver is again seen. Cardiomegaly and enlargement of the cardiac silhouette further by low level of inflation. No other finding. Please note this exam is a redictation as my original dictation could not be retrieved from the voice bank. I gave a typed wet reading to the ICU at 02:11 PM shortly after the examination. Signed by Hieu Nolen MD 01/11/2017 04:37 P
[2017-01-11] MEDS ORDERED: POTASSIUM CHLORIDE 10% LIQ 20 MEQ/15 ML UDC PO ONE (17:15)
[2017-01-11] MEDS: KCL 10MEQ IN 100ML SWI (KRUN) 10 MEQ in APPROPRIATE DILUENT 1 EA IV SCH ×8 (17:34→21:28)
[2017-01-12] VITALS (13 sets, daily range): BP systolic 107–140; BP diastolic 55–74; O2SAT 97
[2017-01-12] MEDS: VANCOMYCIN ORAL SOL 250MG/5ML ORAL SYRINGE PEG SCH ×4 (00:36→18:18)
--- NOTE | 2017-01-12 00:36 | IPN ---
DATE: 01/11/2017 Mr. Cormier is less interactive this morning. He began stooling last night, has been found to have Clostridium difficile (C diff). He is on bilevel positive airway pressure (BiPAP). Temperature is 98.8, pulse 65, respiratory rate 111/59, 97% on 35% FiO2. Positive fluid balance of 1890, three bowel movements yesterday, three thus far today. He is sleepy but arousable. Mucous membranes are moist. Neck is supple. Breathing is symmetrical and rested. Abdomen is soft, doughy, nontender. Heart is distant sounding. Normal S1, S2. No significant lower extremity edema. White count 8.8, hemoglobin 9.0 and platelets of 177. Sodium is 150, potassium 3.6, chloride 111, carbon dioxide 31, BUN 69 and creatinine 1.6. Blood culture negative at 24 hours. Urine has grown Proteus, sensitive to ceftriaxone. ASSESSMENT: This is an 81-year-old who presented with acute hypercapnic respiratory failure related to underlying infectious cause; at this point, most likely urinary tract infection. PLAN: 1. Respiratory. The patient is back on bilevel positive airway pressure (BiPAP). He is likely requiring BiPAP due to his electrolyte and fluid status, and possibly related to his underlying infection. Aspirations precautions are being maintained. 2. The patient has hypernatremia, which is worsening. Will change his IV fluid to D5W. Continue with his feeds. For now, repeat labs this afternoon. He is having adequate urine output. 3. The patient has a history of hypertension and grade 1 diastolic dysfunction. This would appear to be compensated at this point. 4. The patient has a history of aspiration esophageal dysmotility. Continuing to use his percutaneous endoscopic gastrostomy (PEG) tube. 5. The patient has a history of dementia and is a resident of [facility]. 6. The patient has DO NOT RESUSCITATE (DNR) with a trial of intubation using BiPAP only. 7. The patient has appropriate deep vein thrombosis (DVT) prophylaxis. 8. sepsis in the setting of poss aspiration pneumoia or gram neg pna- improving MTDD
[2017-01-12 04:45] LABS: MEAN CORPUSCULAR HEMOGLOBIN 30.5 pg (27.0-33.0); MEAN CORPUSCULAR HGB CONC 32.2 g/dl (32.0-36.5); MEAN CORPUSCULAR VOLUME 94.6 fl (80.0-96.0); RED CELL DISTRIBUTION WIDTH 12.5 % (11.5-14.5); WHITE BLOOD COUNT 8.9 K/mm3 (4.0-10.0)
[2017-01-12 05:00] LABS: ALBUMIN/GLOBULIN RATIO 0.44 (1.00-1.93); ALKALINE PHOSPHATASE 82 U/L (45-117); ALT/SGPT 32 U/L (12-78); ANION GAP 8 MEQ/L (8-16); AST/SGOT 30 U/L (15-37); BILIRUBIN,TOTAL 0.2 MG/DL (0.2-1.0); BLOOD UREA NITROGEN 43 MG/DL (7-18); CALCIUM LEVEL 7.3 MG/DL (8.8-10.2); CARBON DIOXIDE LEVEL 27 MEQ/L (21-32); CHLORIDE LEVEL 109 MEQ/L (98-107); CREATININE FOR GFR 1.18 MG/DL (0.70-1.30); GLOMERULAR FILTRATION RATE > 60.0 (>35); GLUCOSE, FASTING 90 MG/DL (83-110); MAGNESIUM LEVEL 2.3 MG/DL (1.8-2.4); POTASSIUM SERUM 2.6 MEQ/L (3.5-5.1); SODIUM LEVEL 144 MEQ/L (136-145); TOTAL PROTEIN 6.5 GM/DL (6.4-8.2)
[2017-01-12] MEDS ORDERED: POTASSIUM CHL PWD 20 MEQ PACKET PO ONE (05:45)
[2017-01-12] MEDS: LEVOTHYROXINE 0.112 MG TAB (112 MCG) GT SCH (05:55)
[2017-01-12] MEDS: KCL 10MEQ IN 100ML SWI (KRUN) 10 MEQ in APPROPRIATE DILUENT 1 EA IV SCH ×20 (05:55→20:34)
[2017-01-12] MEDS: LACTOBACILLUS ACIDOPHILUS CAP (BACID) GT SCH (09:38)
[2017-01-12] MEDS: SERTRALINE HCL 50 MG TAB GT SCH (09:39)
[2017-01-12] MEDS: LANSOPRAZOLE SUSPENSION 30 MG/10 ML ORAL SYRINGE (FIRST-LANSOPRAZOLE) GT SCH (09:39)
[2017-01-12] MEDS: HEPARIN SOD (PORCINE) 5000 UNITS/ML VIAL SQ SCH ×2 (09:39→21:49)
[2017-01-12] MEDS: cefTRIAXone SOD 1 GM in D5W MINI-BAG PLUS 50 ML IV SCH ×2 (09:40→22:01)
[2017-01-12] MEDS: D5W 1,000 ML IV SCH (11:59)
[2017-01-12 12:58] LABS: ANION GAP 9 MEQ/L (8-16); BLOOD UREA NITROGEN 35 MG/DL (7-18); CALCIUM LEVEL 7.2 MG/DL (8.8-10.2); CARBON DIOXIDE LEVEL 28 MEQ/L (21-32); CHLORIDE LEVEL 107 MEQ/L (98-107); CREATININE FOR GFR 1.15 MG/DL (0.70-1.30); GLOMERULAR FILTRATION RATE > 60.0 (>35); GLUCOSE, FASTING 93 MG/DL (83-110); POTASSIUM SERUM 2.8 MEQ/L (3.5-5.1); SODIUM LEVEL 144 MEQ/L (136-145)
[2017-01-12] MEDS ORDERED: POTASSIUM CHLORIDE 10% LIQ 20 MEQ/15 ML UDC PO ONE (14:00)
[2017-01-12] MEDS ORDERED: POTASSIUM CHLORIDE 10% LIQ 20 MEQ/15 ML UDC PEG ONE (19:00)
[2017-01-12] MEDS: KCL 40MEQ IN D5/0.45NS 1000ML 1,000 ML IV SCH (19:45)
[2017-01-12] MEDS ORDERED: KCL 10MEQ IN 100ML SWI (KRUN) 10 MEQ in APPROPRIATE DILUENT 1 EA IV SCH ×2 (20:00)
[2017-01-12 20:39] LABS: ANION GAP 7 MEQ/L (8-16); BLOOD UREA NITROGEN 32 MG/DL (7-18); CARBON DIOXIDE LEVEL 28 MEQ/L (21-32); CHLORIDE LEVEL 108 MEQ/L (98-107); CREATININE FOR GFR 1.05 MG/DL (0.70-1.30); GLOMERULAR FILTRATION RATE > 60.0 (>35); GLUCOSE, FASTING 146 MG/DL (83-110); MAGNESIUM LEVEL 2.1 MG/DL (1.8-2.4); POTASSIUM SERUM 3.4 MEQ/L (3.5-5.1); SODIUM LEVEL 143 MEQ/L (136-145)
[2017-01-13] VITALS (7 sets, daily range): BP systolic 93–139; BP diastolic 58–73
[2017-01-13] MEDS: VANCOMYCIN ORAL SOL 250MG/5ML ORAL SYRINGE PEG SCH ×5 (00:18→23:42)
[2017-01-13 00:38] LABS: ANION GAP 8 MEQ/L (8-16); BLOOD UREA NITROGEN 29 MG/DL (7-18); CARBON DIOXIDE LEVEL 25 MEQ/L (21-32); CHLORIDE LEVEL 110 MEQ/L (98-107); CREATININE FOR GFR 1.02 MG/DL (0.70-1.30); GLOMERULAR FILTRATION RATE > 60.0 (>35); GLUCOSE, FASTING 89 MG/DL (83-110); MAGNESIUM LEVEL 2.2 MG/DL (1.8-2.4); POTASSIUM SERUM 3.5 MEQ/L (3.5-5.1); SODIUM LEVEL 143 MEQ/L (136-145)
[2017-01-13 00:46] LABS: CALCIUM LEVEL 8.1 MG/DL (8.8-10.2)
[2017-01-13] MEDS: ALBUTEROL SULFATE 2.5 MG/0.5 ML INH NEB SOLN NEB PRN (01:43)
[2017-01-13 04:37] LABS: MEAN CORPUSCULAR HGB CONC 31.3 g/dl (32.0-36.5); MEAN CORPUSCULAR VOLUME 95.9 fl (80.0-96.0); RED CELL DISTRIBUTION WIDTH 14.6 % (11.5-14.5); WHITE BLOOD COUNT 8.4 K/mm3 (4.0-10.0)
[2017-01-13 04:57] LABS: ALBUMIN/GLOBULIN RATIO 0.44 (1.00-1.93); ALKALINE PHOSPHATASE 80 U/L (45-117); ALT/SGPT 25 U/L (12-78); ANION GAP 7 MEQ/L (8-16); AST/SGOT 24 U/L (15-37); BILIRUBIN,TOTAL 0.2 MG/DL (0.2-1.0); BLOOD UREA NITROGEN 26 MG/DL (7-18); CALCIUM LEVEL 7.2 MG/DL (8.8-10.2); CARBON DIOXIDE LEVEL 26 MEQ/L (21-32); CHLORIDE LEVEL 112 MEQ/L (98-107); CREATININE FOR GFR 1.08 MG/DL (0.70-1.30); GLOMERULAR FILTRATION RATE > 60.0 (>35); GLUCOSE, FASTING 101 MG/DL (83-110); MAGNESIUM LEVEL 2.1 MG/DL (1.8-2.4); POTASSIUM SERUM 3.3 MEQ/L (3.5-5.1); SODIUM LEVEL 145 MEQ/L (136-145); TOTAL PROTEIN 6.5 GM/DL (6.4-8.2)
[2017-01-13] MEDS: LEVOTHYROXINE 0.112 MG TAB (112 MCG) GT SCH (06:06)
[2017-01-13] MEDS ORDERED: POTASSIUM CHLORIDE 10% LIQ 20 MEQ/15 ML UDC PEG ONE (09:00)
[2017-01-13] MEDS: LANSOPRAZOLE SUSPENSION 30 MG/10 ML ORAL SYRINGE (FIRST-LANSOPRAZOLE) GT SCH (09:06)
[2017-01-13] MEDS: LACTOBACILLUS ACIDOPHILUS CAP (BACID) GT SCH (09:06)
[2017-01-13] MEDS: SERTRALINE HCL 50 MG TAB GT SCH (09:06)
[2017-01-13] MEDS: HEPARIN SOD (PORCINE) 5000 UNITS/ML VIAL SQ SCH ×2 (09:07→21:31)
[2017-01-13] MEDS: CHOLESTYRAMINE 4 GM PWD PKT PEG SCH ×2 (10:14→21:31)
[2017-01-13] MEDS: cefTRIAXone SOD 1 GM in D5W MINI-BAG PLUS 50 ML IV SCH ×2 (10:14→21:31)
[2017-01-13] MEDS: KCL 40MEQ IN D5/0.45NS 1000ML 1,000 ML IV SCH (12:07)
--- NOTE | 2017-01-13 17:02 | IPN ---
DATE: 01/12/2017 Mr. Cormier is awake and interactive this morning. No complaints of pain. No chest pain, not short of breath, not particularly hungry or thirsty. Temperature is 98.9, pulse 78, respiratory rate 22, blood pressure 116/56, 95% on 3 liters. Intake and output notable for a negative fluid balance of -2515, nine bowel movements yesterday. He is awake, appropriately interactive, answering questions, I am unclear that he understands completely the more complicated questions based on his response. Breathing is symmetrical with upper airway sounds throughout. He has cough with deep breathing. No accessory muscle use. Speaking in short sentences. Heart is not tachycardic. Normal S1, S2. Radial pulses 2+. Capillary refill is less than 2 seconds. Abdomen is soft, hyperactive bowel sounds, nontender. Trace bilateral lower extremity edema. White count 8.9, hemoglobin 11, platelets 202. Sodium 144, potassium 2.8, chloride 107, carbon dioxide 28, BUN 35, creatinine 1.1. My assessment is as follows: This is an 81-year-old status post sepsis event related to Proteus urinary tract infection, now with Clostridium (C) difficile and intermittent need for bilevel positive airway pressure (BiPAP) to address respiratory acidosis due to hypercapnia. Plan will be as follows: 1. Respiratory. The patient still requires BiPAP intermittently while napping and sleeping. He has had difficulty tolerating BiPAP. I would anticipate that he will probably need BiPAP again tonight and then perhaps tomorrow that will resolve. He is continued on aspiration precautions related to his known high aspiration risk. 2. Infectious disease. Patient has known Proteus urinary tract infection, most likely the cause of presenting sepsis. He is on ceftriaxone which he is appearing to tolerate despite his PENICILLIN allergy. Will continue with the current course of care. Patient has unfortunately developed diffuse stools and Clostridium (C) difficile as well, which is recurrent, and has been started on vancomycin, which he is tolerating. 3. Patient has resolved hypernatremia and has resolved his acute renal failure. Unfortunately, he has developed hypokalemia, most likely related to his excessive stooling, this will be repleted. 4. Patient has history of hypertension and grade 1 diastolic dysfunction which appears to be compensated. Blood pressure is on the low side of controlled. 5. Patient has history of aspiration and esophageal dysmotility. Continuing his Osmolite 1.2 per percutaneous endoscopic gastrostomy (PEG) tube. 6. Patient has history of dementia and is a resident of [facility]. 7. Patient has a DO NOT RESUSCITATE. We attempted to have a discussion about do not resuscitate today with the patient and then with the patient and his . It is unclear that the patient is able to make reasonable decisions at this point and will continue with the current plan of DO NOT RESUSCITATE with a trial of BiPAP as needed, which is what we are currently doing. 8. Patient has appropriate deep venous thrombosis (DVT) prophylaxis.
[2017-01-13 18:12] LABS: ANION GAP 7 MEQ/L (8-16); BLOOD UREA NITROGEN 26 MG/DL (7-18); CALCIUM LEVEL 7.4 MG/DL (8.8-10.2); CARBON DIOXIDE LEVEL 26 MEQ/L (21-32); CHLORIDE LEVEL 114 MEQ/L (98-107); CREATININE FOR GFR 1.23 MG/DL (0.70-1.30); GLOMERULAR FILTRATION RATE > 60.0 (>35); GLUCOSE, FASTING 145 MG/DL (83-110); POTASSIUM SERUM 3.6 MEQ/L (3.5-5.1); SODIUM LEVEL 147 MEQ/L (136-145)
[2017-01-14 06:00] VITALS: BP 127/67
[2017-01-14] MEDS ORDERED: NYSTATIN CREAM 15 GM TOP PRN (06:00)
[2017-01-14] MEDS: VANCOMYCIN ORAL SOL 250MG/5ML ORAL SYRINGE PEG SCH (06:31)
[2017-01-14] MEDS: KCL 40MEQ IN D5/0.45NS 1000ML 1,000 ML IV SCH (06:32)
[2017-01-14] MEDS: LEVOTHYROXINE 0.112 MG TAB (112 MCG) GT SCH (06:32)
[2017-01-14 07:02] LABS: ALBUMIN 2.1 GM/DL (3.2-5.2); ALBUMIN/GLOBULIN RATIO 0.53 (1.00-1.93); BILIRUBIN,TOTAL 0.1 MG/DL (0.2-1.0); CALCIUM LEVEL 7.4 MG/DL (8.8-10.2); CREATININE FOR GFR 1.34 MG/DL (0.70-1.30); GLOMERULAR FILTRATION RATE 54.5 (>35); MAGNESIUM LEVEL 1.8 MG/DL (1.8-2.4); POTASSIUM SERUM 3.3 MEQ/L (3.5-5.1); TOTAL PROTEIN 6.1 GM/DL (6.4-8.2)
[2017-01-14] MEDS: HEPARIN SOD (PORCINE) 5000 UNITS/ML VIAL SQ SCH (09:59)
[2017-01-14] MEDS: LANSOPRAZOLE SUSPENSION 30 MG/10 ML ORAL SYRINGE (FIRST-LANSOPRAZOLE) GT SCH (09:59)
[2017-01-14] MEDS: LACTOBACILLUS ACIDOPHILUS CAP (BACID) GT SCH (10:00)
[2017-01-14] MEDS: CHOLESTYRAMINE 4 GM PWD PKT PEG SCH ×2 (10:00→18:07)
[2017-01-14] MEDS: SERTRALINE HCL 50 MG TAB GT SCH (10:00)
[2017-01-14] MEDS: cefTRIAXone SOD 1 GM in D5W MINI-BAG PLUS 50 ML IV SCH ×2 (10:01→21:50)
[2017-01-14] MEDS ORDERED: POTASSIUM CHLORIDE 10% LIQ 20 MEQ/15 ML UDC PEG ONE (10:15)
--- NOTE | 2017-01-14 11:02 | IPN ---
DATE: 01/14/2017 Mr. Cormier is feeling well today. He has no complaints. Unfortunately, the rectal tubes that we had been using yesterday stopped functioning. He is still having multiple stools in his backside. It is quite reddened from the irritation, but he has no complaints of pain, chest pain, shortness of breath. He is not hungry or thirsty. Temperature is 97.9, pulse 90, respiratory rate 24, blood pressure 127/67, 98% on 3 liters. Intake and output notable for a negative fluid balance of minus 265. Three bowel movements noted today thus far. He is awake, appropriately interactive, remembers me from previous encounter. His mucous membranes are moist, neck nontender. Breathing is symmetrical with coarse upper airway sounds throughout. No accessory muscle use. He is not tachypneic. Heart is distant sounding. Normal S1 and S2. Radial pulses 2+. Capillary refill is less than 2 seconds. Abdomen is soft, hyperactive bowel sounds, nontender to deep palpation. No significant lower extremity edema. White cell count 8.4, hemoglobin 9.1 and platelets of 199. BUN is 26, creatinine 1.34, slightly increased from yesterday, potassium is 3.3. My assessment is as follows: This is an 81-year-old status post sepsis event now with Clostridium (C) difficile colitis and resolved hypercapnic respiratory failure. Plan will be as follows: 1. Respiratory. Patient no longer requires bilevel positive airway pressure (BiPAP). He is on the medical floor. He is receiving oxygen as needed and continues on aspiration precautions related to his known high aspiration risk. 2. Infectious disease. Patient has Proteus urinary tract infection. I recommend two more days of antibiotics, and also has C difficile colitis with severe stooling. Have increased his cholestyramine. Will switch him to Dificid to see if that resolves the stooling more quickly. He is on Osmolite feeds via percutaneous endoscopic gastrostomy (PEG) tube, which can also give him loose stools. 3. Patient has hypernatremia, which has resolved. 4. Patient does have hypokalemia, which will be repleted. He is on IV fluids containing potassium. He will be given potassium via his PEG tube today. Repeat labs later today. 5. Patient has history of hypertension and grade 1 diastolic dysfunction. He appears to be compensated. 6. Patient has history of aspiration and esophageal dysmotility. He has a PEG tube and receives feeds by that route. 7. Patient has history of dementia, is a resident of the [facility]. 8. Patient has a doting , who is frequently at bedside, although was not at bedside today. 9. Patient has a DO NOT RESUSCITATE. He is willing to trial BiPAP but would not want intubation, according to the family, Javier does not seem to be able to make these decision for himself at this point. 10. Patient has appropriate deep venous thrombosis (DVT) prophylaxis. 11. Patient's backside will need to be monitored for evidence of skin breakdown. We will look to control his stooling and continue with normal nursing care as far as turning and positioning. Attempt to limit this risk. His nutrition has been restarted at a full dose in an attempt to help with this as well. MTDD
[2017-01-14] MEDS: FIDAXOMICIN 200 MG TAB (DIFICID) PEG SCH ×2 (12:17→21:50)
[2017-01-14 14:00] VITALS: BP 135/70
[2017-01-14 16:24] LABS: CALCIUM LEVEL 7.8 MG/DL (8.8-10.2); CREATININE FOR GFR 1.41 MG/DL (0.70-1.30); GLOMERULAR FILTRATION RATE 51.4 (>35); POTASSIUM SERUM 3.2 MEQ/L (3.5-5.1)
[2017-01-14] MEDS ORDERED: POTASSIUM CHLORIDE 10% LIQ 20 MEQ/15 ML UDC PO ONE (17:45)
[2017-01-14] MEDS: KCL 40MEQ IN D5/NS 1000ML 1,000 ML IV SCH (19:44)
[2017-01-14] MEDS: ALBUTEROL SULFATE 2.5 MG/0.5 ML INH NEB SOLN NEB PRN (20:24)
--- NOTE | 2017-01-14 21:17 | IPN ---
DATE: 01/13/2017 Mr. Cormier is feeling a little better this morning. He is still having a lot of stools. A rectal tube was actually placed yesterday. No complaints of abdominal pain, no chest pain, no shortness of breath. He did not need his BiPAP last night. Temperature is 97.1, pulse 82, respiratory rate 20, blood pressure 120/60, 97% on 3 liters. Intake and output notable for a positive fluid balance of 1310, 10 bowel movements yesterday, plus his stool output of 200 by rectal tube. Weight 79.5 kg with body mass index (BMI) of 25.9. He is awake, appropriately interactive. Remembers me from previous encounters. Mucous membranes are tachy. Neck supple. Breathing is symmetrical with coarse upper airway sounds. No accessory muscle use. Heart is in a regular rate and rhythm. Distant sounding. Abdomen is soft, hyperactive bowel sounds. Nontender, flat. White cell count 8.4, hemoglobin 9.1, platelets of 199. BUN 26, creatine 1.08, potassium 3.3. Magnesium is 2.1. My assessment is as follows: This is an 81-year-old gentleman with acute hypercapnic respiratory failure related to underlying infectious cause, most likely urinary tract infection. Plans as follows: 1. Respiratory. The patient is much improved. He is requiring supplemental oxygen, but will no longer wear a BiPAP. Can be transferred to medication-surg. He has known aspiration risks, aspiration precautions are being maintained. I did discuss this with nursing staff at bedside in the intensive care unit (ICU) and on med-surg. 2. The patient has resolved hypernatremia. He is on chronic percutaneous endoscopic gastrostomy (PEG) tube feeds. I have taken the recommendations from nutrition and have adjusted his feds accordingly. 3. The patient has a history of hypertension, grade I diastolic dysfunction, which appears to be compensated. 4. The patient has Clostridium difficile colitis. He is on vancomycin. He is having excessive stooling. He has a rectal tube in temporarily. Will add some Questran. 5. The patient has dementia, is a resident of [facility]. 6. The patient is a DO NOT RESUSCITATE with trial of intubation using BiPAP only. 7. The patient has appropriate deep vein thrombosis (DVT) prophylaxis. 8. The patient's infectious etiology at the time of presentation was urinary tract infection due to proteus and he is tolerating ceftriaxone despite his PENICILLIN allergy. 9. Please note this dictation is somewhat limited as yesterday's dictation is yet to be transcribed.
[2017-01-14 22:00] VITALS: BP 121/69
[2017-01-15] MEDS: CHOLESTYRAMINE 4 GM PWD PKT PEG SCH ×4 (00:11→17:11)
[2017-01-15 06:00] VITALS: BP 141/80
[2017-01-15 06:32] LABS: MEAN CORPUSCULAR HEMOGLOBIN 29.9 pg (27.0-33.0); MEAN CORPUSCULAR HGB CONC 31.6 g/dl (32.0-36.5); MEAN CORPUSCULAR VOLUME 94.5 fl (80.0-96.0); RED CELL DISTRIBUTION WIDTH 14.7 % (11.5-14.5)
[2017-01-15] MEDS: LEVOTHYROXINE 0.112 MG TAB (112 MCG) GT SCH (06:39)
[2017-01-15 06:44] LABS: ALBUMIN 2.1 GM/DL (3.2-5.2); ALBUMIN/GLOBULIN RATIO 0.43 (1.00-1.93); BILIRUBIN,TOTAL 0.1 MG/DL (0.2-1.0); CALCIUM LEVEL 7.8 MG/DL (8.8-10.2); CREATININE FOR GFR 1.36 MG/DL (0.70-1.30); GLOMERULAR FILTRATION RATE 53.5 (>35); MAGNESIUM LEVEL 1.7 MG/DL (1.8-2.4); POTASSIUM SERUM 3.4 MEQ/L (3.5-5.1)
[2017-01-15] MEDS: LACTOBACILLUS ACIDOPHILUS CAP (BACID) GT SCH (08:43)
[2017-01-15] MEDS: SERTRALINE HCL 50 MG TAB GT SCH (08:43)
[2017-01-15] MEDS: FIDAXOMICIN 200 MG TAB (DIFICID) PEG SCH ×2 (08:43→21:19)
[2017-01-15] MEDS: LANSOPRAZOLE SUSPENSION 30 MG/10 ML ORAL SYRINGE (FIRST-LANSOPRAZOLE) GT SCH (08:44)
[2017-01-15] MEDS: KCL 40MEQ IN D5/NS 1000ML 1,000 ML IV SCH ×2 (08:44→21:18)
[2017-01-15] MEDS ORDERED: MAG SULF 1GM/100ML (MAG RUN) 1 GM in APPROPRIATE DILUENT 1 EA IV ONE (09:00)
[2017-01-15] MEDS: cefTRIAXone SOD 1 GM in D5W MINI-BAG PLUS 50 ML IV SCH (10:26)
--- NOTE | 2017-01-15 11:18 | IPNPDOC ---
Subjective Date Seen The patient was seen on 01/15/17. Subjective Chief Complaint/HPI The patient is a 81-year-old male admitted with a reason for visit of Acute Respiratory Acidosis. Events since last encounter Poor historian. General: Denies: Chills, Fatigue, Malaise, Night Sweats, Normal Appetite, Other Symptoms, ROS Unobtainable Constitutional: Denies: Chills, Fatigue, Fever, Lethargy, Malaise, Night Sweats , Other, Weakness, Weight Loss Eyes: Denies: Conjunctivae inflammation, Eyelid inflammation, Other, Pain, Redness, Vision change ENT: Denies: Dysphagia, Ear Pain, Epistaxis, Head Aches, Other Symptoms, Post Nasal Drip, Sinus Congestion, Sore Throat Skin: Denies: Breakdown, Bruising, Dry, Itching, Jaundice, Lesions, Nail Changes, Other, Rash Pulmonary: Denies: Cough, Dyspnea, Other Symptoms, Pleuritic Chest Pain Cardiovascular: Denies: Chest Pain, Edema, Lt Headedness, Orthopnea, Other Symptoms, Palpitations, Paroxysmal Noc. Dyspnea Gastrointestinal: Denies: Abdominal Pain, Constipation, Diarrhea, Hematochezia , Melena, Nausea, Other Symptoms, Vomiting Genitourinary: Denies: Dysuria, Frequency, Hematuria, Incontinence, Other Symptoms, Retention Endocrine: Reports: Polyuria, Denies: Cold Intolerance, Heat Intolerance, Other Endocrine Sx, Polydipsia, Polyphagia Objective Physical Examination General Exam: Positive: Alert, Cooperative, No Acute Distress Eye Exam: Positive: PERRLA, Negative: Sclera icteric ENT Exam: Positive: Atraumatic, Mucous membr. moist/pink, Other ENT (edentulous ) Neck Exam: Positive: Supple Chest Exam: Positive: Clear to auscultation, Normal air movement Heart Exam: Positive: Rate Normal, Regular Rhythm Abdomen Exam: Positive: Normal bowel sounds, Soft, Negative: Tenderness Extremity Exam: Negative: Edema Psych Exam: Negative: Oriented x 3 Assessment /Plan Problems (1) Urinary retention Status: Chronic Problem Specific Plan: Monitor Clinically Problem Text: Chronic angel cather. (2) UTI (urinary tract infection) Status: Chronic Problem Specific Plan: Monitor Clinically, Repeat Labs, Repeat Tests Problem Text: Recurrent UTI's. Ceftriaxone discontinued. Suprapubic catheter? (3) C. difficile diarrhea Status: Acute Problem Specific Plan: Consult Specialist, Repeat Labs Problem Text: Continue Dificid. Discontinued ceftriaxone. (4) HTN (hypertension) Status: Chronic Problem Specific Plan: Monitor Clinically Problem Text: As per medical history. (5) HLD (hyperlipidemia) Status: Chronic (6) Hypothyroidism Status: Chronic Problem Text: Continue synthroid. 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 (9) Esophageal dysmotility Status: Chronic Problem Specific Plan: Monitor Clinically Problem Text: s/p PEG tube (10) Swallowing dysfunction Status: Chronic Problem Specific Plan: Monitor Clinically Problem Text: S/P PEG, secondary to esophageal dysmotility (11) Dementia Status: Chronic (12) Depression Status: Chronic Problem Text: Continue Zoloft. Plan/VTE VTE Prophylaxis Ordered?: Yes Plan Diet: Make NPO Activity: Continue Current Medications: Taper Antibiotics Diagnostics: Repeat Labs in AM, Obtain Cultures VS, I&O, 24H, [facility] Vital Signs/I&O Vital Signs Date Time Temp Pulse Resp B/P Pulse Ox O2 Delivery O2 Flow Rate FiO2 01/15/17 06:00 97.3 105 24 141/80 92 Nasal Cannula 3.0 01/12/17 03:00 35 I&O- Last 24 Hours up to 6 AM 01/15/17 06:00 Intake Total 2660 ml Output Total 2175 ml Balance 485 ml Laboratory Data 24H LABS Laboratory Tests 2 01/14/17 15:51: Anion Gap 7L, Blood Urea Nitrogen 26H, Creatinine 1.41H, Sodium Level 142, Potassium Level 3.2L, Chloride Level 110H, Carbon Dioxide Level 25, Calcium Level 7.8L, Glomerular Filtration Rate 51.4 01/15/17 06:14: Anion Gap 8, Blood Urea Nitrogen 22H, Creatinine 1.36H, Sodium Level 144, Potassium Level 3.4L, Chloride Level 113H, Carbon Dioxide Level 23, Calcium Level 7.8L, Glomerular Filtration Rate 53.5, Aspartate Amino Transf (AST/SGOT) 39H, Alanine Aminotransferase (ALT/SGPT) 41, Alkaline Phosphatase 124H, Total Bilirubin 0.1L, Total Protein 7.0, Albumin 2.1L, Albumin/Globulin Ratio 0.43L, Magnesium Level 1.7L CBC/BMP Laboratory Tests 01/14/17 15:51 Calcium Level 7.8 L 01/15/17 06:14 Calcium Level 7.8 L, Aspartate Amino Transf (AST/SGOT) 39 H, Alanine Aminotransferase (ALT/SGPT) 41, Alkaline Phosphatase 124 H, Total Bilirubin 0.1 L, Total Protein 7.0, Albumin 2.1 L, Red Blood Count 3.16 L, Mean Corpuscular Volume 94.5, Mean Corpuscular Hemoglobin 29.9, Mean Corpuscular Hemoglobin Concent 31.6 L, Red Cell Distribution Width 14.7 H Microbiology Microbiology 01/09/17 Blood Culture - Final, Complete NO GROWTH AFTER 5 DAYS 01/09/17 Blood Culture - Final, Complete NO GROWTH AFTER 5 DAYS 01/10/17 Gastrointestinal Tract Panel (PCR) - Final, Complete Clostridium Difficile A/B 01/09/17 Urine Culture - Final, Complete Proteus Mirabilis GARETH ODONNELL MD Jan 15, 2017 11:18
[2017-01-15 14:00] VITALS: BP 146/72
[2017-01-15] MEDS: HEPARIN SOD (PORCINE) 5000 UNITS/ML VIAL SQ SCH (21:19)
[2017-01-15 22:00] VITALS: BP 140/82
[2017-01-16] MEDS: CHOLESTYRAMINE 4 GM PWD PKT PEG SCH ×5 (00:45→23:26)
[2017-01-16 06:00] VITALS: BP 138/76
[2017-01-16] MEDS: LEVOTHYROXINE 0.112 MG TAB (112 MCG) GT SCH (07:09)
[2017-01-16 07:24] LABS: MEAN CORPUSCULAR HEMOGLOBIN 30.1 pg (27.0-33.0); MEAN CORPUSCULAR HGB CONC 31.6 g/dl (32.0-36.5); MEAN CORPUSCULAR VOLUME 95.2 fl (80.0-96.0); WHITE BLOOD COUNT 8.6 K/mm3 (4.0-10.0)
[2017-01-16] MEDS: LACTOBACILLUS ACIDOPHILUS CAP (BACID) GT SCH ×2 (07:56→23:26)
[2017-01-16] MEDS: SERTRALINE HCL 50 MG TAB GT SCH (07:57)
[2017-01-16] MEDS: FIDAXOMICIN 200 MG TAB (DIFICID) PEG SCH ×2 (07:57→20:11)
[2017-01-16] MEDS: LANSOPRAZOLE SUSPENSION 30 MG/10 ML ORAL SYRINGE (FIRST-LANSOPRAZOLE) GT SCH (07:57)
[2017-01-16] MEDS: HEPARIN SOD (PORCINE) 5000 UNITS/ML VIAL SQ SCH ×2 (07:58→20:11)
[2017-01-16] MEDS: KCL 40MEQ IN D5/NS 1000ML 1,000 ML IV SCH (07:58)
[2017-01-16 08:13] LABS: ALBUMIN 2.2 GM/DL (3.2-5.2); ALBUMIN/GLOBULIN RATIO 0.58 (1.00-1.93); BILIRUBIN,TOTAL 0.2 MG/DL (0.2-1.0); CALCIUM LEVEL 7.2 MG/DL (8.8-10.2); CREATININE FOR GFR 1.26 MG/DL (0.70-1.30); GLOMERULAR FILTRATION RATE 58.5 (>35); MAGNESIUM LEVEL 1.8 MG/DL (1.8-2.4); POTASSIUM SERUM 3.6 MEQ/L (3.5-5.1)
--- NOTE | 2017-01-16 08:57 | IPNPDOC ---
Subjective Date Seen The patient was seen on 01/16/17. Subjective Chief Complaint/HPI The patient is a 81-year-old male admitted with a reason for visit of Acute Respiratory Acidosis. General: Denies: Chills, Fatigue, Malaise, Night Sweats, Normal Appetite, Other Symptoms, ROS Unobtainable Constitutional: Denies: Chills, Fatigue, Fever, Lethargy, Malaise, Night Sweats , Other, Weakness, Weight Loss Eyes: Denies: Conjunctivae inflammation, Eyelid inflammation, Other, Pain, Redness, Vision change ENT: Denies: Dysphagia, Ear Pain, Epistaxis, Head Aches, Other Symptoms, Post Nasal Drip, Sinus Congestion, Sore Throat Skin: Denies: Breakdown, Bruising, Dry, Itching, Jaundice, Lesions, Nail Changes, Other, Rash Pulmonary: Denies: Cough, Dyspnea, Other Symptoms, Pleuritic Chest Pain Cardiovascular: Denies: Chest Pain, Edema, Lt Headedness, Orthopnea, Other Symptoms, Palpitations, Paroxysmal Noc. Dyspnea Gastrointestinal: Reports: Diarrhea, Denies: Abdominal Pain, Constipation, Hematochezia, Melena, Nausea, Other Symptoms, Vomiting Objective Physical Examination General Exam: Positive: Alert, Cooperative, No Acute Distress Eye Exam: Positive: PERRLA, Negative: Sclera icteric ENT Exam: Positive: Atraumatic, Mucous membr. moist/pink, Other ENT (poor dentition) Neck Exam: Positive: Supple Chest Exam: Positive: Clear to auscultation, Normal air movement Heart Exam: Positive: Rate Normal, Regular Rhythm Abdomen Exam: Positive: Normal bowel sounds, Soft, Negative: Tenderness Extremity Exam: Negative: Edema Psych Exam: Negative: Oriented x 3 Assessment /Plan Problems (1) C. difficile diarrhea Status: Acute Problem Specific Plan: Consult Specialist, Repeat Labs Problem Text: Continue Dificid. Still having diarrhea. Discontinued ceftriaxone. ID consultation. (2) Urinary retention Status: Chronic Problem Specific Plan: Monitor Clinically Problem Text: Chronic angel cather. (3) UTI (urinary tract infection) Status: Acute Problem Specific Plan: Monitor Clinically, Repeat Labs, Repeat Tests Problem Text: Recurrent UTI's. Ceftriaxone discontinued. Suprapubic catheter? (4) HTN (hypertension) Status: Chronic Problem Specific Plan: Monitor Clinically Problem Text: As per medical history. (5) HLD (hyperlipidemia) Status: Chronic (6) Hypothyroidism Status: Chronic Problem Text: Continue synthroid. 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 (9) Esophageal dysmotility Status: Chronic Problem Specific Plan: Monitor Clinically Problem Text: s/p PEG tube (10) Swallowing dysfunction Status: Chronic Problem Specific Plan: Monitor Clinically Problem Text: S/P PEG, secondary to esophageal dysmotility (11) Dementia Status: Chronic Discussed With: Patient Problem Text: Patient is oriented x 3. (12) Depression Status: Chronic Problem Text: Continue Zoloft. Plan/VTE VTE Prophylaxis Ordered?: Yes Plan Diet: Make NPO (PEG tube feedings) Activity: Continue Current Medications: Taper Antibiotics Diagnostics: Repeat Labs in AM, Obtain Cultures VS, I&O, 24H, Fishbone Vital Signs/I&O Vital Signs Date Time Temp Pulse Resp B/P Pulse Ox O2 Delivery O2 Flow Rate FiO2 01/16/17 06:00 97.0 110 22 138/76 96 Nasal Cannula 1.0 01/12/17 03:00 35 I&O- Last 24 Hours up to 6 AM 01/16/17 06:00 Intake Total 3310 ml Output Total 2625 ml Balance 685 ml Laboratory Data 24H LABS Laboratory Tests 2 01/15/17 14:36: Urine Amorphous Sediment , Urine Appearance CLEAR, Urine Color YELLOW, Urine pH 5.0, Urine Specific [place] 1.008, Urine Protein NEGATIVE, Urine Glucose (UA) NEGATIVE, Urine Ketones NEGATIVE, Urine Urobilinogen 0.2, Urine Bilirubin NEGATIVE, Urine Leukocyte Esterase NEGATIVE, Urine Bacteria (Auto) 1+H, Urine Blood NEGATIVE, Urine Calcium Carbonate Cryst(Auto) , Urine Calcium Oxalate Cryst (Auto) , Urine Calcium Phosphate [place] (Auto) , Urine Cellular Casts , Urine Cystine Crystals , Urine Granular Casts (Auto) , Urine Hyaline Casts (Auto ) 0, Urine Leucine Crystals , Urine Mucus (Auto) SMALL, Urine Nitrite NEGATIVE, Urine Oval Fat Bodies (Auto) , Urine RBC (Auto) 2, Urine Renal Epithelial Cells , Urine Sperm (Auto) , Urine Squamous Epithelial Cells 0, Urine Transitional Epithelial Cells , Urine Trichomonas (Auto) , Urine Triple Phosphate Cryst (Auto ) , Urine Tyrosine Crystals , Urine Uric Acid Crystals (Auto) , Urine WBC (Auto ) 4H, Urine Waxy Casts (Auto) , Urine Yeast-Like Cells (Auto) 01/16/17 07:08: Blood Urea Nitrogen 19H, Creatinine 1.26, Sodium Level 145, Potassium Level 3.6 , Chloride Level 113H, Carbon Dioxide Level 23, Calcium Level 7.2L, Aspartate Amino Transf (AST/SGOT) 100H, Alanine Aminotransferase (ALT/SGPT) 104H, Alkaline Phosphatase 174H, Total Bilirubin 0.2#, Total Protein 6.0L, Albumin 2.2L, Albumin/Globulin Ratio 0.58L, Anion Gap 9, Glomerular Filtration Rate 58.5 , Magnesium Level 1.8 CBC/BMP Laboratory Tests 01/16/17 07:08 Calcium Level 7.2 L, Aspartate Amino Transf (AST/SGOT) 100 H, Alanine Aminotransferase (ALT/SGPT) 104 H, Alkaline Phosphatase 174 H, Total Bilirubin 0.2 #, Total Protein 6.0 L, Albumin 2.2 L, Red Blood Count 3.17 L, Mean Corpuscular Volume 95.2, Mean Corpuscular Hemoglobin 30.1, Mean Corpuscular Hemoglobin Concent 31.6 L, Red Cell Distribution Width 15.0 H Microbiology Microbiology 01/09/17 Blood Culture - Final, Complete NO GROWTH AFTER 5 DAYS 01/09/17 Blood Culture - Final, Complete NO GROWTH AFTER 5 DAYS 01/10/17 Gastrointestinal Tract Panel (PCR) - Final, Complete Clostridium Difficile A/B 01/15/17 Urine Culture, Received Pending 01/09/17 Urine Culture - Final, Complete Proteus Mirabilis GARETH ODONNELL MD Jan 16, 2017 08:57
[2017-01-16 14:00] VITALS: BP 132/63
[2017-01-16] MEDS: ALBUTEROL SULFATE 2.5 MG/0.5 ML INH NEB SOLN NEB PRN (19:40)
[2017-01-16 22:00] VITALS: BP 110/67
--- NOTE | 2017-01-16 23:21 | CR ---
DATE OF CONSULTATION: 01/16/2017 CONSULTATION REPORT FOR: Dr. Clifton REASON FOR CONSULTATION: Evaluation of recurrent urinary tract infection and C. difficile colitis with first recurrence. HISTORY OF PRESENT ILLNESS: Mr. Cormier is a pleasant 81-year-old gentleman, resident of [facility] for the past three months who was in his usual state of health until three days prior to admission, when he was noted to have decreased level of consciousness, decreased responsiveness and hypoxia. Three days prior to that, he had gone to [facility] [employer] where he was having a good time. He was awake, laughing and clapping. The patient is a F[employer] lift and he is wheelchair dependent. He also has a Martin catheter for the past two years due to urinary retention. He was found to have hypoxia and hypercapnia. He was treated for fluid overload and given Lasix. A urinalysis showed pyuria and a urine culture was positive for Proteus mirabilis on 01/09. He was treated with aztreonam for three days. His blood cultures were negative on admission. The next day, the patient also was having diarrhea and stool for C. diff was sent and that was also positive. He was started on vancomycin from 01/11-01/14 with no significant improvement in his bowel movement. At the same time, he was getting aztreonam 1 gram every eight hours for presumptive urinary tract infection. O01/14, he was switched to fidaxomicin and he is currently day #3. According to his , he is doing much better. Bowel movements have decreased, they are down to two a day. For the past four days on admission, his temperature was up to 100.4 only for the first 24 hours on 01/10. He has had no nausea or vomiting. He has a G-tube with the use of the feedings going from 4 p.m. to 8 a.m. and a noontime feeding. He has this chronic cough with what sounds like constant clearing of his throat. PAST MEDICAL HISTORY: Significant for hypertension, hyperlipidemia, hypothyroidism, multiple myeloma status post bone marrow transplant in 1998 in remission, chronic urinary retention with indwelling Martin catheter and chronic bacteruria being treated frequently for catheter associated UTI, gastroesophageal reflux disease, osteonecrosis of the jaw, compression fracture, bilateral lower extremity weakness, wheelchair dependent, chronic aspiration with a G-tube in place placed by Dr. Ruiz recently, dehydration, esophageal dysmotility causing recurrent aspiration, osteoarthritis, chronic kidney disease, dementia. PAST SURGICAL HISTORY: Cholecystectomy and G tube placement/egd done by Dr Joseph on 10/04/2016 pathology mod-severe gastritis Multiple bone marrow biopsis for multiple myeloma by Dr donohue last in 2011 SOCIAL HISTORY: He is a resident of [facility]. Three months prior he was living at home with his in the [place] area. His doctor is Dr. Cormier. ALLERGY: PENICILLIN. FAMILY HISTORY: Nonrevealing. MEDICATIONS: - heparin subcutaneous 5000 units every 12 hours - Questran 2 grams G tube every six hours - fidaxomicin 200 mg twice a day - nystatin to groin and buttocks - albuterol as needed - probiotics one tablet per G-tube daily - Zoloft 150 mg per G-tube daily - pantoprazole 30 mg daily - levothyroxine 0.224 mg daily - Zofran as needed LABORATORY DATA: White count on admission was 14.8, today was 8.6, hemoglobin 9.6, hematocrit 30.2, platelets 246. Sodium 145, potassium 3.6, chloride 113, bicarb 23, BUN 19, creatinine 1.26, glucose 159, calcium 7.2, AST is 100, ALT 104, which have increased from 39 and 37 on admission, alkaline phosphatase 174, total protein 6, albumin 2.2. BNP is 1160. Urinalysis on admission had too many white cells. On 01/09, 26 red cells, +3 bacteria. On 01/20, urinalysis had only 4 white cells and +1 bacteria. Urine culture had Proteus mirabilis only resistant to nitrofurantoin. Blood cultures two sets were no growth. Stool for C. diff was positive. Repeat urine culture on 01/15 is pending. IMAGING STUDIES: Chest x-ray shows very poor inflation and no gross effusion on the left. Patchy infiltrate or atelectasis on the right side. Cardiomegaly and enlargement of cardiac silhouette. CT head shows moderate diffuse cerebral atrophy and small-vessel changes. No acute intracranial pathology. Chest CT done on 01/09, shows bilateral lower lobe infiltrate, right greater than left without gross effusion and patchy areas of atelectasis or infiltrate. Elevated right hemidiaphragm and bronchograms are seen in both bases, but if this is aspiration of chronic atelectasis with pneumonia is unclear. Cardiomegaly with left atrial and ventricular enlargement. Thoracic kyphosis and multiple compression fractures scattered throughout the thoracic spine with demineralization. PHYSICAL EXAMINATION: Elderly gentleman in no acute distress. He is able to respond appropriately, but most of the history is obtained from his . Temperature is 96.9, pulse 112, respirations 20, blood pressure 132/63, O2 sat 96% on two liters nasal cannula. HEAD AND ENT: Oropharynx very dry with black discoloration of his tongue, looks like dried blood. No lesions. HEART: Normal S1, S2. No murmurs, rubs or gallops. LUNGS: Diminished breath sounds at both bases with exterior rhonchi. No wheezes. ABDOMEN: Soft, nontender. No hepatosplenomegaly. EXTREMITIES: No clubbing, cyanosis or edema. No calf tenderness. IMPRESSION: This is an 81-year-old gentleman who was admitted with hypoxia, hypercarbia with an ABG pH of 7.228, pCO2 76, pO2 131. Followup ABG done the next day: pH was 7.4, pCO2 46, pO2 71, O2 sat was 95% on room. The patient had a clinical presentation of sepsis, unclear whether it was related to an aspiration episode, chronic respiratory failure, urinary tract infection or C difficile colitis. The patient was treated predominately for UTI with aztreonam that was discontinued after three days of therapy. He was treated for C, difficile with initially 4 days of vancomycin switched to fidaxomycin and cholestyramine which has helped. Diarrhea has markedly improved. He still has chronic congestion with a cough and on chest x-ray had a right basilar infiltrate versus atelectasis and BNP is elevated. He only has received one dose of Lasix. At this point, everything seems to have been treated properly and his only concern and his 's, are the chronic cough and some shortness of breath. PLAN: Continue fidaxomicin 200 mg by mouth twice a day for 10 more days. If the patient does not need his PPI for treatment of peptic ulcer disease. Consider discontinuing lansoprazole as there is an increased risk of recurrence with PPI use. Increase probiotics to one tablet twice a day through G-tube. Avoid treatment of catheter and urinary tract bacteruria if the patient is not symptomatic as the patient is at very high risk of recurrence. I have already discussed with his . The possibility of a stool transplantation, fecal microbiota. The patient could have it through his G tube which would be pretty easy to be done at the bedside and may not need a colonoscopy if he has any more recurrence or worsening diarrhea. Thank you for the consultation. STEPHANIE
[2017-01-17 06:00] VITALS: BP 134/75
[2017-01-17] MEDS: CHOLESTYRAMINE 4 GM PWD PKT PEG SCH ×4 (06:36→23:22)
[2017-01-17] MEDS: LEVOTHYROXINE 0.112 MG TAB (112 MCG) GT SCH (06:36)
[2017-01-17] MEDS: ALBUTEROL SULFATE 2.5 MG/0.5 ML INH NEB SOLN NEB PRN (07:15)
[2017-01-17 07:35] LABS: BASO % 0.4 % (0.0-1.0); EOS # 0.5 K/mm3 (0.0-0.50); EOS % 6.7 % (0.0-3.0); LARGE UNSTAINED CELL # 0.1 K/mm3 (0.0-0.4); LARGE UNSTAINED CELL % 1.6 % (0.0-4.0); LYMPH # 0.9 K/mm3 (1.5-4.5); LYMPH % 11.4 % (24.0-44.0); MEAN CORPUSCULAR HEMOGLOBIN 28.9 pg (27.0-33.0); MEAN CORPUSCULAR HGB CONC 31.1 g/dl (32.0-36.5); MONO # 0.3 K/mm3 (0.0-0.8); MONO % 3.2 % (0.0-5.0); NEUTROPHILS % 76.8 % (36.0-66.0); PLATELET COUNT, AUTOMATED 298 k/mm3 (150-450); RED CELL DISTRIBUTION WIDTH 15.3 % (11.5-14.5); WHITE BLOOD COUNT 7.8 K/mm3 (4.0-10.0)
[2017-01-17 08:09] LABS: ALBUMIN 2.1 GM/DL (3.2-5.2); ALBUMIN/GLOBULIN RATIO 0.43 (1.00-1.93); BILIRUBIN,TOTAL 0.2 MG/DL (0.2-1.0); CREATININE FOR GFR 1.47 MG/DL (0.70-1.30); GLOMERULAR FILTRATION RATE 48.9 (>35); POTASSIUM SERUM 3.7 MEQ/L (3.5-5.1)
[2017-01-17] MEDS: HEPARIN SOD (PORCINE) 5000 UNITS/ML VIAL SQ SCH ×2 (08:20→20:19)
[2017-01-17] MEDS: LACTOBACILLUS ACIDOPHILUS CAP (BACID) GT SCH ×2 (08:20→20:19)
[2017-01-17] MEDS: LANSOPRAZOLE SUSPENSION 30 MG/10 ML ORAL SYRINGE (FIRST-LANSOPRAZOLE) GT SCH (08:20)
[2017-01-17] MEDS: SERTRALINE HCL 50 MG TAB GT SCH (08:20)
[2017-01-17] MEDS: FIDAXOMICIN 200 MG TAB (DIFICID) PEG SCH ×2 (08:20→20:19)
--- NOTE | 2017-01-17 08:40 | IPNPDOC ---
Subjective Date Seen The patient was seen on 01/17/17. Subjective Chief Complaint/HPI The patient is a 81-year-old male admitted with a reason for visit of Acute Respiratory Acidosis. General: Denies: Chills, Fatigue, Malaise, Night Sweats, Normal Appetite, Other Symptoms, ROS Unobtainable Constitutional: Denies: Chills, Fatigue, Fever, Lethargy, Malaise, Night Sweats , Other, Weakness, Weight Loss Eyes: Denies: Conjunctivae inflammation, Eyelid inflammation, Other, Pain, Redness, Vision change ENT: Denies: Dysphagia, Ear Pain, Epistaxis, Head Aches, Other Symptoms, Post Nasal Drip, Sinus Congestion, Sore Throat Skin: Denies: Breakdown, Bruising, Dry, Itching, Jaundice, Lesions, Nail Changes, Other, Rash Pulmonary: Denies: Cough, Dyspnea, Other Symptoms, Pleuritic Chest Pain Cardiovascular: Denies: Chest Pain, Edema, Lt Headedness, Orthopnea, Other Symptoms, Palpitations, Paroxysmal Noc. Dyspnea Gastrointestinal: Denies: Abdominal Pain, Constipation, Diarrhea, Hematochezia , Melena, Nausea, Other Symptoms, Vomiting Genitourinary: Denies: Dysuria, Frequency, Hematuria, Incontinence, Other Symptoms, Retention Objective Physical Examination General Exam: Positive: Alert, Cooperative, No Acute Distress Eye Exam: Positive: PERRLA, Negative: Sclera icteric ENT Exam: Positive: Atraumatic, Mucous membr. moist/pink, Other ENT (poor dentition) Neck Exam: Positive: Supple Chest Exam: Positive: Clear to auscultation, Normal air movement Heart Exam: Positive: Rate Normal, Regular Rhythm Abdomen Exam: Positive: Normal bowel sounds, Soft, Negative: Tenderness Extremity Exam: Negative: Edema Psych Exam: Negative: Oriented x 3 Assessment /Plan Problems (1) C. difficile diarrhea Status: Acute Response to Treatment: Improving Problem Specific Plan: Consult Specialist, Repeat Labs Problem Text: Continue Dificid. Still having diarrhea, improved yesterday. Discontinued ceftriaxone. ID consultation appreciated. Increase dosing of probiotics. (2) Urinary retention Status: Chronic Problem Specific Plan: Monitor Clinically Problem Text: Chronic angel cather. (3) UTI (urinary tract infection) Status: Acute Problem Specific Plan: Monitor Clinically, Repeat Labs, Repeat Tests Problem Text: Recurrent UTI's. Ceftriaxone discontinued. Suprapubic catheter? (4) HTN (hypertension) Status: Chronic Problem Specific Plan: Monitor Clinically Problem Text: As per medical history. (5) HLD (hyperlipidemia) Status: Chronic (6) Hypothyroidism Status: Chronic Problem Text: Continue synthroid. 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 (9) Esophageal dysmotility Status: Chronic Problem Specific Plan: Monitor Clinically Problem Text: s/p PEG tube (10) Swallowing dysfunction Status: Chronic Problem Specific Plan: Monitor Clinically Problem Text: S/P PEG, secondary to esophageal dysmotility (11) Dementia Status: Chronic Discussed With: Patient Problem Text: Patient is oriented x 3. (12) Depression Status: Chronic Problem Text: Continue Zoloft. Plan/VTE VTE Prophylaxis Ordered?: Yes Plan/Urinary Catheter Reason for insertion/continuin: Other-document below (chronic urinary retention ) Plan Diet: Make NPO (PEG tube feedings) Activity: Continue Current Medications: Taper Antibiotics Diagnostics: Repeat Labs in AM Anticipated Discharge: Home, Home With Services VS, I&O, 24H, [facility] Vital Signs/I&O Vital Signs Date Time Temp Pulse Resp B/P Pulse Ox O2 Delivery O2 Flow Rate FiO2 01/17/17 06:00 99.3 104 24 134/75 97 Nasal Cannula 2.0 01/12/17 03:00 35 I&O- Last 24 Hours up to 6 AM 01/17/17 05:59 Intake Total 2775 ml Output Total 1650 ml Balance 1125 ml Laboratory Data 24H LABS Laboratory Tests 2 01/17/17 07:05: Blood Urea Nitrogen 24H, Creatinine 1.47H, Sodium Level 144, Potassium Level 3.7 , Chloride Level 111H, Carbon Dioxide Level 26, Calcium Level 8.0L, Aspartate Amino Transf (AST/SGOT) 57H, Alanine Aminotransferase (ALT/SGPT) 88H, Alkaline Phosphatase 158H, Total Bilirubin 0.2, Total Protein 7.0, Albumin 2.1L, Albumin/ Globulin Ratio 0.43L, Anion Gap 7L, White Blood Count 7.8, Red Blood Count 3.31L , Hemoglobin 9.6L, Hematocrit 30.8L, Mean Corpuscular Volume 93.0, Mean Corpuscular Hemoglobin 28.9, Mean Corpuscular Hemoglobin Concent 31.1L, Red Cell Distribution Width 15.3H, Platelet Count 298, Neutrophils (%) (Auto) 76.8H , Lymphocytes (%) (Auto) 11.4L, Monocytes (%) (Auto) 3.2, Eosinophils (%) (Auto ) 6.7H, Basophils (%) (Auto) 0.4, Neutrophils # (Auto) 6.0, Lymphocytes # (Auto ) 0.9L, Monocytes # (Auto) 0.3, Eosinophils # (Auto) 0.5, Basophils # (Auto) 0.0 , Glomerular Filtration Rate 48.9, Large Unclassified Cells # 0.1, Large Unclassified Cells % 1.6 CBC/BMP Laboratory Tests 01/17/17 07:05 Calcium Level 8.0 L, Aspartate Amino Transf (AST/SGOT) 57 H, Alanine Aminotransferase (ALT/SGPT) 88 H, Alkaline Phosphatase 158 H, Total Bilirubin 0.2, Total Protein 7.0, Albumin 2.1 L, Red Blood Count 3.31 L, Mean Corpuscular Volume 93.0, Mean Corpuscular Hemoglobin 28.9, Mean Corpuscular Hemoglobin Concent 31.1 L, Red Cell Distribution Width 15.3 H, Neutrophils (%) (Auto) 76.8 H, Lymphocytes (%) (Auto) 11.4 L, Monocytes (%) (Auto) 3.2, Eosinophils (%) ( Auto) 6.7 H, Basophils (%) (Auto) 0.4, Neutrophils # (Auto) 6.0, Lymphocytes # ( Auto) 0.9 L, Monocytes # (Auto) 0.3, Eosinophils # (Auto) 0.5, Basophils # (Auto ) 0.0 Microbiology Microbiology 01/09/17 Blood Culture - Final, Complete NO GROWTH AFTER 5 DAYS 01/09/17 Blood Culture - Final, Complete NO GROWTH AFTER 5 DAYS 01/10/17 Gastrointestinal Tract Panel (PCR) - Final, Complete Clostridium Difficile A/B 01/15/17 Urine Culture, Received Pending 01/09/17 Urine Culture - Final, Complete Proteus Mirabilis GARETH ODONNELL MD Jan 17, 2017 08:40
[2017-01-17] MEDS ORDERED: DIAPER RELIEF OINT (DESITIN) 60GM TOP SCH (09:45)
[2017-01-17] MEDS: D5W/0.45% SODIUM CHLORIDE 1,000 ML IV SCH (10:45)
[2017-01-17] MEDS: DIAPER RELIEF OINT (DESITIN) 60GM TOP SCH ×3 (13:03→20:21)
[2017-01-17 14:00] VITALS: BP 140/60
[2017-01-17] MEDS: MYCOLOG TOP SCH ×2 (16:48→20:21)
--- NOTE | 2017-01-17 17:33 | IPN ---
DATE: 01/17/2017 Mr. Cormier is doing well. He has no new complaint except for this chronic congestion. No nausea, vomiting or abdominal pain. He is being fed through a gastrostomy (G) tube. He is nothing by mouth. He is afebrile. Temperature 97.6, pulse 97, respirations 22, blood pressure 140/60, oxygen saturation 98% on 2 liters nasal cannula. HEART: Normal S1, S2. Distant. LUNGS: Few expiratory rhonchi bilaterally. ABDOMEN: Soft, nontender. G tube in place. No surrounding erythema. EXTREMITIES: No edema. LABORATORY DATA: White count 7.8, hemoglobin 9.6, hematocrit 30.8, platelets 298, 76% neutrophils , 11% lymphocytes, 3% monocytes. Sodium 144, potassium 3.7, chloride 111, bicarbonate 26, BUN 24, creatinine 1.47 , glucose 136, calcium 8. AST 57 down from 100, ALT 80, alkaline phosphatase 158, total protein 7, albumin 2.1. Stool for Clostridium (C) difficile was positive on 01/10/2017. Urine culture was negative on 01/15/2017. IMPRESSION: 1. Urinary tract infection with Proteus, catheter associated. Was treated with a short course of aztreonam for three days. He could also have been colonized. 2. Clostridium (C) difficile colitis. Initially treated with four days of oral vancomycin, switched to fidaxomicin, currently day#4, doing much better, along with cholestyramine as some of the diarrhea could be from tube feeds. 3. Chronic cough with elevated BMP. I am not sure whether it is related to aspiration versus some congestive heart failure. 4. Severe gastritis on EGD on PPI could consider DC after 6 weeks of Tx as recurrent Cdiff may be higher with PPI PLAN Continue to fidaxomicin for a total of 10 days currently D#4. From infectious disease standpoint, the patient could be sent back to the halfway. [facility]
[2017-01-17 21:00] VITALS: BP 123/66
[2017-01-18 05:25] VITALS: BP 125/75
[2017-01-18] MEDS: LEVOTHYROXINE 0.112 MG TAB (112 MCG) GT SCH (06:32)
[2017-01-18] MEDS: CHOLESTYRAMINE 4 GM PWD PKT PEG SCH ×4 (06:32→23:51)
[2017-01-18] MEDS: D5W/0.45% SODIUM CHLORIDE 1,000 ML IV SCH (06:33)
[2017-01-18] MEDS: LANSOPRAZOLE SUSPENSION 30 MG/10 ML ORAL SYRINGE (FIRST-LANSOPRAZOLE) GT SCH (08:38)
[2017-01-18] MEDS: FIDAXOMICIN 200 MG TAB (DIFICID) PEG SCH ×2 (08:39→20:59)
[2017-01-18] MEDS: LACTOBACILLUS ACIDOPHILUS CAP (BACID) GT SCH ×2 (08:39→20:59)
[2017-01-18] MEDS: DIAPER RELIEF OINT (DESITIN) 60GM TOP SCH ×3 (08:39→20:58)
[2017-01-18] MEDS: MYCOLOG TOP SCH ×3 (08:39→21:00)
[2017-01-18] MEDS: HEPARIN SOD (PORCINE) 5000 UNITS/ML VIAL SQ SCH ×2 (08:39→20:58)
[2017-01-18] MEDS: SERTRALINE HCL 50 MG TAB GT SCH (08:39)
[2017-01-18 09:20] LABS: BASO % 0.3 % (0.0-1.0); EOS # 0.4 K/mm3 (0.0-0.50); EOS % 4.6 % (0.0-3.0); LARGE UNSTAINED CELL # 0.1 K/mm3 (0.0-0.4); LARGE UNSTAINED CELL % 1.1 % (0.0-4.0); LYMPH # 0.9 K/mm3 (1.5-4.5); LYMPH % 10.1 % (24.0-44.0); MEAN CORPUSCULAR HEMOGLOBIN 28.6 pg (27.0-33.0); MEAN CORPUSCULAR HGB CONC 30.9 g/dl (32.0-36.5); MEAN CORPUSCULAR VOLUME 92.7 fl (80.0-96.0); MONO # 0.3 K/mm3 (0.0-0.8); MONO % 3.7 % (0.0-5.0); NEUTROPHILS % 80.1 % (36.0-66.0); PLATELET COUNT, AUTOMATED 345 k/mm3 (150-450); RED CELL DISTRIBUTION WIDTH 15.2 % (11.5-14.5); WHITE BLOOD COUNT 8.7 K/mm3 (4.0-10.0)
[2017-01-18 09:44] LABS: ALBUMIN 2.2 GM/DL (3.2-5.2); ALBUMIN/GLOBULIN RATIO 0.54 (1.00-1.93); BILIRUBIN,TOTAL 0.1 MG/DL (0.2-1.0); CALCIUM LEVEL 7.9 MG/DL (8.8-10.2); CREATININE FOR GFR 1.37 MG/DL (0.70-1.30); GLOMERULAR FILTRATION RATE 53.1 (>35); POTASSIUM SERUM 4.1 MEQ/L (3.5-5.1); TOTAL PROTEIN 6.3 GM/DL (6.4-8.2)
[2017-01-18] MEDS ORDERED: CHOL4PW PEG (10:25)
[2017-01-18] MEDS ORDERED: RISATAB3 EN (10:25)
[2017-01-18] MEDS ORDERED: DESITIN TOP (10:25)
[2017-01-18] MEDS ORDERED: DIFI200T PEG (10:25)
[2017-01-18] MEDS ORDERED: NYST1OIN TOP (10:25)
--- NOTE | 2017-01-18 11:56 | IPNPDOC ---
Subjective Date Seen The patient was seen on 01/18/17. Subjective Chief Complaint/HPI The patient is a 81-year-old male admitted with a reason for visit of Acute Respiratory Acidosis. General: Denies: Chills, Fatigue, Malaise, Night Sweats, Normal Appetite, Other Symptoms, ROS Unobtainable Constitutional: Denies: Chills, Fatigue, Fever, Lethargy, Malaise, Night Sweats , Other, Weakness, Weight Loss Eyes: Denies: Conjunctivae inflammation, Eyelid inflammation, Other, Pain, Redness, Vision change ENT: Denies: Dysphagia, Ear Pain, Epistaxis, Head Aches, Other Symptoms, Post Nasal Drip, Sinus Congestion, Sore Throat Skin: Denies: Breakdown, Bruising, Dry, Itching, Jaundice, Lesions, Nail Changes, Other, Rash Pulmonary: Denies: Cough, Dyspnea, Other Symptoms, Pleuritic Chest Pain Cardiovascular: Denies: Chest Pain, Edema, Lt Headedness, Orthopnea, Other Symptoms, Palpitations, Paroxysmal Noc. Dyspnea Gastrointestinal: Denies: Abdominal Pain, Constipation, Diarrhea, Hematochezia , Melena, Nausea, Other Symptoms, Vomiting Genitourinary: Denies: Dysuria, Frequency, Hematuria, Incontinence, Other Symptoms, Retention Objective Physical Examination General Exam: Positive: Alert, Cooperative, No Acute Distress Eye Exam: Positive: PERRLA, Negative: Sclera icteric ENT Exam: Positive: Atraumatic, Mucous membr. moist/pink, Other ENT (poor dentition) Neck Exam: Positive: Supple Chest Exam: Positive: Clear to auscultation, Normal air movement Heart Exam: Positive: Rate Normal, Regular Rhythm Abdomen Exam: Positive: Normal bowel sounds, Soft, Negative: Tenderness Extremity Exam: Negative: Edema Psych Exam: Negative: Oriented x 3 Assessment /Plan Problems (1) C. difficile diarrhea Status: Acute Response to Treatment: Improving Problem Specific Plan: Consult Specialist, Repeat Labs Problem Text: Continue Dificid. Still having diarrhea, improved yesterday. Discontinued ceftriaxone. ID consultation appreciated. Increase dosing of probiotics. (2) Urinary retention Status: Chronic Problem Specific Plan: Monitor Clinically Problem Text: Chronic angel cather. (3) UTI (urinary tract infection) Status: Acute Problem Specific Plan: Monitor Clinically, Repeat Labs, Repeat Tests Problem Text: Recurrent UTI's. Ceftriaxone discontinued. Suprapubic catheter? (4) HTN (hypertension) Status: Chronic Problem Specific Plan: Monitor Clinically Problem Text: As per medical history. (5) HLD (hyperlipidemia) Status: Chronic (6) Hypothyroidism Status: Chronic Problem Text: Continue synthroid. 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 (9) Esophageal dysmotility Status: Chronic Problem Specific Plan: Monitor Clinically Problem Text: s/p PEG tube (10) Swallowing dysfunction Status: Chronic Problem Specific Plan: Monitor Clinically Problem Text: S/P PEG, secondary to esophageal dysmotility (11) Dementia Status: Chronic Discussed With: Patient Problem Text: Patient is oriented x 3. (12) Depression Status: Chronic Problem Text: Continue Zoloft. Plan/VTE VTE Prophylaxis Ordered?: Yes Plan/Urinary Catheter Reason for insertion/continuin: Other-document below (chronic urinary retention ) Plan Diet: Make NPO (PEG tube feedings) Activity: Continue Current Medications: Taper Antibiotics Diagnostics: Repeat Labs in AM Anticipated Discharge: Shelter Monitor renal function off IV fluids , discharge if improves. VS, I&O, 24H, [facility] Vital Signs/I&O Vital Signs Date Time Temp Pulse Resp B/P Pulse Ox O2 Delivery O2 Flow Rate FiO2 01/18/17 09:00 Nasal Cannula 2.0 01/18/17 05:25 97.5 101 18 125/75 98 01/12/17 03:00 35 I&O- Last 24 Hours up to 6 AM 01/18/17 06:00 Intake Total 1920 ml Output Total 1350 ml Balance 570 ml Laboratory Data 24H LABS Laboratory Tests 2 01/18/17 08:59: Blood Urea Nitrogen 27H, Creatinine 1.37H, Sodium Level 145, Potassium Level 4.1 , Chloride Level 110H, Carbon Dioxide Level 28, Calcium Level 7.9L, Aspartate Amino Transf (AST/SGOT) 64H, Alanine Aminotransferase (ALT/SGPT) 92H, Alkaline Phosphatase 168H, Total Bilirubin 0.1L, Total Protein 6.3L, Albumin 2.2L, Albumin/Globulin Ratio 0.54L, Anion Gap 7L, White Blood Count 8.7, Red Blood Count 3.29L, Hemoglobin 9.4L, Hematocrit 30.5L, Mean Corpuscular Volume 92.7, Mean Corpuscular Hemoglobin 28.6, Mean Corpuscular Hemoglobin Concent 30.9L, Red Cell Distribution Width 15.2H, Platelet Count 345, Neutrophils (%) (Auto) 80.1H, Lymphocytes (%) (Auto) 10.1L, Monocytes (%) (Auto) 3.7, Eosinophils (%) ( Auto) 4.6H, Basophils (%) (Auto) 0.3, Neutrophils # (Auto) 7.0, Lymphocytes # ( Auto) 0.9L, Monocytes # (Auto) 0.3, Eosinophils # (Auto) 0.4, Basophils # (Auto ) 0.0, Glomerular Filtration Rate 53.1, Large Unclassified Cells # 0.1, Large Unclassified Cells % 1.1 CBC/BMP Laboratory Tests 01/18/17 08:59 Calcium Level 7.9 L, Aspartate Amino Transf (AST/SGOT) 64 H, Alanine Aminotransferase (ALT/SGPT) 92 H, Alkaline Phosphatase 168 H, Total Bilirubin 0.1 L, Total Protein 6.3 L, Albumin 2.2 L, Red Blood Count 3.29 L, Mean Corpuscular Volume 92.7, Mean Corpuscular Hemoglobin 28.6, Mean Corpuscular Hemoglobin Concent 30.9 L, Red Cell Distribution Width 15.2 H, Neutrophils (%) ( Auto) 80.1 H, Lymphocytes (%) (Auto) 10.1 L, Monocytes (%) (Auto) 3.7, Eosinophils (%) (Auto) 4.6 H, Basophils (%) (Auto) 0.3, Neutrophils # (Auto) 7.0 , Lymphocytes # (Auto) 0.9 L, Monocytes # (Auto) 0.3, Eosinophils # (Auto) 0.4, Basophils # (Auto) 0.0 Microbiology Microbiology 01/09/17 Blood Culture - Final, Complete NO GROWTH AFTER 5 DAYS 01/09/17 Blood Culture - Final, Complete NO GROWTH AFTER 5 DAYS 01/10/17 Gastrointestinal Tract Panel (PCR) - Final, Complete Clostridium Difficile A/B 01/15/17 Urine Culture - Final, Complete 01/09/17 Urine Culture - Final, Complete Proteus Mirabilis GARETH ODONNELL MD Jan 18, 2017 11:56
[2017-01-18 14:00] VITALS: BP 148/64
[2017-01-18 20:45] VITALS: BP 135/73
[2017-01-19 05:30] VITALS: BP 152/82
[2017-01-19 06:18] LABS: BASO % 0.4 % (0.0-1.0); EOS # 0.4 K/mm3 (0.0-0.50); EOS % 4.2 % (0.0-3.0); LARGE UNSTAINED CELL # 0.1 K/mm3 (0.0-0.4); LARGE UNSTAINED CELL % 0.9 % (0.0-4.0); LYMPH # 1.1 K/mm3 (1.5-4.5); LYMPH % 11.5 % (24.0-44.0); MEAN CORPUSCULAR HEMOGLOBIN 29.1 pg (27.0-33.0); MEAN CORPUSCULAR HGB CONC 30.4 g/dl (32.0-36.5); MEAN CORPUSCULAR VOLUME 95.7 fl (80.0-96.0); MONO # 0.3 K/mm3 (0.0-0.8); MONO % 3.1 % (0.0-5.0); NEUTROPHILS # 7.3 K/mm3 (1.8-7.7); NEUTROPHILS % 79.9 % (36.0-66.0); PLATELET COUNT, AUTOMATED 368 k/mm3 (150-450); RED CELL DISTRIBUTION WIDTH 15.3 % (11.5-14.5); WHITE BLOOD COUNT 9.1 K/mm3 (4.0-10.0)
[2017-01-19 06:36] LABS: CREATININE FOR GFR 1.28 MG/DL (0.70-1.30); GLOMERULAR FILTRATION RATE 57.4 (>35); POTASSIUM SERUM 4.4 MEQ/L (3.5-5.1)
[2017-01-19] MEDS: CHOLESTYRAMINE 4 GM PWD PKT PEG SCH ×4 (06:36→23:38)
[2017-01-19] MEDS: LEVOTHYROXINE 0.112 MG TAB (112 MCG) GT SCH (06:36)
--- NOTE | 2017-01-19 08:11 | IPNPDOC ---
Subjective Date Seen The patient was seen on 01/19/17. Subjective Chief Complaint/HPI The patient is a 81-year-old male admitted with a reason for visit of Acute Respiratory Acidosis. General: Denies: Chills, Fatigue, Malaise, Night Sweats, Normal Appetite, Other Symptoms, ROS Unobtainable Constitutional: Denies: Chills, Fatigue, Fever, Lethargy, Malaise, Night Sweats , Other, Weakness, Weight Loss Eyes: Denies: Conjunctivae inflammation, Eyelid inflammation, Other, Pain, Redness, Vision change ENT: Denies: Dysphagia, Ear Pain, Epistaxis, Head Aches, Other Symptoms, Post Nasal Drip, Sinus Congestion, Sore Throat Skin: Denies: Breakdown, Bruising, Dry, Itching, Jaundice, Lesions, Nail Changes, Other, Rash Pulmonary: Denies: Cough, Dyspnea, Other Symptoms, Pleuritic Chest Pain Cardiovascular: Denies: Chest Pain, Edema, Lt Headedness, Orthopnea, Other Symptoms, Palpitations, Paroxysmal Noc. Dyspnea Gastrointestinal: Denies: Abdominal Pain, Constipation, Diarrhea, Hematochezia , Melena, Nausea, Other Symptoms, Vomiting Genitourinary: Denies: Dysuria, Frequency, Hematuria, Incontinence, Other Symptoms, Retention Objective Physical Examination General Exam: Positive: Alert, Cooperative, No Acute Distress Eye Exam: Positive: PERRLA, Negative: Sclera icteric ENT Exam: Positive: Atraumatic, Mucous membr. moist/pink, Other ENT (poor dentition) Neck Exam: Positive: Supple Chest Exam: Positive: Clear to auscultation, Normal air movement Heart Exam: Positive: Rate Normal, Regular Rhythm Abdomen Exam: Positive: Normal bowel sounds, Soft, Negative: Tenderness Extremity Exam: Negative: Edema Psych Exam: Negative: Oriented x 3 (oriented to person and place today) Assessment /Plan Problems (1) C. difficile diarrhea Status: Acute Response to Treatment: Improving Problem Specific Plan: Consult Specialist, Repeat Labs Problem Text: Continue Dificid and probiotics for 10 days. ID consultation appreciated. (2) Urinary retention Status: Chronic Problem Specific Plan: Monitor Clinically Problem Text: Chronic angel cather. (3) UTI (urinary tract infection) Status: Chronic Problem Specific Plan: Monitor Clinically, Repeat Labs, Repeat Tests Problem Text: Recurrent UTI's. (4) HTN (hypertension) Status: Chronic Problem Specific Plan: Monitor Clinically Problem Text: As per medical history. (5) HLD (hyperlipidemia) Status: Chronic (6) Hypothyroidism Status: Chronic Problem Text: Continue synthroid. 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 Today oriented to person and place. (12) Depression Status: Chronic Problem Text: Continue Zoloft. Plan/VTE VTE Prophylaxis Ordered?: Yes Plan/Urinary Catheter Reason for insertion/continuin: Other-document below (chronic urinary retention ) Plan Diet: Make NPO (PEG tube feedings) Activity: Continue Current Medications: Taper Antibiotics Anticipated Discharge: Group Home Creatinine improved with IV fluids. Anticipating return to [facility] when receiving facility can facilitate transfer. VS, I&O, 24H, [facility] Vital Signs/I&O Vital Signs Date Time Temp Pulse Resp B/P Pulse Ox O2 Delivery O2 Flow Rate FiO2 01/19/17 05:30 97.7 96 18 152/82 95 Nasal Cannula 2.0 I&O- Last 24 Hours up to 6 AM 01/19/17 05:59 Intake Total 1300 ml Output Total 1500 ml Balance -200 ml Laboratory Data 24H LABS Laboratory Tests 2 01/18/17 08:59: Blood Urea Nitrogen 27H, Creatinine 1.37H, Sodium Level 145, Potassium Level 4.1 , Chloride Level 110H, Carbon Dioxide Level 28, Calcium Level 7.9L, Aspartate Amino Transf (AST/SGOT) 64H, Alanine Aminotransferase (ALT/SGPT) 92H, Alkaline Phosphatase 168H, Total Bilirubin 0.1L, Total Protein 6.3L, Albumin 2.2L, Albumin/Globulin Ratio 0.54L, Anion Gap 7L, White Blood Count 8.7, Red Blood Count 3.29L, Hemoglobin 9.4L, Hematocrit 30.5L, Mean Corpuscular Volume 92.7, Mean Corpuscular Hemoglobin 28.6, Mean Corpuscular Hemoglobin Concent 30.9L, Red Cell Distribution Width 15.2H, Platelet Count 345, Neutrophils (%) (Auto) 80.1H, Lymphocytes (%) (Auto) 10.1L, Monocytes (%) (Auto) 3.7, Eosinophils (%) ( Auto) 4.6H, Basophils (%) (Auto) 0.3, Neutrophils # (Auto) 7.0, Lymphocytes # ( Auto) 0.9L, Monocytes # (Auto) 0.3, Eosinophils # (Auto) 0.4, Basophils # (Auto ) 0.0, Glomerular Filtration Rate 53.1, Large Unclassified Cells # 0.1, Large Unclassified Cells % 1.1 01/19/17 05:40: Blood Urea Nitrogen 28H, Creatinine 1.28, Sodium Level 144, Potassium Level 4.4 , Chloride Level 109H, Carbon Dioxide Level 28, Calcium Level 8.0L, Anion Gap 7L , White Blood Count 9.1, Red Blood Count 3.26L, Hemoglobin 9.5L, Hematocrit 31.2L, Mean Corpuscular Volume 95.7, Mean Corpuscular Hemoglobin 29.1, Mean Corpuscular Hemoglobin Concent 30.4L, Red Cell Distribution Width 15.3H, Platelet Count 368, Neutrophils (%) (Auto) 79.9H, Lymphocytes (%) (Auto) 11.5L, Monocytes (%) (Auto) 3.1, Eosinophils (%) (Auto) 4.2H, Basophils (%) (Auto) 0.4 , Neutrophils # (Auto) 7.3, Lymphocytes # (Auto) 1.1L, Monocytes # (Auto) 0.3, Eosinophils # (Auto) 0.4, Basophils # (Auto) 0.0, Glomerular Filtration Rate 57.4, Large Unclassified Cells # 0.1, Large Unclassified Cells % 0.9 CBC/BMP Laboratory Tests 01/18/17 08:59 Calcium Level 7.9 L, Aspartate Amino Transf (AST/SGOT) 64 H, Alanine Aminotransferase (ALT/SGPT) 92 H, Alkaline Phosphatase 168 H, Total Bilirubin 0.1 L, Total Protein 6.3 L, Albumin 2.2 L, Red Blood Count 3.29 L, Mean Corpuscular Volume 92.7, Mean Corpuscular Hemoglobin 28.6, Mean Corpuscular Hemoglobin Concent 30.9 L, Red Cell Distribution Width 15.2 H, Neutrophils (%) ( Auto) 80.1 H, Lymphocytes (%) (Auto) 10.1 L, Monocytes (%) (Auto) 3.7, Eosinophils (%) (Auto) 4.6 H, Basophils (%) (Auto) 0.3, Neutrophils # (Auto) 7.0 , Lymphocytes # (Auto) 0.9 L, Monocytes # (Auto) 0.3, Eosinophils # (Auto) 0.4, Basophils # (Auto) 0.0 01/19/17 05:40 Calcium Level 8.0 L, Red Blood Count 3.26 L, Mean Corpuscular Volume 95.7, Mean Corpuscular Hemoglobin 29.1, Mean Corpuscular Hemoglobin Concent 30.4 L, Red Cell Distribution Width 15.3 H, Neutrophils (%) (Auto) 79.9 H, Lymphocytes (%) ( Auto) 11.5 L, Monocytes (%) (Auto) 3.1, Eosinophils (%) (Auto) 4.2 H, Basophils (%) (Auto) 0.4, Neutrophils # (Auto) 7.3, Lymphocytes # (Auto) 1.1 L, Monocytes # (Auto) 0.3, Eosinophils # (Auto) 0.4, Basophils # (Auto) 0.0 Microbiology Microbiology 01/09/17 Blood Culture - Final, Complete NO GROWTH AFTER 5 DAYS 01/09/17 Blood Culture - Final, Complete NO GROWTH AFTER 5 DAYS 01/10/17 Gastrointestinal Tract Panel (PCR) - Final, Complete Clostridium Difficile A/B 01/15/17 Urine Culture - Final, Complete 01/09/17 Urine Culture - Final, Complete Proteus Mirabilis GARETH ODONNELL MD Jan 19, 2017 08:11
[2017-01-19] MEDS: DIAPER RELIEF OINT (DESITIN) 60GM TOP SCH ×3 (08:53→20:14)
[2017-01-19] MEDS: MYCOLOG TOP SCH ×3 (08:53→20:15)
[2017-01-19] MEDS: LANSOPRAZOLE SUSPENSION 30 MG/10 ML ORAL SYRINGE (FIRST-LANSOPRAZOLE) GT SCH (08:54)
[2017-01-19] MEDS: LACTOBACILLUS ACIDOPHILUS CAP (BACID) GT SCH ×2 (08:54→20:13)
[2017-01-19] MEDS: FIDAXOMICIN 200 MG TAB (DIFICID) PEG SCH ×2 (08:54→20:13)
[2017-01-19] MEDS: HEPARIN SOD (PORCINE) 5000 UNITS/ML VIAL SQ SCH ×2 (08:55→20:14)
[2017-01-19] MEDS: SERTRALINE HCL 50 MG TAB GT SCH (08:55)
[2017-01-19 14:00] VITALS: BP 138/64
[2017-01-19 21:24] VITALS: BP 129/73
[2017-01-20] MEDS: CHOLESTYRAMINE 4 GM PWD PKT PEG SCH ×3 (06:42→17:26)
[2017-01-20] MEDS: LEVOTHYROXINE 0.112 MG TAB (112 MCG) GT SCH (06:42)
[2017-01-20 06:45] VITALS: BP 143/79
[2017-01-20] MEDS: FIDAXOMICIN 200 MG TAB (DIFICID) PEG SCH ×2 (08:37→20:55)
[2017-01-20] MEDS: SERTRALINE HCL 50 MG TAB GT SCH (08:37)
[2017-01-20] MEDS: LACTOBACILLUS ACIDOPHILUS CAP (BACID) GT SCH ×2 (08:37→20:55)
[2017-01-20] MEDS: DIAPER RELIEF OINT (DESITIN) 60GM TOP SCH ×3 (08:38→20:55)
[2017-01-20] MEDS: MYCOLOG TOP SCH ×3 (08:38→20:55)
[2017-01-20] MEDS: HEPARIN SOD (PORCINE) 5000 UNITS/ML VIAL SQ SCH (08:38)
[2017-01-20] MEDS: LANSOPRAZOLE SUSPENSION 30 MG/10 ML ORAL SYRINGE (FIRST-LANSOPRAZOLE) GT SCH (08:38)
--- NOTE | 2017-01-20 09:20 | IPNPDOC ---
Subjective Date Seen The patient was seen on 01/20/17. Subjective Chief Complaint/HPI The patient is a 81-year-old male admitted with a reason for visit of Acute Respiratory Acidosis. General: Denies: Chills, Fatigue, Malaise, Night Sweats, Normal Appetite, Other Symptoms, ROS Unobtainable Constitutional: Denies: Chills, Fatigue, Fever, Lethargy, Malaise, Night Sweats , Other, Weakness, Weight Loss Eyes: Denies: Conjunctivae inflammation, Eyelid inflammation, Other, Pain, Redness, Vision change ENT: Denies: Dysphagia, Ear Pain, Epistaxis, Head Aches, Other Symptoms, Post Nasal Drip, Sinus Congestion, Sore Throat Skin: Denies: Breakdown, Bruising, Dry, Itching, Jaundice, Lesions, Nail Changes, Other, Rash Pulmonary: Denies: Cough, Dyspnea, Other Symptoms, Pleuritic Chest Pain Cardiovascular: Denies: Chest Pain, Edema, Lt Headedness, Orthopnea, Other Symptoms, Palpitations, Paroxysmal Noc. Dyspnea Gastrointestinal: Denies: Abdominal Pain, Constipation, Diarrhea, Hematochezia , Melena, Nausea, Other Symptoms, Vomiting Objective Physical Examination General Exam: Positive: Alert, Cooperative, No Acute Distress Eye Exam: Positive: PERRLA, Negative: Sclera icteric ENT Exam: Positive: Atraumatic, Mucous membr. moist/pink, Other ENT (poor dentition) Neck Exam: Positive: Supple Chest Exam: Positive: Clear to auscultation, Normal air movement, Other (mild basilar crackles) Heart Exam: Positive: Rate Normal, Regular Rhythm Abdomen Exam: Positive: Normal bowel sounds, Other (PEG tube in place, area C/D /I), Soft, Negative: Tenderness Extremity Exam: Negative: Edema Psych Exam: Negative: Oriented x 3 (oriented to person and place today) Assessment /Plan Problems (1) C. difficile diarrhea Status: Acute Response to Treatment: Improving Problem Specific Plan: Consult Specialist, Repeat Labs Problem Text: Continue Dificid and probiotics for 10 days. ID consultation appreciated. (2) Urinary retention Status: Chronic Problem Specific Plan: Monitor Clinically Problem Text: Chronic angel cather. (3) UTI (urinary tract infection) Status: Chronic Problem Specific Plan: Monitor Clinically, Repeat Labs, Repeat Tests Problem Text: Recurrent UTI's. (4) HTN (hypertension) Status: Chronic Problem Specific Plan: Monitor Clinically Problem Text: As per medical history. (5) HLD (hyperlipidemia) Status: Chronic (6) Hypothyroidism Status: Chronic Problem Text: Continue synthroid. 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 Today oriented to person and place. (12) Depression Status: Chronic Problem Text: Continue Zoloft. Plan/VTE VTE Prophylaxis Ordered?: Yes Plan/Urinary Catheter Reason for insertion/continuin: Other-document below (chronic urinary retention ) Plan Diet: Make NPO (PEG tube feedings) Activity: Continue Current Medications: Taper Antibiotics Anticipated Discharge: Intermediate Disposition Anticipating return to [place] in 24 hours. VS, I&O, 24H, [facility] Vital Signs/I&O Vital Signs Date Time Temp Pulse Resp B/P Pulse Ox O2 Delivery O2 Flow Rate FiO2 01/20/17 06:45 99.4 109 17 143/79 94 Nasal Cannula 2.0 I&O- Last 24 Hours up to 6 AM 01/20/17 06:00 Intake Total 930 ml Output Total 1725 ml Balance -795 ml Laboratory Data Microbiology Microbiology 01/10/17 Gastrointestinal Tract Panel (PCR) - Final, Complete Clostridium Difficile A/B 01/15/17 Urine Culture - Final, Complete GARETH ODONNELL MD Jan 20, 2017 09:20
[2017-01-20 14:00] VITALS: BP 118/76
[2017-01-20 22:00] VITALS: BP 144/80
[2017-01-21] MEDS: CHOLESTYRAMINE 4 GM PWD PKT PEG SCH ×2 (00:04→05:41)
[2017-01-21 06:00] VITALS: BP 146/78
[2017-01-21] MEDS: LEVOTHYROXINE 0.112 MG TAB (112 MCG) GT SCH (06:36)
[2017-01-21] MEDS: SERTRALINE HCL 50 MG TAB GT SCH (08:38)
[2017-01-21] MEDS: LACTOBACILLUS ACIDOPHILUS CAP (BACID) GT SCH (08:38)
[2017-01-21] MEDS: LANSOPRAZOLE SUSPENSION 30 MG/10 ML ORAL SYRINGE (FIRST-LANSOPRAZOLE) GT SCH (08:38)
[2017-01-21] MEDS: MYCOLOG TOP SCH (08:39)
[2017-01-21] MEDS: DIAPER RELIEF OINT (DESITIN) 60GM TOP SCH (08:39)
[2017-01-21] MEDS: FIDAXOMICIN 200 MG TAB (DIFICID) PEG SCH (10:31)
--- NOTE | 2017-01-21 11:18 | DS.PDOC ---
Discharge Summary General Date of Admission Jan 09, 2017 at 16:59 Date of Discharge Jan 21, 2017 at 11:09 Primary Care Physician: ABDULKADIR DENNIS DO Attending Physician: GARETH ODONNELL MD Specialist/Consultants Involve: Bennett Engle MD Discharge Summary Consults: Infectious disease Dr. Lydia Engle Discharge diagnosis: Acute hypoxic respiratory failure C. difficile diarrhea Secondary diagnosis: Urinary retention Urinary tract infection with chronic Martin Hypokalemia Hypertension Hyperlipidemia Hypothyroidism Multiple myeloma in remission GERD Esophageal dysmotility Swallowing dysfunction Dementia Depression Hypertension. Hyperlipidemia. Hypothyroidism. Multiple myeloma, status post donor bone marrow transplant. 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 Gastroesophageal reflux disease (GERD). Osteonecrosis of the jaw. Mandibular cyst. Compression fractures. Bilateral lower extremity weakness. History of chronic aspiration with percutaneous endoscopic gastrostomy (PEG) tube. History of dehydration. Esophageal dysmotility. Osteoarthritis. Chronic kidney disease, stage III. Dementia. History of multiple falls and inability to walk. Hospital course: 81-year-old male with past medical history significant for dementia ,from [facility] presented to the ED on 01/09/2017 for decreased level oxygen , decreased level of responsiveness which occurred suddenly. Was found to be hypercapnic and hypoxic when brought to the emergency department. There was a question of him being overloaded with fluid and he was given Lasix in the ED. He was admitted to the hospitalist service for sudden onset hypoxic hypercapnic respiratory failure most likely secondary to infectious etiology (suspected from sepsis event related to Proteus UTI) and admitted to the ICU. He was placed on BiPAP and he was started on aztreonam for UTI. Eventually, his hypercapnic respiratory failure had resolved and BiPAP was no longer continued. He began to require supplemental oxygen.. He had developed sepsis most likely secondary to Proteus recurrent UTI and was started on ceftriaxone despite penicillin allergy which he tolerated. Patient also developed recurrent C. difficile diarrhea and was started on vancomycin. As the patient has a history of aspiration and esophageal dysmotility and a PEG tube, patient's medications therefore were given through his PEG tube. Feeds were withheld initially but he was restarted eventually on Osmolite 1.2 per PEG tube. DVT prophylaxis given with heparin. Was placed on aspiration precautions. Blood and urine cultures were sent. Patient also developed JOVAN and hypernatremia and was placed on IV fluids that were changed to D5W which had eventually resolved, but he then developed hypokalemia probably related to his diarrhea. Electrolytes were repleted as necessary. From the diarrhea, and multiple stools, patient had developed irritation and erythema in the sacral area. His was placed on cholestyramine which was increased. He was switched to dificid for C. difficile. In addition to C. difficile diarrhea, it was also speculated that the PEG tube feeds could give him loose stools. Patient began to have several episodes of hypokalemia which were repleted with IV fluids containing potassium. Nutrition was consulted and PEG tube feeds were adjusted accordingly. For C. difficile, a rectal tube was placed temporarily and Questran was added. On 01/16, Infectious Disease was consulted for continued C. diff diarrhea who recommended to increasing dosing of probiotics. ID recommended for patient to continue deficit for total of 10 days and the patient could be [facility] to the [facility] from the standpoint. Blood culture showed no growth to date after 5 days. GI panel was positive for Clostridium difficile A/B. Urine culture grew Proteus mirabilis. Patient was found to have severe gastritis on EGD. It was noted that the patient was on a proton pump inhibitor which also has a high chance of causing recurrent C. difficile. ID recommended for patient to consider discontinuing lansoprazole after 6 weeks if the patient did not need his PPI for treatment of peptic ulcer disease/gastritis. ID also recommended for avoiding treatment of catheter and urinary tract bacteria bacteriuria if the patient was asymptomatic due to high risk of recurrence of C. difficile. Today, patient's diarrhea has improved markedly. Patient is clinically and medically stable for discharge. Progress note on date of discharge: Subjective: Patient seen and examined at bedside. Denied fevers, fatigue, night sweats, weakness, weight loss, headaches, sore throat, rashes lesions, swelling, PND, orthopnea, chills, dizziness, headache, chest pain, shortness of breath, nausea , vomiting, abdominal pain, constipation. Admits to improved diarrhea. Objective: Vitals: T 96.9, pulse 95, R 20, BP 146/78, pulse oximetry: 98% on 2 L nasal cannula. Gen.: Patient awake, alert and oriented 3, verbal and able to answer questions appropriately. He does not appear to be in any acute distress Chest: Symmetrical chest rise bilaterally. Neck: Supple. No cervical lymphadenopathy bilaterally. No thyromegaly. Heart: Regular rate and rhythm, normal S1-S2. No murmurs, rubs, clicks or gallops Lungs: Clear to auscultation bilaterally. No wheezes, rales or rhonchi Abdomen: Active bowel sounds, soft, nontender, no masses to palpation Musculoskeletal: Limited range of motion. Extremities: No lower chilly edema bilaterally. Skin: No rashes or lesions noted. Labs: Please see below. Assessment: 81-year-old male admitted for acute respiratory acidosis. Found to have Proteus mirabilis UTI with chronic Martin, C. difficile diarrhea, JOVAN, hypokalemia. Disposition: Discharge to his [facility] jail. Follow-up: With PCP Dr. Dennis within 7 days. Activity: As tolerated with assistance. Diet: NPO. PEG tube feeds. Medications on discharge: Cholestyramine 2 g PEG every 6 hours Desitin one dose/60 g ointment: 1 dose topical 3 times a day Dificid 200 mg PEG twice a day Nystatin/triamcinolone 100,000-0.1 unit/gm-% 1 ointment: 1 dose topical 3 times a day Acetaminophen 650 mg Sup ND every 4 hours when necessary pain/fever Acetaminophen 325 mg tab 650 mg EN every 4 hours when necessary pain/fever Albuterol Sulfate 2.5 mg/3 mL nebulizer 2.5 mg inhalation 4 times a day Atenolol tab 75 mg EN daily Dulcolax 10 mg Sup 10 mg ND daily when necessary constipation Enema 1 Ponce ND daily when necessary constipation Lansoprazole 30 mg capsule 30 mg by mouth daily Levothyroxine sodium 112 g tab 225 g EN daily Memantine hydrochloride Namenda XR 21 mg capsule EN daily Milk of magnesia 1200 mg/15 mL suspension 30 mL EN daily when necessary constipation Mirtazapine 7.5 mg tab EN QPM Osmolite 1.2 Matthew 1 liquid EN QPM Osmolite 1.2 Matthew 1 liquid 360 mL EN daily Saliva substitute (Mouthkote) 60 Ml liquid 1 dose MT when necessary dry mouth Sertraline tab 150 mg EN daily Change prescriptions: Samaria-Bid Probiotic 1 Tab Old: 1 Tab EN daily New: 1 Tab EN BID #20 Tab Stopped Medications: Amlodipine Besylate 10 Mg Tab EN daily Time spent on discharge: 35 minutes Vital Signs/I&Os Vital Signs Date Time Temp Pulse Resp B/P Pulse Ox O2 Delivery O2 Flow Rate FiO2 01/21/17 06:00 96.9 95 20 146/78 98 Nasal Cannula 2.0 I&O- Last 24 Hours up to 6 AM 01/21/17 06:00 Intake Total 2560 ml Output Total 2175 ml Balance 385 ml Microbiology Microbiology 01/15/17 Urine Culture - Final, Complete Discharge Medications Scheduled (Osmolite 1.2 Matthew) 1 Liq Liq 1 LIQ EN QPM (Reported) DELIVER 100CC PER HOUR FOR 16 HOURS @ 1600 (Osmolite 1.2 Matthew) 1 Liq Liq 360 ML EN DAILY (Reported) G-TUBE BOLUS @ 1200 (Samaria-Bid Probiotic) 1 Tab Tab 1 TAB EN BID Albuterol Sulfate (Albuterol Sulfate) 2.5 Mg/3 Ml Nebu 2.5 MG INH QID (Reported ) HAS NOT STARTED YET. ORDER WRITTEN 01/09/17 THRU 01/16/17 Atenolol (Atenolol) 50 Mg Tab 75 MG EN DAILY (Reported) Cholestyramine (Cholestyramine) 4 Gm Pow 2 GM PEG Q6H Continue for 10 days. Desitin (Desitin) 1 Dose/60 Gm Oin 1 DOSE TOP TID Continue for 10-14 days pending re-evaluation of wounds. Fidaxomicin (Dificid) 200 Mg Tab 200 MG PEG BID Lansoprazole (Lansoprazole) 30 Mg Cap 30 MG PO DAILY (Reported) Levothyroxine Sodium (Synthroid) 112 Mcg Tab 224 MCG EN DAILY (Reported) Memantine Hydrochloride (Namenda Xr) 21 Mg Cap 21 MG EN DAILY (Reported) Mirtazapine (Mirtazapine) 7.5 Mg Tab 7.5 MG EN QPM (Reported) @ 1600 Nystatin/Triamcinolone (Nystatin/Triamcinolone 349720-1.1 Unit/gm-%) 1 Oin Oin 1 DOSE TOP TID Continue for 10 days pending re-evaluation of wounds. Sertraline Hcl (Sertraline HCl) 50 Mg Tab 150 MG EN DAILY (Reported) Scheduled PRN (Enema) 1 Ponce Ponce 1 PONCE ND DAILY PRN PRN CONSTIPATION (Reported) Acetaminophen (Feverall Adults) 650 Mg Sup 650 MG ND Q4H PRN PRN PAIN / FEVER ( Reported) Acetaminophen (Tylenol) 325 Mg Tab 650 MG EN Q4H PRN PRN PAIN / FEVER (Reported ) Bisacodyl (Dulcolax) 10 Mg Sup 10 MG ND DAILY PRN PRN CONSTIPATION (Reported) Milk Of Magnesia (Milk of Magnesia) 1,200 Mg/15 Ml Sabine 30 ML EN DAILY PRN PRN CONSTIPATION (Reported) Saliva Substitute (Mouthkote) 60 Ml Liq 1 DOSE MT PRN PRN PRN DRY MOUTH ( Reported) Allergies Coded Allergies: Penicillins (Verified Allergy, Severe, SWELLING, RESPIRATORY DISTRESS, 10/11) Penicillins Cross Reactors (Verified Allergy, Severe, SWELLING, RESPIRATORY DISTRESS, 01/06/15) GME ATTESTATION GME ATTESTATION My preceptor for this patient encounter was Dr. Gareth Odonnell, and was physically present in the building during the encounter and was fully available. As needed , all aspects of the patient interview, examination, medical decision making process, and medical care plan development were reviewed and approved by the preceptor. Preceptor is aware and concurs with the plan as stated in the body of this note and will attest to such by his/her cosignature. AKUA JACKSON OGME-1 Jan 21, 2017 11:18
== END 2017-01-21 11:09 | DRG 698 ==
LOC: M ED 15:16 → M ED INP 16:59 → M ICU 18:02 → M MSPAV 01-13 10:24
PROVIDERS: ADMIT Internal Medicine; ATTEND Internal Medicine
DX: T83.511A Infection and inflammatory reaction due to indwelling urethral catheter, initial encounter (principal); A41.9 Sepsis, unspecified organism; J96.01 Acute respiratory failure with hypoxia; J96.02 Acute respiratory failure with hypercapnia; G93.41 Metabolic encephalopathy; J69.0 Pneumonitis due to inhalation of food and vomit; J15.6 Pneumonia due to other Gram-negative bacteria; A04.7 Enterocolitis due to Clostridium difficile; N17.9 Acute kidney failure, unspecified; C90.01 Multiple myeloma in remission; E87.0 Hyperosmolality and hypernatremia; Z66 Do not resuscitate; N39.0 Urinary tract infection, site not specified; E78.5 Hyperlipidemia, unspecified; I12.9 Hypertensive chronic kidney disease with stage 1 through stage 4 chronic kidney disease, or unspecified chronic kidney disease; K21.9 Gastro-esophageal reflux disease without esophagitis; E03.9 Hypothyroidism, unspecified; F32.9 Major depressive disorder, single episode, unspecified; F03.90 Unspecified dementia, unspecified severity, without behavioral disturbance, psychotic disturbance, mood disturbance, and anxiety; R33.8 Other retention of urine; M19.90 Unspecified osteoarthritis, unspecified site; R29.6 Repeated falls; N18.3 Chronic kidney disease, stage 3 (moderate); Z79.899 Other long term (current) drug therapy; Z88.0 Allergy status to penicillin; K29.70 Gastritis, unspecified, without bleeding; R13.10 Dysphagia, unspecified

== ENCOUNTER → 2017-01-09 | Outpatient (REF) ==
[~2017-01-09] MED LIST changes: +ALBU83IN INH; +AMLO10TA2 EN; +ATEN50TA2 EN; -ATEN50TA2 PO; +DIFI200T PO; +DULC10SU2 PR; +ENEM1ENE4 PR; +ENSULIQ64 PO; +FEVE650S3 PR; +FIRS3SUS FT; +GUAIDM5UD PO; +LANS30CA PO; +LEVO112T2 EN; -LEVO112T2 PO; +MILKSUS EN; +MIRT1TAB EN; +MOUKOT60 MT; +NAME21CA EN; -NAME21CA PO; +NYST10PW TOP; +OSMOLIQ7 EN; +OSMOLIQ7 PO; +RISATAB3 EN; +RISATAB3 PEG; +SENN8.6T54 PO; -SERT-141 PO; +SERT50TA EN; +TYLE325T5 EN
--- NOTE | 2017-01-09 11:44 | REP ---
AP PORTABLE CHEST: 01/09/2017. COMPARISON: 11/07/2016 CT, portable chest 11/04/2016. FINDINGS: Lung ramires are quite hypoinflated with elevation of the right diaphragm. 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 No free air. Basilar atelectatic changes right greater than left with crowded markings adjacent to the right diaphragm. The posterior lower lung zones are poorly evaluated on this hypoinflated AP chest. Right upper quadrant clips from prior cholecystectomy are noted. There is no demetrius edema. No gross effusion but a significant effusion could be obscured on the portable chest Degenerative changes in the spine and shoulders. IMPRESSION: 1. Hypoinflated chest with elevated right diaphragm and colonic interposition between the dome of the liver and the diaphragm. 2. Bibasilar atelectasis and/or infiltrates right greater than left with no gross effusion. Heart size magnified by low level of inflation. No demetrius edema. Signed by Hieu Nolen MD 01/09/2017 06:38 P
== END ==
LOC: SKLAB4 10:42
PROVIDERS: ATTEND Internal Medicine
DX: R06.00 Dyspnea, unspecified (principal)

== ENCOUNTER → 2017-01-28 | Outpatient (REF) | payer MEDICARE, MEDICAID ==
[~2017-01-28] MED LIST changes: +ALA1CRE EX; +ALA1CRE TOP; +ALBU83IN INH; +ATEN25TA PO; +CHOL4PW PEG; +DESITIN TOP; +DIFI200T PEG; +FIRS1SOL3 PO; +LANS30CA PO; +LASI40TA EN; +MOUKOT60 MT; +NYST1OIN TOP; +OSMOLIQ7 EN; +OSMOLIQ7 PO; +RISATAB3 EN
[2017-01-28 09:05] LABS: MEAN CORPUSCULAR HEMOGLOBIN 29.8 pg (27.0-33.0); MEAN CORPUSCULAR HGB CONC 31.2 g/dl (32.0-36.5); MEAN CORPUSCULAR VOLUME 95.2 fl (80.0-96.0); RED CELL DISTRIBUTION WIDTH 15.6 % (11.5-14.5); WHITE BLOOD COUNT 7.2 K/mm3 (4.0-10.0)
[2017-01-28 09:50] LABS: CREATININE FOR GFR 1.26 MG/DL (0.70-1.30); GLOMERULAR FILTRATION RATE 58.5 (>35)
[2017-01-28 10:30] LABS: POTASSIUM SERUM 5.2 MEQ/L (3.5-5.1)
== END ==
LOC: SKLAB4 10:51
PROVIDERS: ATTEND Internal Medicine
DX: I50.9 Heart failure, unspecified (principal)

== ENCOUNTER → 2017-02-04 | Outpatient (REF) | payer MEDICARE, MEDICAID ==
[~2017-02-04] MED LIST changes: -ALA1CRE EX; -ALA1CRE TOP; -ATEN25TA PO; -FIRS1SOL3 PO; -LASI40TA EN
== END ==
LOC: SKLAB4 10:01
PROVIDERS: ATTEND Internal Medicine
DX: E86.0 Dehydration (principal); E87.6 Hypokalemia

== ENCOUNTER → 2017-02-11 | Outpatient (REF) | payer MEDICARE, MEDICAID ==
[2017-02-11 10:37] LABS: MEAN CORPUSCULAR HEMOGLOBIN 28.8 pg (27.0-33.0); MEAN CORPUSCULAR HGB CONC 30.5 g/dl (32.0-36.5); MEAN CORPUSCULAR VOLUME 94.5 fl (80.0-96.0); RED CELL DISTRIBUTION WIDTH 15.7 % (11.5-14.5); WHITE BLOOD COUNT 8.4 K/mm3 (4.0-10.0)
[2017-02-11 11:12] LABS: ANION GAP 4 MEQ/L (8-16); BLOOD UREA NITROGEN 42 MG/DL (7-18); CALCIUM LEVEL 7.8 MG/DL (8.8-10.2); CARBON DIOXIDE LEVEL 36 MEQ/L (21-32); CHLORIDE LEVEL 102 MEQ/L (98-107); CREATININE FOR GFR 1.03 MG/DL (0.70-1.30); GLOMERULAR FILTRATION RATE > 60.0 (>35); GLUCOSE, FASTING 116 MG/DL (83-110); POTASSIUM SERUM 4.2 MEQ/L (3.5-5.1); SODIUM LEVEL 142 MEQ/L (136-145)
== END ==
LOC: SKLAB4 10:32
PROVIDERS: ATTEND Internal Medicine
DX: I50.9 Heart failure, unspecified (principal)

== ENCOUNTER → 2017-03-11 | Outpatient (REF) | payer MEDICARE, MEDICAID ==
[2017-03-11 08:34] LABS: MEAN CORPUSCULAR HEMOGLOBIN 29.9 pg (27.0-33.0); MEAN CORPUSCULAR HGB CONC 31.6 g/dl (32.0-36.5); MEAN CORPUSCULAR VOLUME 94.6 fl (80.0-96.0); RED CELL DISTRIBUTION WIDTH 14.5 % (11.5-14.5)
[2017-03-11 09:10] LABS: ANION GAP 5 MEQ/L (8-16); BLOOD UREA NITROGEN 45 MG/DL (7-18); CALCIUM LEVEL 8.2 MG/DL (8.8-10.2); CARBON DIOXIDE LEVEL 35 MEQ/L (21-32); CHLORIDE LEVEL 101 MEQ/L (98-107); CREATININE FOR GFR 1.08 MG/DL (0.70-1.30); GLOMERULAR FILTRATION RATE > 60.0 (>35); GLUCOSE, FASTING 144 MG/DL (83-110); SODIUM LEVEL 141 MEQ/L (136-145)
== END ==
LOC: SKLAB4 11:37
PROVIDERS: ATTEND Internal Medicine
DX: E03.9 Hypothyroidism, unspecified (principal); I10 Essential (primary) hypertension; D64.9 Anemia, unspecified

== ENCOUNTER → 2017-03-17 | Outpatient (REF) | payer MEDICARE, MEDICAID ==
[~2017-03-17] MED LIST changes: +ALA1CRE EX; +ALA1CRE TOP; +ATEN25TA PO; +FIRS1SOL3 PO; +LASI40TA EN
--- NOTE | 2017-03-17 18:55 | REP ---
Clinical: Congestion. Comparison: 01/09/2017. Findings: Examination is limited by portable technique and poor inspiratory effort which accentuate the pulmonary vasculature and interstitium. Chronic cardiomegaly is appreciated. Pulmonary vascular congestion and interstitial edema cannot be excluded. No obvious effusion. No pneumothorax. Skeletal structures stable. Impression: Cannot exclude pulmonary vascular congestion and interstitial edema. Signed by Ross Taylor MD 03/17/2017 06:47 P
[2017-03-17 20:01] LABS: TRIPLE PHOSPHATE CRYSTALS MODERATE
== END ==
LOC: SKLAB4 17:16
PROVIDERS: ATTEND Internal Medicine
DX: R50.9 Fever, unspecified (principal); R09.89 Other specified symptoms and signs involving the circulatory and respiratory systems

== ENCOUNTER → 2017-03-17 | Outpatient (REF) | payer MEDICARE, MEDICAID ==
[~2017-03-17] MED LIST changes: -ALA1CRE EX; -ALA1CRE TOP; -ATEN25TA PO; -FIRS1SOL3 PO; -LASI40TA EN
[2017-03-17 18:32] LABS: BASO % 0.4 % (0.0-1.0); EOS # 0.1 K/mm3 (0.0-0.50); LARGE UNSTAINED CELL # 0.1 K/mm3 (0.0-0.4); LARGE UNSTAINED CELL % 0.7 % (0.0-4.0); LYMPH # 0.9 K/mm3 (1.5-4.5); LYMPH % 6.9 % (24.0-44.0); MEAN CORPUSCULAR HEMOGLOBIN 30.2 pg (27.0-33.0); MEAN CORPUSCULAR HGB CONC 32.5 g/dl (32.0-36.5); MEAN CORPUSCULAR VOLUME 92.9 fl (80.0-96.0); MONO # 0.5 K/mm3 (0.0-0.8); MONO % 4.2 % (0.0-5.0); NEUTROPHILS # 10.8 K/mm3 (1.8-7.7); NEUTROPHILS % 86.7 % (36.0-66.0); PLATELET COUNT, AUTOMATED 215 k/mm3 (150-450); RED CELL DISTRIBUTION WIDTH 14.3 % (11.5-14.5); WHITE BLOOD COUNT 12.4 K/mm3 (4.0-10.0)
== END ==
LOC: SKLAB4 17:20
PROVIDERS: ATTEND Internal Medicine
DX: R50.9 Fever, unspecified (principal)

== ENCOUNTER → 2017-03-17 | Outpatient (REF) | payer MEDICARE, MEDICAID | LOC: SKLAB4 19:03 | PROVIDERS: ATTEND Internal Medicine | DX: D50.9 Iron deficiency anemia, unspecified (principal) ==

== ENCOUNTER → 2017-03-19 | Outpatient (REF) | payer MEDICARE, MEDICAID ==
[~2017-03-19] MED LIST changes: +ALA1CRE EX; +ALA1CRE TOP; +ATEN25TA PO; +LASI40TA EN
[2017-03-20 10:00] LABS: ANION GAP 6 MEQ/L (8-16); BLOOD UREA NITROGEN 41 MG/DL (7-18); CALCIUM LEVEL 8.3 MG/DL (8.8-10.2); CARBON DIOXIDE LEVEL 38 MEQ/L (21-32); CHLORIDE LEVEL 100 MEQ/L (98-107); CREATININE FOR GFR 1.06 MG/DL (0.70-1.30); GLOMERULAR FILTRATION RATE > 60.0 (>35); GLUCOSE, FASTING 156 MG/DL (83-110); POTASSIUM SERUM 3.7 MEQ/L (3.5-5.1); SODIUM LEVEL 144 MEQ/L (136-145)
== END ==
LOC: SKLAB4 09:09
PROVIDERS: ATTEND Internal Medicine
DX: I50.9 Heart failure, unspecified (principal)

== ENCOUNTER 2017-03-29 23:51 | Inpatient (IN) | payer MEDICARE, MEDICAID ==
[~2017-03-29] VITALS: Ht 175.3 cm; Wt 80.7 kg
[~2017-03-29 23:51] MED LIST changes: -ALA1CRE EX; -ALA1CRE TOP; -ATEN25TA PO; -LASI40TA EN
[2017-03-30] MEDS ORDERED: LASI40TA EN (00:23)
[2017-03-30] MEDS ORDERED: ALA1CRE EX (00:23)
[2017-03-30 00:38] LABS: BASO # 0.1 K/mm3 (0.0-0.2); BASO % 0.3 % (0.0-1.0); EOS # 0.1 K/mm3 (0.0-0.50); EOS % 0.4 % (0.0-3.0); LARGE UNSTAINED CELL # 0.1 K/mm3 (0.0-0.4); LARGE UNSTAINED CELL % 0.4 % (0.0-4.0); LYMPH # 0.4 K/mm3 (1.5-4.5); LYMPH % 1.4 % (24.0-44.0); MEAN CORPUSCULAR HGB CONC 32.7 g/dl (32.0-36.5); MEAN CORPUSCULAR VOLUME 91.9 fl (80.0-96.0); MONO # 0.4 K/mm3 (0.0-0.8); MONO % 1.7 % (0.0-5.0); NEUTROPHILS # 25.6 K/mm3 (1.8-7.7); NEUTROPHILS % 95.9 % (36.0-66.0); PLATELET COUNT, AUTOMATED 342 k/mm3 (150-450); WHITE BLOOD COUNT 26.7 K/mm3 (4.0-10.0)
[2017-03-30 00:50] LABS: VENOUS BASE EXCESS 12.4 (-2.0-2.0); VENOUS O2 SATURATION 94.5 % (60.0-80.0); VENOUS PARTIAL PRESSURE O2 75.4 mmHg (30.0-50.0); VENOUS STANDARD HCO3 36.1 MEQ/L
[2017-03-30 00:55] LABS: CALCIUM LEVEL 8.8 MG/DL (8.8-10.2); CREATININE FOR GFR 1.33 MG/DL (0.70-1.30); GLOMERULAR FILTRATION RATE 54.9 (>35); POTASSIUM SERUM 3.6 MEQ/L (3.5-5.1)
[2017-03-30] MEDS ORDERED: FUROSEMIDE 100 MG/10 ML VIAL (J1940) IV ONE (02:45)
[2017-03-30] MEDS ORDERED: VANCOMYCIN HCL 750 MG, VIAL MATE ADAPTER 1 EACH in D5W 250 ML IV ONE (03:45)
[2017-03-30] MEDS ORDERED: IMIPENEM/CILASTATIN 500 MG in D5W MINI-BAG PLUS 100 ML IV ONE (03:45)
[2017-03-30] MEDS ORDERED: ALA1CRE TOP (04:00)
[2017-03-30] MEDS ORDERED: ALBU83IN INH (04:03)
[2017-03-30] MEDS ORDERED: RISATAB3 EN (04:03)
[2017-03-30] MEDS ORDERED: ATEN25TA PO (04:08)
[2017-03-30] MEDS ORDERED: VANCOMYCIN HCL 1,000 MG in D5W 0 ML IV SCH (04:30)
[2017-03-30] MEDS ORDERED: MOM 30ML SUSPENSION UDC PEG PRN (04:45)
[2017-03-30] MEDS ORDERED: ACETAMINOPHEN 650 MG SUPP PR PRN (04:45)
[2017-03-30] MEDS ORDERED: BISACODYL 10 MG SUPP PR PRN (04:45)
[2017-03-30] MEDS ORDERED: SALIVA SUBSTITUTE(MOUTHKOTE) BTL MT PRN (04:45)
[2017-03-30] MEDS ORDERED: FLEET ENEMA PR PRN (04:45)
[2017-03-30 04:52] LABS: ABG BASE EXCESS 9.9 (-2.0-2.0); ABG HCO3 35.6 MEQ/L (22.0-26.0); ABG PARTIAL PRESSURE CO2 53.9 mmHg (35.0-45.0); ABG STANDARD HCO3 33.6 MEQ/L (22.0-26.0); ABG TOTAL CO2 37.3 MEQ/L (23.0-31.0); ABG pH (ARTERIAL) 7.438 UNITS (7.350-7.450)
[2017-03-30 05:02] LABS: MEAN CORPUSCULAR HGB CONC 32.7 g/dl (32.0-36.5); MEAN CORPUSCULAR VOLUME 91.6 fl (80.0-96.0); WHITE BLOOD COUNT 21.3 K/mm3 (4.0-10.0)
[2017-03-30 05:29] LABS: ALBUMIN 2.7 GM/DL (3.2-5.2); ALBUMIN/GLOBULIN RATIO 0.57 (1.00-1.93); BILIRUBIN,TOTAL 0.3 MG/DL (0.2-1.0); CALCIUM LEVEL 8.2 MG/DL (8.8-10.2); CREATININE FOR GFR 1.44 MG/DL (0.70-1.30); GLOMERULAR FILTRATION RATE 50.1 (>35); POTASSIUM SERUM 3.7 MEQ/L (3.5-5.1); TOTAL PROTEIN 7.4 GM/DL (6.4-8.2)
[2017-03-30] MEDS ORDERED: SODIUM CHLORIDE 0.9% 1000 ML IV ONE (05:45)
[2017-03-30 05:55] VITALS: BP 101/63
[2017-03-30] MEDS: ACETAMINOPHEN TAB 650MG DOSE (2X325MG) PEG PRN (06:19)
[2017-03-30] MEDS: LEVOTHYROXINE 0.112 MG TAB (112 MCG) PEG SCH (06:19)
[2017-03-30] MEDS: NS 1,000 ML IV SCH ×2 (06:20→18:10)
[2017-03-30] MEDS: VANCOMYCIN HCL 1,000 MG, VIAL MATE ADAPTER 1 EACH in D5W 250 ML IV SCH (06:37)
[2017-03-30 07:18] VITALS: O2SAT 95
[2017-03-30] MEDS: ALBUTEROL SULFATE 2.5 MG/0.5 ML INH NEB SOLN INH SCH ×4 (07:20→20:07)
[2017-03-30 08:00] VITALS: BP 93/50
[2017-03-30] MEDS: ATENOLOL 25 MG TAB PEG SCH (08:12)
[2017-03-30] MEDS: SERTRALINE HCL 50 MG TAB PEG SCH (08:16)
[2017-03-30] MEDS: HEPARIN SOD (PORCINE) 5000 UNITS/ML VIAL SC SCH ×2 (08:16→21:08)
[2017-03-30] MEDS: LACTOBACILLUS ACIDOPHILUS CAP (BACID) PEG SCH ×2 (08:16→21:08)
[2017-03-30] MEDS: HYDROCORTISONE 1% CREAM 30 GM TOP SCH ×2 (08:17→21:09)
[2017-03-30] MEDS ORDERED: IMIPENEM IV SCH (10:00)
[2017-03-30] MEDS ORDERED: D5W IV SCH (10:00)
[2017-03-30] MEDS ORDERED: CILASTATIN IV SCH (10:00)
[2017-03-30] MEDS: IMIPENEM/CILASTATIN 500 MG in D5W MINI-BAG PLUS 100 ML IV SCH ×2 (10:45→18:10)
[2017-03-30 12:00] VITALS: BP 106/56
[2017-03-30 16:00] VITALS: BP 108/62
[2017-03-30] MEDS: MIRTAZAPINE 7.5MG PER 1/2 TABLET PEG SCH (18:10)
[2017-03-30 20:00] VITALS: BP 104/58
[2017-03-31] VITALS (7 sets, daily range): BP systolic 97–118; BP diastolic 55–65; O2SAT 99
[2017-03-31] MEDS: IMIPENEM/CILASTATIN 500 MG in D5W MINI-BAG PLUS 100 ML IV SCH ×3 (02:36→18:38)
[2017-03-31] MEDS: NS 1,000 ML IV SCH (04:01)
[2017-03-31 05:32] LABS: MEAN CORPUSCULAR HGB CONC 31.9 g/dl (32.0-36.5); RED CELL DISTRIBUTION WIDTH 14.3 % (11.5-14.5); WHITE BLOOD COUNT 16.4 K/mm3 (4.0-10.0)
[2017-03-31 05:33] LABS: CALCIUM LEVEL 7.6 MG/DL (8.8-10.2); CREATININE FOR GFR 1.69 MG/DL (0.70-1.30); GLOMERULAR FILTRATION RATE 41.7 (>35); POTASSIUM SERUM 3.3 MEQ/L (3.5-5.1)
[2017-03-31] MEDS: VANCOMYCIN HCL 1,000 MG, VIAL MATE ADAPTER 1 EACH in D5W 250 ML IV SCH (05:43)
[2017-03-31] MEDS: LEVOTHYROXINE 0.112 MG TAB (112 MCG) PEG SCH (05:43)
[2017-03-31] MEDS ORDERED: POTASSIUM CHLORIDE 10% LIQ 20 MEQ/15 ML UDC PO ONE (07:00)
[2017-03-31] MEDS: ALBUTEROL SULFATE 2.5 MG/0.5 ML INH NEB SOLN INH SCH ×4 (07:16→19:48)
[2017-03-31] MEDS: HEPARIN SOD (PORCINE) 5000 UNITS/ML VIAL SC SCH ×2 (08:46→21:43)
[2017-03-31] MEDS: SERTRALINE HCL 50 MG TAB PEG SCH (08:46)
[2017-03-31] MEDS: HYDROCORTISONE 1% CREAM 30 GM TOP SCH ×2 (08:46→21:43)
[2017-03-31] MEDS: ATENOLOL 25 MG TAB PEG SCH (08:46)
[2017-03-31] MEDS: LACTOBACILLUS ACIDOPHILUS CAP (BACID) PEG SCH ×2 (08:46→21:42)
[2017-03-31] MEDS: MIRTAZAPINE 7.5MG PER 1/2 TABLET PEG SCH (15:03)
[2017-04-01] VITALS (10 sets, daily range): BP systolic 122–160; BP diastolic 59–74; O2SAT 93–94
[2017-04-01] MEDS: IMIPENEM/CILASTATIN 500 MG in D5W MINI-BAG PLUS 100 ML IV SCH ×3 (03:12→17:26)
[2017-04-01 05:27] LABS: MEAN CORPUSCULAR HEMOGLOBIN 29.8 pg (27.0-33.0); MEAN CORPUSCULAR VOLUME 93.3 fl (80.0-96.0); RED CELL DISTRIBUTION WIDTH 14.3 % (11.5-14.5); WHITE BLOOD COUNT 13.2 K/mm3 (4.0-10.0)
[2017-04-01] MEDS: LEVOTHYROXINE 0.112 MG TAB (112 MCG) PEG SCH (05:28)
[2017-04-01] MEDS: VANCOMYCIN HCL 1,000 MG, VIAL MATE ADAPTER 1 EACH in D5W 250 ML IV SCH (05:28)
[2017-04-01 05:48] LABS: CALCIUM LEVEL 7.7 MG/DL (8.8-10.2); CREATININE FOR GFR 1.49 MG/DL (0.70-1.30); GLOMERULAR FILTRATION RATE 48.2 (>35); POTASSIUM SERUM 3.6 MEQ/L (3.5-5.1)
[2017-04-01] MEDS: ALBUTEROL SULFATE 2.5 MG/0.5 ML INH NEB SOLN INH SCH ×4 (07:19→20:29)
[2017-04-01] MEDS: HYDROCORTISONE 1% CREAM 30 GM TOP SCH ×2 (09:00→22:05)
[2017-04-01] MEDS: HEPARIN SOD (PORCINE) 5000 UNITS/ML VIAL SC SCH ×2 (09:14→22:05)
[2017-04-01] MEDS: SERTRALINE HCL 50 MG TAB PEG SCH (09:15)
[2017-04-01] MEDS: ATENOLOL 25 MG TAB PEG SCH (09:15)
[2017-04-01] MEDS: LACTOBACILLUS ACIDOPHILUS CAP (BACID) PEG SCH ×2 (09:15→22:04)
[2017-04-01] MEDS: MIRTAZAPINE 7.5MG PER 1/2 TABLET PEG SCH (17:26)
[2017-04-01] MEDS: ACETAMINOPHEN TAB 650MG DOSE (2X325MG) PEG PRN (17:26)
[2017-04-02] MEDS ORDERED: SLF 3 ML SYR IV PRN (01:00)
[2017-04-02] MEDS: IMIPENEM/CILASTATIN 500 MG in D5W MINI-BAG PLUS 100 ML IV SCH ×3 (02:31→17:42)
[2017-04-02 04:28] VITALS: BP 141/70
[2017-04-02] MEDS: VANCOMYCIN HCL 1,000 MG, VIAL MATE ADAPTER 1 EACH in D5W 250 ML IV SCH (05:31)
[2017-04-02] MEDS: LEVOTHYROXINE 0.112 MG TAB (112 MCG) PEG SCH (05:32)
[2017-04-02] MEDS: SLF 3 ML SYR IV SCH ×3 (05:32→21:21)
[2017-04-02 06:16] LABS: MEAN CORPUSCULAR HEMOGLOBIN 29.5 pg (27.0-33.0); MEAN CORPUSCULAR HGB CONC 30.9 g/dl (32.0-36.5); MEAN CORPUSCULAR VOLUME 95.4 fl (80.0-96.0); RED CELL DISTRIBUTION WIDTH 14.1 % (11.5-14.5); WHITE BLOOD COUNT 10.4 K/mm3 (4.0-10.0)
[2017-04-02 06:33] LABS: CALCIUM LEVEL 8.2 MG/DL (8.8-10.2); CREATININE FOR GFR 1.24 MG/DL (0.70-1.30); GLOMERULAR FILTRATION RATE 59.6 (>35); POTASSIUM SERUM 3.8 MEQ/L (3.5-5.1)
[2017-04-02] MEDS: ALBUTEROL SULFATE 2.5 MG/0.5 ML INH NEB SOLN INH SCH ×4 (07:19→20:46)
[2017-04-02 08:00] VITALS: BP 127/73
[2017-04-02] MEDS: SERTRALINE HCL 50 MG TAB PEG SCH (10:07)
[2017-04-02] MEDS: LACTOBACILLUS ACIDOPHILUS CAP (BACID) PEG SCH ×2 (10:07→21:21)
[2017-04-02] MEDS: HEPARIN SOD (PORCINE) 5000 UNITS/ML VIAL SC SCH ×2 (10:07→21:20)
[2017-04-02] MEDS: ATENOLOL 25 MG TAB PEG SCH (10:07)
[2017-04-02] MEDS: HYDROCORTISONE 1% CREAM 30 GM TOP SCH ×2 (10:08→21:21)
[2017-04-02 12:00] VITALS: BP 134/66
[2017-04-02 16:00] VITALS: BP 142/80
[2017-04-02] MEDS: MIRTAZAPINE 7.5MG PER 1/2 TABLET PEG SCH (17:42)
[2017-04-02 19:35] VITALS: BP 140/78
[2017-04-03] VITALS (9 sets, daily range): BP systolic 118–153; BP diastolic 65–81; O2SAT 94
[2017-04-03] MEDS ORDERED: FUROSEMIDE 40 MG/4 ML VIAL (J1940) IV ONE ×2 (01:30→14:00)
[2017-04-03] MEDS: IMIPENEM/CILASTATIN 500 MG in D5W MINI-BAG PLUS 100 ML IV SCH ×3 (03:05→18:26)
[2017-04-03 05:51] LABS: MEAN CORPUSCULAR HEMOGLOBIN 29.7 pg (27.0-33.0); MEAN CORPUSCULAR HGB CONC 31.7 g/dl (32.0-36.5); MEAN CORPUSCULAR VOLUME 93.8 fl (80.0-96.0); WHITE BLOOD COUNT 10.2 K/mm3 (4.0-10.0)
[2017-04-03 06:08] LABS: ANION GAP 1 MEQ/L (8-16); BLOOD UREA NITROGEN 41 MG/DL (7-18); CALCIUM LEVEL 9.1 MG/DL (8.8-10.2); CARBON DIOXIDE LEVEL 43 MEQ/L (21-32); CHLORIDE LEVEL 97 MEQ/L (98-107); CREATININE FOR GFR 1.15 MG/DL (0.70-1.30); GLOMERULAR FILTRATION RATE > 60.0 (>35); GLUCOSE, FASTING 144 MG/DL (83-110); POTASSIUM SERUM 3.4 MEQ/L (3.5-5.1); SODIUM LEVEL 141 MEQ/L (136-145)
[2017-04-03] MEDS: SLF 3 ML SYR IV SCH ×3 (06:08→21:22)
[2017-04-03] MEDS: LEVOTHYROXINE 0.112 MG TAB (112 MCG) PEG SCH (06:08)
[2017-04-03] MEDS: VANCOMYCIN HCL 1,000 MG, VIAL MATE ADAPTER 1 EACH in D5W 250 ML IV SCH (06:08)
[2017-04-03] MEDS: ALBUTEROL SULFATE 2.5 MG/0.5 ML INH NEB SOLN INH SCH ×4 (07:53→20:21)
[2017-04-03] MEDS ORDERED: POTASSIUM CHLORIDE 10% LIQ 20 MEQ/15 ML UDC PEG ONE (08:45)
[2017-04-03] MEDS: SERTRALINE HCL 50 MG TAB PEG SCH (10:00)
[2017-04-03] MEDS: HEPARIN SOD (PORCINE) 5000 UNITS/ML VIAL SC SCH ×2 (10:00→21:22)
[2017-04-03] MEDS: LACTOBACILLUS ACIDOPHILUS CAP (BACID) PEG SCH ×2 (10:00→21:00)
[2017-04-03] MEDS: ATENOLOL 25 MG TAB PEG SCH (10:01)
[2017-04-03] MEDS: HYDROCORTISONE 1% CREAM 30 GM TOP SCH ×2 (10:05→21:00)
[2017-04-03] MEDS: ACETAMINOPHEN TAB 650MG DOSE (2X325MG) PEG PRN (11:35)
[2017-04-03] MEDS ORDERED: FUROSEMIDE 20 MG/2 ML VIAL (J1940) IV ONE (13:45)
[2017-04-03] MEDS: MIRTAZAPINE 7.5MG PER 1/2 TABLET PEG SCH (17:09)
[2017-04-04 04:00] VITALS: BP 141/71
[2017-04-04] MEDS: IMIPENEM/CILASTATIN 500 MG in D5W MINI-BAG PLUS 100 ML IV SCH ×3 (04:40→18:25)
[2017-04-04] MEDS: VANCOMYCIN HCL 1,000 MG, VIAL MATE ADAPTER 1 EACH in D5W 250 ML IV SCH (05:33)
[2017-04-04] MEDS: SLF 3 ML SYR IV SCH ×3 (05:33→21:57)
[2017-04-04] MEDS: LEVOTHYROXINE 0.112 MG TAB (112 MCG) PEG SCH (05:33)
[2017-04-04 05:44] LABS: MEAN CORPUSCULAR HEMOGLOBIN 29.7 pg (27.0-33.0); MEAN CORPUSCULAR HGB CONC 32.2 g/dl (32.0-36.5); MEAN CORPUSCULAR VOLUME 92.3 fl (80.0-96.0); RED CELL DISTRIBUTION WIDTH 14.2 % (11.5-14.5); WHITE BLOOD COUNT 12.5 K/mm3 (4.0-10.0)
[2017-04-04 05:59] LABS: ANION GAP 6 MEQ/L (8-16); BLOOD UREA NITROGEN 39 MG/DL (7-18); CALCIUM LEVEL 8.8 MG/DL (8.8-10.2); CARBON DIOXIDE LEVEL 42 MEQ/L (21-32); CHLORIDE LEVEL 92 MEQ/L (98-107); CREATININE FOR GFR 1.13 MG/DL (0.70-1.30); GLOMERULAR FILTRATION RATE > 60.0 (>35); GLUCOSE, FASTING 152 MG/DL (83-110); POTASSIUM SERUM 3.4 MEQ/L (3.5-5.1); SODIUM LEVEL 140 MEQ/L (136-145)
[2017-04-04] MEDS: ALBUTEROL SULFATE 2.5 MG/0.5 ML INH NEB SOLN INH SCH ×4 (07:17→18:01)
[2017-04-04 08:00] VITALS: BP 134/72
[2017-04-04] MEDS: HEPARIN SOD (PORCINE) 5000 UNITS/ML VIAL SC SCH ×2 (08:44→21:56)
[2017-04-04] MEDS: LACTOBACILLUS ACIDOPHILUS CAP (BACID) PEG SCH ×2 (08:44→21:56)
[2017-04-04] MEDS: SERTRALINE HCL 50 MG TAB PEG SCH (08:45)
[2017-04-04] MEDS: ATENOLOL 25 MG TAB PEG SCH (08:46)
[2017-04-04] MEDS: HYDROCORTISONE 1% CREAM 30 GM TOP SCH ×2 (08:47→21:00)
[2017-04-04] MEDS ORDERED: FUROSEMIDE 40 MG TAB PO SCH (09:00)
[2017-04-04] MEDS ORDERED: POTASSIUM CHLORIDE 10 MEQ SR TABLET PO SCH (09:00)
[2017-04-04 12:00] VITALS: BP 106/63
[2017-04-04] MEDS: ACETAMINOPHEN TAB 650MG DOSE (2X325MG) PEG PRN (13:51)
[2017-04-04 16:00] VITALS: BP 144/85
[2017-04-04] MEDS: POTASSIUM CHLORIDE 10% LIQ 20 MEQ/15 ML UDC PO SCH (16:47)
[2017-04-04] MEDS: MIRTAZAPINE 7.5MG PER 1/2 TABLET PEG SCH (16:47)
[2017-04-04 20:00] VITALS: BP 126/58
[2017-04-04] MEDS: FUROSEMIDE 40 MG TAB PO SCH (21:56)
[2017-04-04 23:59] VITALS: BP 133/73
[2017-04-05] MEDS: IMIPENEM/CILASTATIN 500 MG in D5W MINI-BAG PLUS 100 ML IV SCH ×3 (03:48→18:13)
[2017-04-05 04:00] VITALS: BP 138/67
[2017-04-05] MEDS: SLF 3 ML SYR IV SCH ×3 (05:39→20:39)
[2017-04-05] MEDS: LEVOTHYROXINE 112MCG TABLET (0.112MG) PEG SCH (05:39)
[2017-04-05 05:50] LABS: MEAN CORPUSCULAR HEMOGLOBIN 29.4 pg (27.0-33.0); MEAN CORPUSCULAR HGB CONC 31.8 g/dl (32.0-36.5); MEAN CORPUSCULAR VOLUME 92.4 fl (80.0-96.0); RED CELL DISTRIBUTION WIDTH 14.1 % (11.5-14.5); WHITE BLOOD COUNT 10.6 K/mm3 (4.0-10.0)
[2017-04-05] MEDS ORDERED: VANCOMYCIN HCL 750 MG, VIAL MATE ADAPTER 1 EACH in D5W 250 ML IV SCH (06:00)
[2017-04-05 06:04] LABS: ANION GAP 5 MEQ/L (8-16); BLOOD UREA NITROGEN 40 MG/DL (7-18); CALCIUM LEVEL 9.4 MG/DL (8.8-10.2); CARBON DIOXIDE LEVEL 43 MEQ/L (21-32); CHLORIDE LEVEL 89 MEQ/L (98-107); CREATININE FOR GFR 1.17 MG/DL (0.70-1.30); GLOMERULAR FILTRATION RATE > 60.0 (>35); GLUCOSE, FASTING 151 MG/DL (83-110); POTASSIUM SERUM 3.5 MEQ/L (3.5-5.1); SODIUM LEVEL 137 MEQ/L (136-145)
[2017-04-05] MEDS: ALBUTEROL SULFATE 2.5 MG/0.5 ML INH NEB SOLN INH SCH ×4 (07:32→20:10)
[2017-04-05 08:00] VITALS: BP 132/78
[2017-04-05] MEDS: POTASSIUM CHLORIDE 10% LIQ 20 MEQ/15 ML UDC PO SCH (09:39)
[2017-04-05] MEDS: SERTRALINE HCL 50 MG TAB PEG SCH (09:39)
[2017-04-05] MEDS: FUROSEMIDE 40 MG TAB PO SCH ×2 (09:41→20:38)
[2017-04-05] MEDS: LACTOBACILLUS ACIDOPHILUS CAP (BACID) PEG SCH ×2 (09:41→20:38)
[2017-04-05] MEDS: ATENOLOL 25 MG TAB PEG SCH (09:41)
[2017-04-05] MEDS: HYDROCORTISONE 1% CREAM 30 GM TOP SCH ×2 (09:42→20:39)
[2017-04-05] MEDS: HEPARIN SOD (PORCINE) 5000 UNITS/ML VIAL SC SCH ×2 (09:42→20:39)
[2017-04-05 09:53] LABS: ABG BASE EXCESS 21.3 (-2.0-2.0); ABG HCO3 50.9 MEQ/L (22.0-26.0); ABG PARTIAL PRESSURE O2 159.5 mmHg (75.0-100.0); ABG STANDARD HCO3 45.6 MEQ/L (22.0-26.0); ABG TOTAL CO2 53.9 MEQ/L (23.0-31.0); ABG pH (ARTERIAL) 7.343 UNITS (7.350-7.450)
[2017-04-05 09:56] LABS: ABG PARTIAL PRESSURE CO2 95.9 mmHg (35.0-45.0)
[2017-04-05 12:00] VITALS: BP 124/61
[2017-04-05 14:34] LABS: ABG BASE EXCESS 13.3 (-2.0-2.0); ABG HCO3 41.5 MEQ/L (22.0-26.0); ABG PARTIAL PRESSURE O2 100.6 mmHg (75.0-100.0); ABG STANDARD HCO3 37.1 MEQ/L (22.0-26.0); ABG TOTAL CO2 43.9 MEQ/L (23.0-31.0); ABG pH (ARTERIAL) 7.347 UNITS (7.350-7.450)
[2017-04-05 14:38] LABS: ABG PARTIAL PRESSURE CO2 77.5 mmHg (35.0-45.0)
[2017-04-05 16:00] VITALS: BP 137/73
[2017-04-05] MEDS: MIRTAZAPINE 7.5MG PER 1/2 TABLET PEG SCH (16:20)
[2017-04-05 20:00] VITALS: BP 123/61
[2017-04-05 23:59] VITALS: BP 140/63
[2017-04-06] MEDS: IMIPENEM/CILASTATIN 500 MG in D5W MINI-BAG PLUS 100 ML IV SCH ×3 (02:29→18:44)
[2017-04-06 04:45] VITALS: BP 126/73
[2017-04-06] MEDS: LEVOTHYROXINE 112MCG TABLET (0.112MG) PEG SCH (05:15)
[2017-04-06] MEDS: SLF 3 ML SYR IV SCH ×3 (05:15→21:27)
[2017-04-06 05:37] LABS: MEAN CORPUSCULAR HEMOGLOBIN 29.8 pg (27.0-33.0); MEAN CORPUSCULAR HGB CONC 31.9 g/dl (32.0-36.5); MEAN CORPUSCULAR VOLUME 93.1 fl (80.0-96.0); RED CELL DISTRIBUTION WIDTH 14.3 % (11.5-14.5)
[2017-04-06 05:44] LABS: ANION GAP 6 MEQ/L (8-16); BLOOD UREA NITROGEN 45 MG/DL (7-18); CALCIUM LEVEL 9.7 MG/DL (8.8-10.2); CARBON DIOXIDE LEVEL 44 MEQ/L (21-32); CHLORIDE LEVEL 87 MEQ/L (98-107); CREATININE FOR GFR 1.23 MG/DL (0.70-1.30); GLOMERULAR FILTRATION RATE > 60.0 (>35); GLUCOSE, FASTING 159 MG/DL (83-110); POTASSIUM SERUM 3.2 MEQ/L (3.5-5.1); SODIUM LEVEL 137 MEQ/L (136-145)
[2017-04-06] MEDS: ALBUTEROL SULFATE 2.5 MG/0.5 ML INH NEB SOLN INH SCH ×4 (07:04→20:08)
[2017-04-06 08:00] VITALS: BP 110/66
[2017-04-06] MEDS ORDERED: FUROSEMIDE 40 MG TAB PO SCH (09:00)
[2017-04-06] MEDS ORDERED: FUROSEMIDE 20 MG/2 ML VIAL (J1940) IV ONE (09:00)
[2017-04-06] MEDS ORDERED: KCL 10MEQ IN 100ML SWI (KRUN) 10 MEQ in APPROPRIATE DILUENT 1 EA IV ONE ×2 (09:00)
[2017-04-06] MEDS: POTASSIUM CHLORIDE 10% LIQ 20 MEQ/15 ML UDC PO SCH (09:53)
[2017-04-06] MEDS: SERTRALINE HCL 50 MG TAB PEG SCH (09:54)
[2017-04-06] MEDS: guaiFENesin ER 600 MG TAB PO SCH ×2 (09:54→21:25)
[2017-04-06] MEDS: LACTOBACILLUS ACIDOPHILUS CAP (BACID) PEG SCH ×2 (09:54→21:26)
[2017-04-06] MEDS: ATENOLOL 25 MG TAB PEG SCH (09:54)
[2017-04-06] MEDS: HEPARIN SOD (PORCINE) 5000 UNITS/ML VIAL SC SCH ×2 (09:55→21:25)
[2017-04-06] MEDS: HYDROCORTISONE 1% CREAM 30 GM TOP SCH ×2 (09:55→22:00)
[2017-04-06 12:00] VITALS: BP 116/68
[2017-04-06 14:38] VITALS: BP 108/62
[2017-04-06] MEDS: MIRTAZAPINE 7.5MG PER 1/2 TABLET PEG SCH (16:29)
[2017-04-06 22:00] VITALS: BP 110/62
[2017-04-07] MEDS: IMIPENEM/CILASTATIN 500 MG in D5W MINI-BAG PLUS 100 ML IV SCH ×3 (03:08→18:17)
[2017-04-07 05:28] LABS: MEAN CORPUSCULAR HEMOGLOBIN 29.4 pg (27.0-33.0); MEAN CORPUSCULAR HGB CONC 31.9 g/dl (32.0-36.5); MEAN CORPUSCULAR VOLUME 92.2 fl (80.0-96.0); RED CELL DISTRIBUTION WIDTH 14.1 % (11.5-14.5); WHITE BLOOD COUNT 12.5 K/mm3 (4.0-10.0)
[2017-04-07] MEDS: LEVOTHYROXINE 112MCG TABLET (0.112MG) PEG SCH (05:53)
[2017-04-07] MEDS: SLF 3 ML SYR IV SCH ×3 (05:53→20:49)
[2017-04-07 06:00] VITALS: BP 114/66
[2017-04-07 06:19] LABS: CALCIUM LEVEL 8.9 MG/DL (8.8-10.2); CREATININE FOR GFR 1.36 MG/DL (0.70-1.30); GLOMERULAR FILTRATION RATE 53.5 (>35); POTASSIUM SERUM 4.5 MEQ/L (3.5-5.1)
[2017-04-07] MEDS: ALBUTEROL SULFATE 2.5 MG/0.5 ML INH NEB SOLN INH SCH ×4 (08:06→20:00)
[2017-04-07] MEDS: HYDROCORTISONE 1% CREAM 30 GM TOP SCH ×2 (08:40→20:48)
[2017-04-07] MEDS: HEPARIN SOD (PORCINE) 5000 UNITS/ML VIAL SC SCH ×2 (08:40→20:48)
[2017-04-07] MEDS: SERTRALINE HCL 50 MG TAB PEG SCH (08:42)
[2017-04-07] MEDS: guaiFENesin ER 600 MG TAB PO SCH ×2 (08:42→20:48)
[2017-04-07] MEDS: LACTOBACILLUS ACIDOPHILUS CAP (BACID) PEG SCH ×2 (08:42→20:48)
[2017-04-07] MEDS: POTASSIUM CHLORIDE 10% LIQ 20 MEQ/15 ML UDC PO SCH (08:42)
[2017-04-07] MEDS: ATENOLOL 25 MG TAB PEG SCH (08:43)
[2017-04-07 14:00] VITALS: BP 106/68
[2017-04-07] MEDS: MIRTAZAPINE 7.5MG PER 1/2 TABLET PEG SCH (16:41)
[2017-04-07 22:00] VITALS: BP 124/48
[2017-04-08] MEDS ORDERED: ALBUTEROL SULFATE 2.5 MG/0.5 ML INH NEB SOLN NEB PRN (01:30)
[2017-04-08 02:00] VITALS: BP 124/70
[2017-04-08 02:28] LABS: ABG BASE EXCESS 14.4 (-2.0-2.0); ABG HCO3 39.4 MEQ/L (22.0-26.0); ABG PARTIAL PRESSURE CO2 51.7 mmHg (35.0-45.0); ABG PARTIAL PRESSURE O2 56.5 mmHg (75.0-100.0); ABG STANDARD HCO3 38.1 MEQ/L (22.0-26.0)
[2017-04-08] MEDS: IMIPENEM/CILASTATIN 500 MG in D5W MINI-BAG PLUS 100 ML IV SCH (03:46)
[2017-04-08] MEDS: SLF 3 ML SYR IV SCH ×3 (05:54→20:41)
[2017-04-08] MEDS: LEVOTHYROXINE 112MCG TABLET (0.112MG) PEG SCH (05:54)
[2017-04-08 06:00] VITALS: BP 138/80
[2017-04-08 06:09] LABS: MEAN CORPUSCULAR HGB CONC 32.6 g/dl (32.0-36.5); MEAN CORPUSCULAR VOLUME 91.8 fl (80.0-96.0); RED CELL DISTRIBUTION WIDTH 14.1 % (11.5-14.5); WHITE BLOOD COUNT 14.3 K/mm3 (4.0-10.0)
[2017-04-08 06:37] LABS: CALCIUM LEVEL 9.6 MG/DL (8.8-10.2); CREATININE FOR GFR 1.34 MG/DL (0.70-1.30); GLOMERULAR FILTRATION RATE 54.5 (>35); POTASSIUM SERUM 3.8 MEQ/L (3.5-5.1)
[2017-04-08 08:12] VITALS: O2SAT 95
[2017-04-08] MEDS: ALBUTEROL SULFATE 2.5 MG/0.5 ML INH NEB SOLN INH SCH ×4 (08:12→19:42)
[2017-04-08] MEDS: ATENOLOL 25 MG TAB PEG SCH (08:41)
[2017-04-08] MEDS: POTASSIUM CHLORIDE 10% LIQ 20 MEQ/15 ML UDC PO SCH (08:41)
[2017-04-08] MEDS: SERTRALINE HCL 50 MG TAB PEG SCH (08:41)
[2017-04-08] MEDS: LACTOBACILLUS ACIDOPHILUS CAP (BACID) PEG SCH ×2 (08:42→20:40)
[2017-04-08] MEDS: guaiFENesin ER 600 MG TAB PO SCH ×2 (08:42→20:40)
[2017-04-08] MEDS: HEPARIN SOD (PORCINE) 5000 UNITS/ML VIAL SC SCH ×2 (08:42→20:40)
[2017-04-08] MEDS: HYDROCORTISONE 1% CREAM 30 GM TOP SCH ×2 (08:43→20:41)
[2017-04-08 14:00] VITALS: BP 132/63
[2017-04-08] MEDS: MIRTAZAPINE 7.5MG PER 1/2 TABLET PEG SCH (17:06)
[2017-04-08 22:00] VITALS: BP 108/64
[2017-04-09] MEDS: SLF 3 ML SYR IV SCH ×3 (05:50→22:16)
[2017-04-09] MEDS: LEVOTHYROXINE 112MCG TABLET (0.112MG) PEG SCH (05:51)
[2017-04-09 06:00] VITALS: BP 102/60
[2017-04-09] MEDS: ALBUTEROL SULFATE 2.5 MG/0.5 ML INH NEB SOLN INH SCH ×4 (08:08→20:55)
[2017-04-09 08:50] LABS: MEAN CORPUSCULAR HEMOGLOBIN 30.1 pg (27.0-33.0); MEAN CORPUSCULAR HGB CONC 32.3 g/dl (32.0-36.5); MEAN CORPUSCULAR VOLUME 92.9 fl (80.0-96.0); RED CELL DISTRIBUTION WIDTH 14.2 % (11.5-14.5); WHITE BLOOD COUNT 12.1 K/mm3 (4.0-10.0)
[2017-04-09] MEDS: POTASSIUM CHLORIDE 10% LIQ 20 MEQ/15 ML UDC PO SCH (09:21)
[2017-04-09] MEDS: HEPARIN SOD (PORCINE) 5000 UNITS/ML VIAL SC SCH ×2 (09:21→22:16)
[2017-04-09] MEDS: SERTRALINE HCL 50 MG TAB PEG SCH (09:22)
[2017-04-09] MEDS: LACTOBACILLUS ACIDOPHILUS CAP (BACID) PEG SCH ×2 (09:25→22:15)
[2017-04-09] MEDS: ATENOLOL 25 MG TAB PEG SCH (09:25)
[2017-04-09] MEDS: guaiFENesin ER 600 MG TAB PO SCH ×2 (09:25→22:15)
[2017-04-09] MEDS: HYDROCORTISONE 1% CREAM 30 GM TOP SCH ×2 (09:25→22:18)
[2017-04-09 10:08] LABS: CALCIUM LEVEL 9.2 MG/DL (8.8-10.2); CREATININE FOR GFR 1.27 MG/DL (0.70-1.30); GLOMERULAR FILTRATION RATE 57.9 (>35); POTASSIUM SERUM 4.5 MEQ/L (3.5-5.1)
[2017-04-09 14:00] VITALS: BP 153/74
[2017-04-09] MEDS: PANTOPRAZOLE 40MG INJ (PROTONIX) (C9113) IV SCH ×2 (14:00→22:15)
[2017-04-09] MEDS: MIRTAZAPINE 7.5MG PER 1/2 TABLET PEG SCH (17:00)
[2017-04-09 22:00] VITALS: BP 122/70
[2017-04-09] MEDS: FIDAXOMICIN 200 MG TAB (DIFICID) GT SCH (22:15)
[2017-04-10] MEDS: ACETAMINOPHEN TAB 650MG DOSE (2X325MG) PEG PRN ×2 (04:33→18:59)
[2017-04-10 06:00] VITALS: BP 110/68
[2017-04-10] MEDS: SLF 3 ML SYR IV SCH ×2 (06:10→10:12)
[2017-04-10] MEDS: LEVOTHYROXINE 112MCG TABLET (0.112MG) PEG SCH (06:10)
[2017-04-10 07:14] LABS: MEAN CORPUSCULAR HGB CONC 32.4 g/dl (32.0-36.5); MEAN CORPUSCULAR VOLUME 92.6 fl (80.0-96.0); RED CELL DISTRIBUTION WIDTH 14.1 % (11.5-14.5); WHITE BLOOD COUNT 14.6 K/mm3 (4.0-10.0)
[2017-04-10] MEDS: ALBUTEROL SULFATE 2.5 MG/0.5 ML INH NEB SOLN INH SCH ×4 (07:26→19:30)
[2017-04-10 07:38] LABS: CREATININE FOR GFR 1.29 MG/DL (0.70-1.30); GLOMERULAR FILTRATION RATE 56.9 (>35); POTASSIUM SERUM 4.5 MEQ/L (3.5-5.1)
[2017-04-10] MEDS: ATENOLOL 25 MG TAB PEG SCH (10:10)
[2017-04-10] MEDS: POTASSIUM CHLORIDE 10% LIQ 20 MEQ/15 ML UDC PO SCH (10:10)
[2017-04-10] MEDS: LACTOBACILLUS ACIDOPHILUS CAP (BACID) PEG SCH ×2 (10:10→20:27)
[2017-04-10] MEDS: HYDROCORTISONE 1% CREAM 30 GM TOP SCH (10:11)
[2017-04-10] MEDS: HEPARIN SOD (PORCINE) 5000 UNITS/ML VIAL SC SCH ×2 (10:11→20:27)
[2017-04-10] MEDS: SERTRALINE HCL 50 MG TAB PEG SCH (10:11)
[2017-04-10] MEDS: guaiFENesin ER 600 MG TAB PO SCH ×2 (10:11→20:27)
[2017-04-10] MEDS: PANTOPRAZOLE 40MG INJ (PROTONIX) (C9113) IV SCH ×2 (10:11→20:27)
[2017-04-10] MEDS: FIDAXOMICIN 200 MG TAB (DIFICID) GT SCH ×2 (13:37→20:27)
[2017-04-10 14:00] VITALS: BP 111/70
[2017-04-10] MEDS: MIRTAZAPINE 7.5MG PER 1/2 TABLET PEG SCH (16:50)
[2017-04-10 22:00] VITALS: BP 114/70
[2017-04-11] MEDS: SLF 3 ML SYR IV SCH ×4 (00:42→21:26)
[2017-04-11] MEDS: HYDROCORTISONE 1% CREAM 30 GM TOP SCH ×3 (00:42→21:26)
[2017-04-11] MEDS: LEVOTHYROXINE 112MCG TABLET (0.112MG) PEG SCH (05:29)
[2017-04-11 06:00] VITALS: BP 110/70
[2017-04-11 06:45] LABS: MEAN CORPUSCULAR HEMOGLOBIN 29.1 pg (27.0-33.0); MEAN CORPUSCULAR HGB CONC 31.6 g/dl (32.0-36.5); MEAN CORPUSCULAR VOLUME 92.2 fl (80.0-96.0); RED CELL DISTRIBUTION WIDTH 13.9 % (11.5-14.5)
[2017-04-11 06:54] LABS: CALCIUM LEVEL 8.5 MG/DL (8.8-10.2); CREATININE FOR GFR 1.25 MG/DL (0.70-1.30); POTASSIUM SERUM 4.5 MEQ/L (3.5-5.1)
[2017-04-11] MEDS: ALBUTEROL SULFATE 2.5 MG/0.5 ML INH NEB SOLN INH SCH ×3 (08:19→20:07)
[2017-04-11 08:47] VITALS: BP 115/76
[2017-04-11] MEDS: guaiFENesin ER 600 MG TAB PO SCH ×2 (09:00→21:00)
[2017-04-11 09:19] VITALS: BP 115/76
[2017-04-11] MEDS: LACTOBACILLUS ACIDOPHILUS CAP (BACID) PEG SCH ×2 (09:52→21:25)
[2017-04-11] MEDS: ACETAMINOPHEN TAB 650MG DOSE (2X325MG) PEG PRN ×2 (09:55→17:04)
[2017-04-11] MEDS: POTASSIUM CHLORIDE 10% LIQ 20 MEQ/15 ML UDC PO SCH (09:55)
[2017-04-11] MEDS: FIDAXOMICIN 200 MG TAB (DIFICID) GT SCH ×2 (09:55→21:25)
[2017-04-11] MEDS: SERTRALINE HCL 50 MG TAB PEG SCH (09:56)
[2017-04-11] MEDS: ATENOLOL 25 MG TAB PEG SCH (09:57)
[2017-04-11] MEDS: PANTOPRAZOLE 40MG INJ (PROTONIX) (C9113) IV SCH ×2 (09:58→21:24)
[2017-04-11] MEDS: HEPARIN SOD (PORCINE) 5000 UNITS/ML VIAL SC SCH ×2 (09:59→21:25)
[2017-04-11 15:57] VITALS: BP 115/72
[2017-04-11] MEDS: MIRTAZAPINE 7.5MG PER 1/2 TABLET PEG SCH (17:03)
[2017-04-11 22:00] VITALS: BP 110/64
[2017-04-12] MEDS: LEVOTHYROXINE 112MCG TABLET (0.112MG) PEG SCH (05:48)
[2017-04-12] MEDS: SLF 3 ML SYR IV SCH ×3 (05:49→21:37)
[2017-04-12 06:00] VITALS: BP 140/82
[2017-04-12 06:04] LABS: MEAN CORPUSCULAR HEMOGLOBIN 29.6 pg (27.0-33.0); MEAN CORPUSCULAR HGB CONC 31.5 g/dl (32.0-36.5); RED CELL DISTRIBUTION WIDTH 14.3 % (11.5-14.5); WHITE BLOOD COUNT 13.9 K/mm3 (4.0-10.0)
[2017-04-12 06:19] LABS: ANION GAP 2 MEQ/L (8-16); BLOOD UREA NITROGEN 42 MG/DL (7-18); CALCIUM LEVEL 8.5 MG/DL (8.8-10.2); CARBON DIOXIDE LEVEL 38 MEQ/L (21-32); CHLORIDE LEVEL 95 MEQ/L (98-107); CREATININE FOR GFR 1.22 MG/DL (0.70-1.30); GLOMERULAR FILTRATION RATE > 60.0 (>35); GLUCOSE, FASTING 101 MG/DL (83-110); SODIUM LEVEL 135 MEQ/L (136-145)
[2017-04-12] MEDS: guaiFENesin ER 600 MG TAB PO SCH (09:00)
[2017-04-12] MEDS: ALBUTEROL SULFATE 2.5 MG/0.5 ML INH NEB SOLN INH SCH ×4 (09:28→20:20)
[2017-04-12] MEDS: PANTOPRAZOLE 40MG INJ (PROTONIX) (C9113) IV SCH ×2 (10:15→21:36)
[2017-04-12] MEDS: HEPARIN SOD (PORCINE) 5000 UNITS/ML VIAL SC SCH ×2 (10:16→21:36)
[2017-04-12] MEDS: SERTRALINE HCL 50 MG TAB PEG SCH (10:16)
[2017-04-12] MEDS: LACTOBACILLUS ACIDOPHILUS CAP (BACID) PEG SCH ×2 (10:16→21:36)
[2017-04-12] MEDS: ATENOLOL 25 MG TAB PEG SCH (10:17)
[2017-04-12] MEDS: MIRTAZAPINE 7.5MG PER 1/2 TABLET PEG SCH (10:17)
[2017-04-12] MEDS: HYDROCORTISONE 1% CREAM 30 GM TOP SCH ×2 (10:30→21:37)
[2017-04-12] MEDS: FIDAXOMICIN 200 MG TAB (DIFICID) GT SCH ×2 (12:30→21:37)
[2017-04-12 14:00] VITALS: BP 136/78
[2017-04-12] MEDS: ACETAMINOPHEN TAB 650MG DOSE (2X325MG) PEG PRN (16:07)
[2017-04-12 22:00] VITALS: BP 110/62
[2017-04-13] MEDS: VANCOMYCIN ORAL SOL 250MG/5ML ORAL SYRINGE PO SCH ×5 (00:05→23:10)
[2017-04-13 05:50] LABS: MEAN CORPUSCULAR VOLUME 93.7 fl (80.0-96.0); RED CELL DISTRIBUTION WIDTH 14.4 % (11.5-14.5); WHITE BLOOD COUNT 13.2 K/mm3 (4.0-10.0)
[2017-04-13] MEDS: SLF 3 ML SYR IV SCH ×3 (05:52→21:32)
[2017-04-13] MEDS: LEVOTHYROXINE 112MCG TABLET (0.112MG) PEG SCH (05:52)
[2017-04-13 06:00] VITALS: BP 114/64
[2017-04-13 06:33] LABS: BLOOD UREA NITROGEN 39 MG/DL (7-18); CALCIUM LEVEL 8.2 MG/DL (8.8-10.2); CARBON DIOXIDE LEVEL 39 MEQ/L (21-32); CHLORIDE LEVEL 99 MEQ/L (98-107); CREATININE FOR GFR 1.27 MG/DL (0.70-1.30); GLOMERULAR FILTRATION RATE 57.9 (>35); GLUCOSE, FASTING 102 MG/DL (83-110); POTASSIUM SERUM 4.6 MEQ/L (3.5-5.1); SODIUM LEVEL 137 MEQ/L (136-145)
[2017-04-13] MEDS: ALBUTEROL SULFATE 2.5 MG/0.5 ML INH NEB SOLN INH SCH ×4 (07:22→20:27)
[2017-04-13] MEDS: SERTRALINE HCL 50 MG TAB PEG SCH (09:15)
[2017-04-13] MEDS: ATENOLOL 25 MG TAB PEG SCH (09:15)
[2017-04-13] MEDS: LACTOBACILLUS ACIDOPHILUS CAP (BACID) PEG SCH ×2 (09:15→21:31)
[2017-04-13] MEDS: PANTOPRAZOLE 40MG INJ (PROTONIX) (C9113) IV SCH ×2 (09:15→21:31)
[2017-04-13] MEDS: HYDROCORTISONE 1% CREAM 30 GM TOP SCH ×2 (09:16→21:32)
[2017-04-13] MEDS: HEPARIN SOD (PORCINE) 5000 UNITS/ML VIAL SC SCH ×2 (09:16→21:32)
[2017-04-13 14:00] VITALS: BP 118/69
[2017-04-13] MEDS: MIRTAZAPINE 7.5MG PER 1/2 TABLET PEG SCH (16:37)
[2017-04-13 22:00] VITALS: BP 104/62
[2017-04-14 06:00] VITALS: BP 112/60
[2017-04-14] MEDS: VANCOMYCIN ORAL SOL 250MG/5ML ORAL SYRINGE PO SCH ×3 (06:04→17:50)
[2017-04-14] MEDS: SLF 3 ML SYR IV SCH ×3 (06:04→20:48)
[2017-04-14] MEDS: LEVOTHYROXINE 112MCG TABLET (0.112MG) PEG SCH (06:04)
[2017-04-14 06:23] LABS: MEAN CORPUSCULAR HGB CONC 30.6 g/dl (32.0-36.5); MEAN CORPUSCULAR VOLUME 94.6 fl (80.0-96.0); RED CELL DISTRIBUTION WIDTH 14.4 % (11.5-14.5); WHITE BLOOD COUNT 15.6 K/mm3 (4.0-10.0)
[2017-04-14 06:47] LABS: CALCIUM LEVEL 8.2 MG/DL (8.8-10.2); CREATININE FOR GFR 1.39 MG/DL (0.70-1.30); GLOMERULAR FILTRATION RATE 52.1 (>35); POTASSIUM SERUM 4.4 MEQ/L (3.5-5.1)
[2017-04-14] MEDS: ALBUTEROL SULFATE 2.5 MG/0.5 ML INH NEB SOLN INH SCH ×4 (08:06→19:52)
[2017-04-14] MEDS: PANTOPRAZOLE 40MG INJ (PROTONIX) (C9113) IV SCH ×2 (10:24→20:48)
[2017-04-14] MEDS: LACTOBACILLUS ACIDOPHILUS CAP (BACID) PEG SCH ×2 (10:24→20:48)
[2017-04-14] MEDS: SERTRALINE HCL 50 MG TAB PEG SCH (10:24)
[2017-04-14] MEDS: ATENOLOL 25 MG TAB PEG SCH (10:24)
[2017-04-14] MEDS: HEPARIN SOD (PORCINE) 5000 UNITS/ML VIAL SC SCH ×2 (10:24→20:48)
[2017-04-14] MEDS: HYDROCORTISONE 1% CREAM 30 GM TOP SCH ×2 (10:25→20:48)
[2017-04-14 14:00] VITALS: BP 125/67
[2017-04-14] MEDS: MIRTAZAPINE 7.5MG PER 1/2 TABLET PEG SCH (17:50)
[2017-04-14] MEDS: ACETAMINOPHEN TAB 650MG DOSE (2X325MG) PEG PRN (20:48)
[2017-04-14 22:00] VITALS: BP 132/58
[2017-04-15] MEDS: VANCOMYCIN ORAL SOL 250MG/5ML ORAL SYRINGE PO SCH ×4 (00:34→16:55)
[2017-04-15] MEDS: LEVOTHYROXINE 112MCG TABLET (0.112MG) PEG SCH (05:56)
[2017-04-15] MEDS: SLF 3 ML SYR IV SCH ×3 (05:57→21:15)
[2017-04-15 07:02] LABS: MEAN CORPUSCULAR HEMOGLOBIN 29.8 pg (27.0-33.0); MEAN CORPUSCULAR HGB CONC 30.8 g/dl (32.0-36.5); MEAN CORPUSCULAR VOLUME 96.6 fl (80.0-96.0); RED CELL DISTRIBUTION WIDTH 14.5 % (11.5-14.5); WHITE BLOOD COUNT 11.7 K/mm3 (4.0-10.0)
[2017-04-15 07:18] LABS: CALCIUM LEVEL 7.7 MG/DL (8.8-10.2); CREATININE FOR GFR 1.37 MG/DL (0.70-1.30); POTASSIUM SERUM 4.6 MEQ/L (3.5-5.1)
[2017-04-15] MEDS: ALBUTEROL SULFATE 2.5 MG/0.5 ML INH NEB SOLN INH SCH ×4 (08:50→20:43)
[2017-04-15] MEDS: LACTOBACILLUS ACIDOPHILUS CAP (BACID) PEG SCH ×2 (10:02→21:14)
[2017-04-15] MEDS: HEPARIN SOD (PORCINE) 5000 UNITS/ML VIAL SC SCH ×2 (10:03→21:14)
[2017-04-15] MEDS: SERTRALINE HCL 50 MG TAB PEG SCH (10:03)
[2017-04-15] MEDS: PANTOPRAZOLE 40MG INJ (PROTONIX) (C9113) IV SCH ×2 (10:03→21:14)
[2017-04-15 10:08] VITALS: BP 119/68
[2017-04-15] MEDS: ATENOLOL 25 MG TAB PEG SCH (10:08)
[2017-04-15] MEDS: HYDROCORTISONE 1% CREAM 30 GM TOP SCH ×2 (10:08→21:15)
[2017-04-15 14:00] VITALS: BP 120/56
[2017-04-15] MEDS ORDERED: LASI40TA EN (16:26)
[2017-04-15] MEDS ORDERED: FIRS1SOL3 PO (16:27)
[2017-04-15] MEDS: MIRTAZAPINE 7.5MG PER 1/2 TABLET PEG SCH (16:49)
[2017-04-15] MEDS: ACETAMINOPHEN TAB 650MG DOSE (2X325MG) PEG PRN (21:14)
[2017-04-15 22:00] VITALS: BP 117/68
[2017-04-16] MEDS: VANCOMYCIN ORAL SOL 250MG/5ML ORAL SYRINGE PO SCH ×3 (00:10→11:28)
[2017-04-16] MEDS: LEVOTHYROXINE 112MCG TABLET (0.112MG) PEG SCH (05:56)
[2017-04-16] MEDS: SLF 3 ML SYR IV SCH ×2 (05:56→11:29)
[2017-04-16 06:00] VITALS: BP 122/64
[2017-04-16 06:35] LABS: MEAN CORPUSCULAR HEMOGLOBIN 29.8 pg (27.0-33.0); MEAN CORPUSCULAR HGB CONC 30.6 g/dl (32.0-36.5); MEAN CORPUSCULAR VOLUME 97.6 fl (80.0-96.0); RED CELL DISTRIBUTION WIDTH 14.7 % (11.5-14.5); WHITE BLOOD COUNT 12.2 K/mm3 (4.0-10.0)
[2017-04-16 06:47] LABS: CALCIUM LEVEL 8.2 MG/DL (8.8-10.2); CREATININE FOR GFR 1.6 MG/DL (0.70-1.30); GLOMERULAR FILTRATION RATE 44.3 (>35)
[2017-04-16] MEDS ORDERED: SODIUM CHLORIDE 0.9% 1000 ML IV ONE (08:15)
[2017-04-16] MEDS: HEPARIN SOD (PORCINE) 5000 UNITS/ML VIAL SC SCH (08:38)
[2017-04-16] MEDS: LACTOBACILLUS ACIDOPHILUS CAP (BACID) PEG SCH (08:38)
[2017-04-16] MEDS: PANTOPRAZOLE 40MG INJ (PROTONIX) (C9113) IV SCH (08:38)
[2017-04-16] MEDS: HYDROCORTISONE 1% CREAM 30 GM TOP SCH (08:39)
[2017-04-16] MEDS: SERTRALINE HCL 50 MG TAB PEG SCH (08:39)
[2017-04-16] MEDS: ATENOLOL 25 MG TAB PEG SCH (08:50)
[2017-04-16 09:15] VITALS: BP 102/58
[2017-04-16] MEDS: ALBUTEROL SULFATE 2.5 MG/0.5 ML INH NEB SOLN INH SCH (09:16)
[2017-04-16] MEDS ORDERED: BISACODYL 10 MG SUPP PR PRN (11:15)
[2017-04-16] MEDS ORDERED: MORPHINE 2 MG/ML 1ML SYRINGE IV PRN (11:15)
[2017-04-16] MEDS ORDERED: LORazepam 2 MG/ML VIAL (J2060) IV PRN (11:15)
[2017-04-16] MEDS ORDERED: ATROPINE SULFATE 1% OP SOLN 2 ML BTL SL PRN (11:15)
[2017-04-16] MEDS ORDERED: SCOPOLAMINE 1.5 MG TRANSDERMAL TD PRN (11:15)
[2017-04-16] MEDS ORDERED: MORPHINE 10MG/0.5ML ORAL CONCENTRATE SOLUTION U/D SL PRN (11:15)
== END 2017-04-16 12:54 | disposition expired | DRG 177 ==
LOC: EDBD 23:51 → M ED 03-30 01:38 → M ED INP 03-30 04:37 → M PCU 03-30 05:51 → M MSPAV 04-06 14:35 → UNDODISIN 04-16 12:51
PROVIDERS: ADMIT Internal Medicine; ATTEND Hospitalist
DX: J69.0 Pneumonitis due to inhalation of food and vomit (principal); J96.01 Acute respiratory failure with hypoxia; J96.02 Acute respiratory failure with hypercapnia; N17.9 Acute kidney failure, unspecified; C90.01 Multiple myeloma in remission; M87.9 Osteonecrosis, unspecified; I13.0 Hypertensive heart and chronic kidney disease with heart failure and stage 1 through stage 4 chronic kidney disease, or unspecified chronic kidney disease; A04.7 Enterocolitis due to Clostridium difficile; I50.9 Heart failure, unspecified; N18.3 Chronic kidney disease, stage 3 (moderate); F03.90 Unspecified dementia, unspecified severity, without behavioral disturbance, psychotic disturbance, mood disturbance, and anxiety; Z51.5 Encounter for palliative care; Z88.0 Allergy status to penicillin; E78.5 Hyperlipidemia, unspecified; Z79.899 Other long term (current) drug therapy; Z79.01 Long term (current) use of anticoagulants; E03.9 Hypothyroidism, unspecified; K59.00 Constipation, unspecified; F39 Unspecified mood [affective] disorder; E86.0 Dehydration; D64.9 Anemia, unspecified; Z93.1 Gastrostomy status; K21.9 Gastro-esophageal reflux disease without esophagitis; M19.90 Unspecified osteoarthritis, unspecified site

== ENCOUNTER → 2017-03-29 | Outpatient (REF) | payer MEDICARE, MEDICAID ==
--- NOTE | 2017-03-29 21:04 | REP ---
CHEST, ONE VIEW: HISTORY: Hypoxia. COMPARISON: 03/17/2017 There is poor inspiratory effort. Linear density is present in the left lower lobe consistent with scar. The right lung is clear. The heart is normal in size. The pulmonary vasculature is normal in appearance. IMPRESSION: Left lower lobe scar. Signed by Alejandro Lockhart MD 03/30/2017 09:01 A
== END ==
LOC: M RAD 19:14
PROVIDERS: ATTEND Internal Medicine
DX: R09.02 Hypoxemia (principal)

== ENCOUNTER → 2017-03-29 | Outpatient (REF) | payer MEDICARE, MEDICAID | LOC: SKLAB4 19:11 | PROVIDERS: ATTEND Internal Medicine | DX: I50.9 Heart failure, unspecified (principal) ==